=== PATIENT | female | born 1945 | race Caucasian/White ===

== ENCOUNTER → 2017-07-09 11:00 | Outpatient (CLI) | payer MEDICARE, OTHER, SELFPAY | PROVIDERS: Family Provider Internal Medicine; PCP Internal Medicine; Visit Provider Internal Medicine | DX: G47.30 Sleep apnea, unspecified (principal) | CPT/HCPCS: 95806 ==

== ENCOUNTER → 2017-07-25 15:21 | Outpatient (CLI) | payer MEDICARE, OTHER, SELFPAY ==
--- NOTE | 2017-07-25 15:23 | HPBI_ITS ---
MAMMOGRAPHY - BILATERAL SCREENING REASON FOR EXAM: Female, 71 years old. Routine annual screening examination. PERTINENT HISTORY: Non-contributory. Remote left excisional breast biopsy. TECHNIQUE: Digital bilateral breast donna (3D mammographic acquisition) in the CC and MLO projections. 2-D mediolateral oblique (MLO) and craniocaudad (CC) views of both breasts were obtained. CAD: Full Field Digital Mammography with Computer Added Detection was performed. COMPARISON: Comparison is made with prior study dated July 18, 2016 and July 16, 2015. FINDINGS: Breast Composition: The breasts are heterogeneously dense, which may obscure small masses. There are no dominant masses or suspicious calcifications. No other significant abnormalities are identified. There has been no significant change since the prior study. HPBI/SCREENING MAMM (CAD), BILAT IMPRESSION: Stable bilateral screening mammogram. Yearly follow-up mammogram recommended. (A) ASSESSMENT CATEGORY: BIRADS Category 1: Negative. A letter regarding these results will be sent to the patient by the facility within 30 days. Approximately 10% of breast cancers are not detected by mammography. A normal mammogram should not delay biopsy of a clinically suspicious abnormality. [id number] Electronically Signed: Yaya Bartlett MD at 8:07 EST Tel [phone], Service support ,
== END ==
PROVIDERS: Family Provider Internal Medicine; PCP Internal Medicine; Visit Provider Internal Medicine
DX: Z12.31 Encounter for screening mammogram for malignant neoplasm of breast (principal)
CPT/HCPCS: 77063; 77067

== ENCOUNTER → 2017-08-10 10:15 | Outpatient (CLI) | payer MEDICARE, OTHER, SELFPAY ==
[2017-08-10 12:20] LABS: Absolute Lymphocyte Count 1.98 X10^3/ul (0.83-4.51); Absolute Neutrophil Count 2.3 X10^3/uL (2.0-7.7); Basophil# 0.03 X10^3/uL; Basophil% 0.6 % (0-1); Eosinophil# 0.19 X10^3/uL; Hematocrit 47.1 % (37-47); Hemoglobin 15.6 g/dl (12.0-15.0); Lymphocyte # 1.98 X10^3/ul (4.0); Lymphocyte % 41.2 % (19-41); Mean Corp Hgb Conc 33.1 g/gl (32-36); Mean Corpuscular Hgb 30.4 pg (27.0-32.0); Mean Corpuscular Volume 91.8 fL (81-99); Mean Platelet Vol. 10.9 fl (6.2-12.0); Monocyte# 0.27 X10^3/uL; Monocyte% 5.6 % (0-10); Neutrophil # 2.34 X10^3/uL (2.7-7.7); Neutrophil % 48.6 % (47-70); Platelet Count 267 K/mm3 (150-450); RBC Distribution Width CV 13.4 % (11.6-14.6); RBC Distribution Width SD 44.7 fl (35.1-43.9); Red Blood Count 5.13 M/mm3 (4.2-5.4); White Blood Count 4.8 K/mm3 (4.4-11.0)
[2017-08-10 12:22] LABS: POSITIVE COUNT NO; POSITIVE DIFFERENTIAL NO; POSITIVE MORPHOLOGY NO
[2017-08-10 12:28] LABS: ALB/GLOB Ratio 1.2 RATIO (0.9-2.4); AST(SGOT) 31 U/L (15-37); Alanine Aminotransfer ALT/SGPT 38 U/L (13-56); Albumin, Serum 3.9 g/dL (3.2-5.0); Alkaline Phosphatase 51 U/L (45-117); Anion Gap 10 (5-15); BUN 16 mg/dL (7-18); BUN/Creat Ratio 18.7 RATIO (10-20); Calcium,Total 8.8 mg/dL (8.5-10.1); Chloride 106 mmol/L (98-107); Creatinine, Serum 0.86 mg/dL (0.55-1.02); EST Glomerular Filtration Rate 70 mL/min (>60); Est Glom Filt Rate - Afr Amer 85 mL/min (>60); Globulin 3.3 g/dL (2.2-4.2); Glucose 94 mg/dL (74-106); Protein, Total 7.2 g/dL (6.4-8.2); Sodium Level 140 mmol/L (136-145)
== END ==
PROVIDERS: Family Provider Internal Medicine; PCP Internal Medicine; Visit Provider Internal Medicine Rheumatology
DX: M06.00 Rheumatoid arthritis without rheumatoid factor, unspecified site (principal); Z79.899 Other long term (current) drug therapy; M17.0 Bilateral primary osteoarthritis of knee
CPT/HCPCS: 36415; 80053; 85025

== ENCOUNTER → 2018-01-01 13:51 | Outpatient (CLI) | payer MEDICARE, OTHER, SELFPAY ==
[2018-01-01 15:52] LABS: Absolute Lymphocyte Count 2.05 X10^3/ul (0.83-4.51); Absolute Neutrophil Count 2.2 X10^3/uL (2.0-7.7); Basophil# 0.06 X10^3/uL; Basophil% 1.2 % (0-1); Eosinophil# 0.32 X10^3/uL; Eosinophils% 6.4 % (0-5); Hematocrit 43.4 % (37-47); Hemoglobin 14.9 g/dl (12.0-15.0); Lymphocyte # 2.05 X10^3/ul (4.0); Mean Corp Hgb Conc 34.3 g/gl (32-36); Mean Corpuscular Hgb 31.4 pg (27.0-32.0); Mean Corpuscular Volume 91.4 fL (81-99); Mean Platelet Vol. 11.5 fl (6.2-12.0); Monocyte# 0.39 X10^3/uL; Monocyte% 7.8 % (0-10); Neutrophil # 2.17 X10^3/uL (2.7-7.7); Neutrophil % 43.4 % (47-70); Platelet Count 263 K/mm3 (150-450); RBC Distribution Width CV 13.4 % (11.6-14.6); RBC Distribution Width SD 44.1 fl (35.1-43.9); Red Blood Count 4.75 M/mm3 (4.2-5.4)
[2018-01-01 15:59] LABS: ALB/GLOB Ratio 1.2 RATIO (0.9-2.4); AST(SGOT) 26 U/L (15-37); Alanine Aminotransfer ALT/SGPT 27 U/L (13-56); Albumin, Serum 3.7 g/dL (3.2-5.0); Alkaline Phosphatase 67 U/L (45-117); Anion Gap 8 (5-15); BUN 16 mg/dL (7-18); BUN/Creat Ratio 16.9 RATIO (10-20); Calcium,Total 8.5 mg/dL (8.5-10.1); Chloride 109 mmol/L (98-107); Creatinine, Serum 0.95 mg/dL (0.55-1.02); EST Glomerular Filtration Rate 62 mL/min (>60); Est Glom Filt Rate - Afr Amer 75 mL/min (>60); Globulin 3.1 g/dL (2.2-4.2); Glucose 144 mg/dL (74-106); Potassium 4.1 mmol/L (3.5-5.1); Protein, Total 6.8 g/dL (6.4-8.2); Sodium Level 143 mmol/L (136-145)
[2018-01-01 16:00] LABS: POSITIVE COUNT NO; POSITIVE DIFFERENTIAL NO; POSITIVE MORPHOLOGY NO
== END ==
PROVIDERS: Family Provider Internal Medicine; PCP Internal Medicine; Visit Provider Internal Medicine Rheumatology
DX: M06.00 Rheumatoid arthritis without rheumatoid factor, unspecified site (principal); Z79.899 Other long term (current) drug therapy; M17.0 Bilateral primary osteoarthritis of knee; M81.0 Age-related osteoporosis without current pathological fracture; M47.897 Other spondylosis, lumbosacral region; M47.892 Other spondylosis, cervical region; M50.30 Other cervical disc degeneration, unspecified cervical region; E78.5 Hyperlipidemia, unspecified; G47.33 Obstructive sleep apnea (adult) (pediatric)
CPT/HCPCS: 36415; 80053; 85025

== ENCOUNTER → 2018-03-29 13:51 | Outpatient (CLI) | payer MEDICARE, OTHER, SELFPAY ==
--- NOTE | 2018-03-29 13:57 | US_ITS ---
STUDY: ULTRASOUND BREAST - LEFT REASON FOR EXAM: Female, 72 years old. Dimpling of the left periareolar region. TECHNIQUE: Axial and longitudinal images of the LEFT breast were performed with a high resolution ultrasound transducer. COMPARISON: Comparison is made with prior mammogram done earlier today. FINDINGS: LEFT Breast: There is evidence of a dilated subareolar ducts. No solid or cystic mass lesion is seen. US/Breast Limited Unilateral IMPRESSION: Mildly dilated subareolar ducts. Routine mammographic follow-up is recommended. ASSESSMENT CATEGORY: BIRADS Category 2: Benign. A letter regarding these results will be sent to the patient by the facility within 30 days. Electronically Signed: Yaya Bartlett MD at 15:07 EDT Tel [phone], Service support ,
--- NOTE | 2018-03-29 13:57 | BI_ITS ---
MAMMOGRAPHY - UNILATERAL DIAGNOSTIC: LEFT BREAST REASON FOR EXAM: Female, 72 years old. Dimpling in the upper outer quadrant of the left breast. Remote left excisional breast biopsy. PERTINENT HISTORY: Non-contributory. TECHNIQUE: Digital unilateral breast donna (3D mammographic acquisition) in the CC and MLO projections. 2-D mediolateral oblique (MLO) and craniocaudad (CC) views of both breasts were obtained. CAD: Full Field Digital Mammography with Computer Added Detection was performed. COMPARISON: Comparison is made with prior mammogram dated July 17, 2017. FINDINGS: Breast Composition: The breasts are heterogeneously dense, which may obscure small masses. There are no dominant masses or suspicious calcifications. No other significant abnormalities are identified. There has been no significant change since the prior study. BI/DIAG MAMM W/CAD, BILAT IMPRESSION: Stable unilateral diagnostic mammogram. Ultrasound of the left breast is recommended for further evaluation. ASSESSMENT CATEGORY: BIRADS Category 0: Incomplete. Need additional imaging evaluation. A letter regarding these results will be sent to the patient by the facility within 30 days. Approximately 10% of breast cancers are not detected by mammography. A normal mammogram should not delay biopsy of a clinically suspicious abnormality. Electronically Signed: Yaya Bartlett MD at 15:07 EDT Tel [phone], Service support ,
== END ==
PROVIDERS: Family Provider Internal Medicine; PCP Internal Medicine; Referring Provider Internal Medicine; Visit Provider Internal Medicine
DX: Z12.31 Encounter for screening mammogram for malignant neoplasm of breast (principal); N63.20 Unspecified lump in the left breast, unspecified quadrant
CPT/HCPCS: 76642; 77063; 77066

== ENCOUNTER → 2018-04-02 07:32 | Outpatient (CLI) | payer MEDICARE, OTHER, SELFPAY ==
[2018-04-02 10:26] LABS: Absolute Lymphocyte Count 2.09 X10^3/ul (0.83-4.51); Basophil# 0.05 X10^3/uL; Basophil% 0.8 % (0-1); Eosinophil# 0.27 X10^3/uL; Eosinophils% 4.6 % (0-5); Hematocrit 47.3 % (37-47); Hemoglobin 15.9 g/dl (12.0-15.0); Lymphocyte # 2.09 X10^3/ul (4.0); Lymphocyte % 35.2 % (19-41); Mean Corp Hgb Conc 33.6 g/gl (32-36); Mean Corpuscular Hgb 30.6 pg (27.0-32.0); Mean Corpuscular Volume 91.1 fL (81-99); Mean Platelet Vol. 10.8 fl (6.2-12.0); Monocyte% 8.4 % (0-10); Neutrophil # 3.02 X10^3/uL (2.7-7.7); Platelet Count 325 K/mm3 (150-450); RBC Distribution Width CV 13.1 % (11.6-14.6); RBC Distribution Width SD 43.3 fl (35.1-43.9); Red Blood Count 5.19 M/mm3 (4.2-5.4); White Blood Count 5.9 K/mm3 (4.4-11.0)
[2018-04-02 10:27] LABS: POSITIVE COUNT NO; POSITIVE DIFFERENTIAL NO; POSITIVE MORPHOLOGY NO
[2018-04-02 10:39] LABS: ALB/GLOB Ratio 1.1 RATIO (0.9-2.4); AST(SGOT) 32 U/L (15-37); Alanine Aminotransfer ALT/SGPT 47 U/L (13-56); Albumin, Serum 3.8 g/dL (3.2-5.0); Alkaline Phosphatase 75 U/L (45-117); Anion Gap 9 (5-15); BUN 20 mg/dL (7-18); BUN/Creat Ratio 21.9 RATIO (10-20); Calcium,Total 8.8 mg/dL (8.5-10.1); Chloride 106 mmol/L (98-107); Creatinine, Serum 0.92 mg/dL (0.55-1.02); EST Glomerular Filtration Rate 65 mL/min (>60); Est Glom Filt Rate - Afr Amer 78 mL/min (>60); Globulin 3.4 g/dL (2.2-4.2); Glucose 127 mg/dL (74-106); Potassium 4.4 mmol/L (3.5-5.1); Protein, Total 7.2 g/dL (6.4-8.2); Sodium Level 142 mmol/L (136-145)
== END ==
PROVIDERS: Family Provider Internal Medicine; PCP Internal Medicine; Referring Provider Internal Medicine Rheumatology; Visit Provider Internal Medicine Rheumatology
DX: M06.072 Rheumatoid arthritis without rheumatoid factor, left ankle and foot (principal); Z79.899 Other long term (current) drug therapy; M17.0 Bilateral primary osteoarthritis of knee; M81.0 Age-related osteoporosis without current pathological fracture; M47.897 Other spondylosis, lumbosacral region; M47.892 Other spondylosis, cervical region; M50.30 Other cervical disc degeneration, unspecified cervical region; E78.5 Hyperlipidemia, unspecified; G47.33 Obstructive sleep apnea (adult) (pediatric)
CPT/HCPCS: 36415; 80053; 85025

== ENCOUNTER → 2018-05-16 09:52 | Outpatient (CLI) | payer MEDICARE, OTHER, SELFPAY ==
--- NOTE | 2018-05-16 10:06 | EKG12_ITS ---
Test Reason : PRE OP Blood Pressure : / mmHG Vent. Rate : 088 BPM Atrial Rate : 088 BPM P-R Int : 148 ms QRS Dur : 080 ms QT Int : 392 ms P-R-T Axes : 051 011 057 degrees QTc Int : 474 ms Normal sinus rhythm Normal ECG When compared with ECG of 01-DEC-2007 17:20, No significant change was found Confirmed by ADRIAN GAN, RALPH ([id number]), newspaper copy editor LIZZY FUENTES ([id number]) on 05/16/2018 12:48:59 PM Referred By: Soto Crane Confirmed By:RALPH CAMPBELL MD
[2018-05-16 11:17] LABS: Hematocrit 46.6 % (37-47); Hemoglobin 15.8 g/dl (12.0-15.0); Mean Corp Hgb Conc 33.9 g/gl (32-36); Mean Corpuscular Hgb 30.2 pg (27.0-32.0); Mean Corpuscular Volume 88.9 fL (81-99); Mean Platelet Vol. 10.8 fl (6.2-12.0); Platelet Count 258 K/mm3 (150-450); RBC Distribution Width CV 12.4 % (11.6-14.6); RBC Distribution Width SD 40.3 fl (35.1-43.9); Red Blood Count 5.24 M/mm3 (4.2-5.4); White Blood Count 8.5 K/mm3 (4.4-11.0)
[2018-05-16 11:18] LABS: Scan Indicated on CBC? Y/N NO
[2018-05-16 11:47] LABS: Anion Gap 8 (5-15); BUN 16 mg/dL (7-18); BUN/Creat Ratio 17.4 RATIO (10-20); Calcium,Total 9.3 mg/dL (8.5-10.1); Chloride 105 mmol/L (98-107); Creatinine, Serum 0.92 mg/dL (0.55-1.02); EST Glomerular Filtration Rate 64 mL/min (>60); Est Glom Filt Rate - Afr Amer 77 mL/min (>60); Glucose 78 mg/dL (74-106); Potassium 4.5 mmol/L (3.5-5.1); Sodium Level 141 mmol/L (136-145)
== END ==
PROVIDERS: Family Provider Internal Medicine; PCP Internal Medicine; Referring Provider Otolaryngology Otolaryngology/Facial Plastic Surgery; Visit Provider Otolaryngology Otolaryngology/Facial Plastic Surgery
DX: Z01.818 Encounter for other preprocedural examination (principal)
CPT/HCPCS: 36415; 80048; 85027; 93005

== ENCOUNTER → 2018-06-26 15:23 | Outpatient (CLI) | payer MEDICARE, OTHER, SELFPAY ==
[2018-06-26 17:48] LABS: ALB/GLOB Ratio 1.1 RATIO (0.9-2.4); AST(SGOT) 25 U/L (15-37); Alanine Aminotransfer ALT/SGPT 32 U/L (13-56); Albumin, Serum 3.9 g/dL (3.2-5.0); Alkaline Phosphatase 62 U/L (45-117); Anion Gap 11 (5-15); BUN 16 mg/dL (7-18); BUN/Creat Ratio 19.4 RATIO (10-20); Calcium,Total 9.1 mg/dL (8.5-10.1); Chloride 107 mmol/L (98-107); Creatinine, Serum 0.82 mg/dL (0.55-1.02); EST Glomerular Filtration Rate 73 mL/min (>60); Est Glom Filt Rate - Afr Amer 88 mL/min (>60); Globulin 3.4 g/dL (2.2-4.2); Glucose 109 mg/dL (74-106); Potassium 3.7 mmol/L (3.5-5.1); Protein, Total 7.3 g/dL (6.4-8.2); Sodium Level 145 mmol/L (136-145)
[2018-06-26 17:49] LABS: Absolute Lymphocyte Count 2.14 X10^3/ul (0.83-4.51); Absolute Neutrophil Count 2.7 X10^3/uL (2.0-7.7); Basophil# 0.03 X10^3/uL; Basophil% 0.5 % (0-1); Eosinophil# 0.23 X10^3/uL; Eosinophils% 4.2 % (0-5); Hematocrit 44.7 % (37-47); Hemoglobin 15.2 g/dl (12.0-15.0); Lymphocyte # 2.14 X10^3/ul (4.0); Mean Corpuscular Hgb 30.4 pg (27.0-32.0); Mean Corpuscular Volume 89.4 fL (81-99); Mean Platelet Vol. 11.4 fl (6.2-12.0); Monocyte# 0.42 X10^3/uL; Monocyte% 7.7 % (0-10); Neutrophil # 2.66 X10^3/uL (2.7-7.7); Neutrophil % 48.4 % (47-70); Platelet Count 255 K/mm3 (150-450); RBC Distribution Width CV 12.9 % (11.6-14.6); RBC Distribution Width SD 41.6 fl (35.1-43.9); White Blood Count 5.5 K/mm3 (4.4-11.0)
[2018-06-26 17:50] LABS: POSITIVE COUNT NO; POSITIVE DIFFERENTIAL NO; POSITIVE MORPHOLOGY NO
== END ==
PROVIDERS: Family Provider Internal Medicine; PCP Internal Medicine; Referring Provider Internal Medicine Rheumatology; Visit Provider Internal Medicine Rheumatology
DX: M06.00 Rheumatoid arthritis without rheumatoid factor, unspecified site (principal); Z79.899 Other long term (current) drug therapy; M17.0 Bilateral primary osteoarthritis of knee; M81.0 Age-related osteoporosis without current pathological fracture; M47.897 Other spondylosis, lumbosacral region; M47.892 Other spondylosis, cervical region; M50.30 Other cervical disc degeneration, unspecified cervical region; E78.5 Hyperlipidemia, unspecified; G47.33 Obstructive sleep apnea (adult) (pediatric)
CPT/HCPCS: 36415; 80053; 85025

== ENCOUNTER → 2018-07-11 09:01 | Outpatient (CLI) | payer MEDICARE, OTHER, SELFPAY ==
--- NOTE | 2018-07-11 09:04 | BI_ITS ---
MAMMOGRAPHY - BILATERAL DIAGNOSTIC REASON FOR EXAM: Female, 72 years old. Skin dimpling of the left perihilar region. PERTINENT HISTORY: Non-contributory. Remote left excisional breast biopsy. TECHNIQUE: Digital bilateral breast donna (3D mammographic acquisition) in the CC and MLO projections. 2-D mediolateral oblique (MLO) and craniocaudad (CC) views of both breasts were obtained. CAD: Full Field Digital Mammography with Computer Added Detection was performed. COMPARISON: Comparison is made with prior examination of July 17, 2017 and March 29, 2018. FINDINGS: Breast Composition: The breasts are heterogeneously dense, which may obscure small masses. There are no dominant masses or suspicious calcifications. No other significant abnormalities are identified. There has been no significant change since the prior study. BI/DIAG MAMM W/CAD, BILAT IMPRESSION: Stable bilateral diagnostic mammogram. One year follow-up recommended. (A) ASSESSMENT CATEGORY: BIRADS Category 2: Benign. A letter regarding these results will be sent to the patient by the facility within 30 days. Approximately 10% of breast cancers are not detected by mammography. A normal mammogram should not delay biopsy of a clinically suspicious abnormality. Electronically Signed: Yaya Bartlett MD at 12:29 EST , Service support ,
--- NOTE | 2018-07-11 09:37 | US_ITS ---
STUDY: ULTRASOUND BREAST - LEFT REASON FOR EXAM: Female, 72 years old. Six-month follow-up examination. TECHNIQUE: Axial and longitudinal images of the LEFT breast were performed with a high resolution ultrasound transducer. COMPARISON: Comparison is made with prior mammogram done earlier today as well as prior ultrasound of the left breast dated March 29, 2018. FINDINGS: LEFT Breast: The upper outer quadrant of the left breast was examined by ultrasound. There are minimally dilated subareolar ducts. No solid or cystic mass lesion is seen. US/Breast Limited Unilateral IMPRESSION: Stable mildly dilated subareolar ducts. ASSESSMENT CATEGORY: BIRADS Category 2: Benign. A letter regarding these results will be sent to the patient by the facility within 30 days. Electronically Signed: Yaya Bartlett MD at 13:52 EST , Service support ,
== END ==
PROVIDERS: Family Provider Internal Medicine; PCP Internal Medicine; Referring Provider Internal Medicine; Visit Provider Internal Medicine
DX: N63.21 Unspecified lump in the left breast, upper outer quadrant (principal)
CPT/HCPCS: 76642; 77062; 77066; G0279

== ENCOUNTER → 2018-07-23 08:31 | Outpatient (CLI) | payer MEDICARE, OTHER, SELFPAY ==
--- NOTE | 2018-07-23 08:35 | BD_ITS ---
STUDY: DUAL ENERGY X-RAY ABSORPTIOMETRY / DXA REASON FOR EXAM: Female, 72 years old. Early menopause. No loss of height. TECHNIQUE: Bone Mineral Density (BMD) measurements of lumbar spine and bilateral hips were obtained. COMPARISON: Comparison is made with prior study dated July 18, 2016. FINDINGS: Lumbar Spine (L1-L4): g/cm2 (1.200) / T-score (0.3) / Z-score (2.0) Findings are suggestive of normal bone density with a low fracture risk. Left Femur Total: g/cm2 (0.872) / T-score (-1.1) / Z-score (0.4) Left Femoral Neck: g/cm2 (0.786) / T-score (-1.8) / Z-score (-0.1) Right Femur Total: g/cm2 (0.879) / T-score (-1.0) / Z-score (0.5) Right Femoral Neck: g/cm2 (0.833) / T-score (-1.5) / Z-score (0.2) The T-Scores on the most recent prior examination were: Lumbar Spine (L1-L4): There has been improvement of bone density since the previous examination. Left Femur Total: which represents an improvement of 3.9%. Right Femur Total: which represents an improvement of 3.2%. BD/Dexa Bone Density Study IMPRESSION: The patient is considered osteopenic as outlined below according to World Richard Organization (WHO) criteria with a moderate fracture risk. There has been improvement of bone density since the previous examination. Reference Information: The T-score is the number of standard deviations above or below the standard which is normal for young adults at their peak bone mineral density. The World Health Organization (WHO) interprets the T-scores as follows: Above -1 Normal bone density Between -1 and -2.5 Osteopenia Equal to / or below -2.5 Osteoporosis As a practical clinical guideline, osteopenia may be graded as follows: Mild -1 through -1.5 Moderate -1.6 through -2.0 Severe -2.1 through -2.4 The Z-score is the number of standard deviations above or below age-matched controls. A Z-score of less than -1.5 would be considered abnormal. References: 1. NIH Osteoporosis and Related Bone Diseases http://www.osteo.org 2. International Society for Clinical Densitometry http://www.iscd.org 3. National Osteoporosis Foundation http://www.nof.org Electronically Signed: Yaya Bartlett, at 15:16 EST , Service support ,
== END ==
PROVIDERS: Family Provider Internal Medicine; PCP Internal Medicine; Referring Provider Internal Medicine; Visit Provider Internal Medicine
DX: Z78.0 Asymptomatic menopausal state (principal); M85.50 Aneurysmal bone cyst, unspecified site
CPT/HCPCS: 77080

== ENCOUNTER → 2018-09-25 | Outpatient (CLI) | payer MEDICARE, OTHER, SELFPAY ==
[2018-09-25 17:28] LABS: Absolute Lymphocyte Count 2.85 X10^3/ul (0.83-4.51); Absolute Neutrophil Count 2.8 X10^3/uL (2.0-7.7); Basophil# 0.02 X10^3/uL; Basophil% 0.3 % (0-1); Eosinophils% 1.6 % (0-5); Hematocrit 46.6 % (37-47); Hemoglobin 15.6 g/dl (12.0-15.0); Lymphocyte # 2.85 X10^3/ul (4.0); Lymphocyte % 45.4 % (19-41); Mean Corp Hgb Conc 33.5 g/gl (32-36); Mean Corpuscular Hgb 29.3 pg (27.0-32.0); Mean Corpuscular Volume 87.4 fL (81-99); Mean Platelet Vol. 11.2 fl (6.2-12.0); Monocyte# 0.47 X10^3/uL; Monocyte% 7.5 % (0-10); Neutrophil # 2.83 X10^3/uL (2.7-7.7); Platelet Count 258 K/mm3 (150-450); RBC Distribution Width CV 13.5 % (11.6-14.6); Red Blood Count 5.33 M/mm3 (4.2-5.4); White Blood Count 6.3 K/mm3 (4.4-11.0)
[2018-09-25 17:41] LABS: POSITIVE COUNT NO; POSITIVE DIFFERENTIAL NO; POSITIVE MORPHOLOGY NO
[2018-09-25 17:43] LABS: ALB/GLOB Ratio 1.3 RATIO (0.9-2.4); AST(SGOT) 25 U/L (15-37); Alanine Aminotransfer ALT/SGPT 33 U/L (13-56); Albumin, Serum 4.3 g/dL (3.2-5.0); Alkaline Phosphatase 58 U/L (45-117); Anion Gap 9 (5-15); BUN 17 mg/dL (7-18); BUN/Creat Ratio 18.5 RATIO (10-20); Calcium,Total 9.5 mg/dL (8.5-10.1); Chloride 104 mmol/L (98-107); Creatinine, Serum 0.92 mg/dL (0.55-1.02); EST Glomerular Filtration Rate 64 mL/min (>60); Est Glom Filt Rate - Afr Amer 77 mL/min (>60); Globulin 3.3 g/dL (2.2-4.2); Glucose 89 mg/dL (74-106); Potassium 3.7 mmol/L (3.5-5.1); Protein, Total 7.6 g/dL (6.4-8.2); Sodium Level 141 mmol/L (136-145)
== END | disposition home or self-care (01) ==
LOC: MTLAB 15:35
PROVIDERS: Family Provider Internal Medicine; PCP Internal Medicine; Referring Provider Internal Medicine Rheumatology; Visit Provider Internal Medicine Rheumatology
DX: M06.00 Rheumatoid arthritis without rheumatoid factor, unspecified site (principal); Z79.899 Other long term (current) drug therapy; M17.0 Bilateral primary osteoarthritis of knee; M81.0 Age-related osteoporosis without current pathological fracture; M47.897 Other spondylosis, lumbosacral region; M47.892 Other spondylosis, cervical region; M50.30 Other cervical disc degeneration, unspecified cervical region; E78.5 Hyperlipidemia, unspecified; G47.33 Obstructive sleep apnea (adult) (pediatric)
CPT/HCPCS: 36415; 80053; 85025

== ENCOUNTER → 2018-09-26 | Outpatient (CLI) | payer MEDICARE, OTHER, SELFPAY ==
--- NOTE | 2018-09-26 12:37 | RAD_ITS ---
STUDY: X-RAY - PELVIS AND RIGHT HIP REASON FOR EXAM: Female, 72 years old. Right hip pain and groin pain. TECHNIQUE: 3 views of the pelvis and hip. COMPARISON: None. FINDINGS: There is a non-specific bowel gas pattern. Normal visualized soft tissue structures. Normal bilateral iliac wings, sacroiliac joints and visualized sacrum. Normal bilateral superior and inferior pubic rami. Normal pubic symphysis. Normal bilateral ischial tuberosities. There are osteoarthritic changes of the femoral head with marginal osteophyte formation. Normal acetabulum. There is mild articular joint space narrowing of the hip. Findings suggestive of a right femoral acetabular impingement. RAD/HIP, UNI W/ Pelvis 2-3 Views IMPRESSION: Osteoarthritis. Findings suggestive of a right femoral acetabular impingement. Electronically Signed: Yaya Bartlett, at 13:51 EDT , Service support ,
== END | disposition home or self-care (01) ==
LOC: MTRAD 12:36
PROVIDERS: Family Provider Internal Medicine; PCP Internal Medicine; Referring Provider Internal Medicine; Visit Provider Internal Medicine
DX: R10.31 Right lower quadrant pain (principal)
CPT/HCPCS: 73502

== ENCOUNTER → 2018-10-04 | Outpatient (CLI) | payer MEDICARE, OTHER, SELFPAY ==
--- NOTE | 2018-10-04 18:15 | MRI_ITS ---
STUDY: MRI RIGHT HIP REASON FOR EXAM: Female, 72 years old. Pain. Impingement. TECHNIQUE: Standardized fat and water weighted pulse sequences were obtained in all 3 orthogonal planes. COMPARISON: X-ray September 26, 2018. FINDINGS: There is moderate articular narrowing of the hip joint, with greater than 50% loss of the hyaline cartilage. There is moderate joint effusion There is lateral osteoarthritic spurring of the acetabular rim. There is edema of the anterior acetabulum. There is tear of the superior labrum, series 4 and 5 image 15/ and 16/. There is lateral osteoarthritic spurring of the femoral head. Normal femoral neck and intratrochanteric region. There is no demonstrated fracture. Normal gluteus minimus, medius and iliopsoas tendons and distal insertions. There is trochanteric and iliopsoas bursitis. Normal superior and inferior pubic rami. There is narrowing of the pubic symphysis. Normal ischial tuberosity. Normal origin of the hamstring tendons. Normal visualized iliac wing, sacroiliac joint, and sacral ala. Normal visualized soft tissue structures of the pelvis. Uterus is not seen consistent with hysterectomy. There is a pessary in the vagina. There are degenerative changes of the visualized lumbar spine. MRI/Lower Ext Joint Only (Routine) IMPRESSION: Degenerative change of the right hip with tear of the labrum and joint effusion. Reactive edema and stress injury of the acetabulum. Electronically Signed: Sunday Norris MD at 10:46 EDT , Service support ,
== END | disposition home or self-care (01) ==
LOC: MRI 17:42
PROVIDERS: Family Provider Internal Medicine; PCP Internal Medicine; Referring Provider Internal Medicine; Visit Provider Internal Medicine
DX: M25.851 Other specified joint disorders, right hip (principal)
CPT/HCPCS: 73721

== ENCOUNTER → 2018-10-07 | Outpatient (CLI) | payer MEDICARE, OTHER, SELFPAY ==
[2018-10-07 18:34] LABS: Body Fluid QC Type(s) BF1Q
[2018-10-07 18:35] LABS: Source- Body Fluid SYNOVIAL
[2018-10-08 14:43] LABS: Pathologist Review Reviewed
== END | disposition home or self-care (01) ==
PROVIDERS: Family Provider Internal Medicine; PCP Internal Medicine; Referring Provider Internal Medicine Rheumatology; Visit Provider Internal Medicine Rheumatology
DX: M06.00 Rheumatoid arthritis without rheumatoid factor, unspecified site (principal); Z79.899 Other long term (current) drug therapy; M17.0 Bilateral primary osteoarthritis of knee; M18.12 Unilateral primary osteoarthritis of first carpometacarpal joint, left hand; M81.0 Age-related osteoporosis without current pathological fracture; M47.897 Other spondylosis, lumbosacral region; M47.892 Other spondylosis, cervical region; M50.30 Other cervical disc degeneration, unspecified cervical region; E78.5 Hyperlipidemia, unspecified; G47.33 Obstructive sleep apnea (adult) (pediatric)
CPT/HCPCS: 89060

== ENCOUNTER 2018-10-24 08:00 | Outpatient (RCR) | payer MEDICARE, OTHER, SELFPAY ==
--- NOTE | 2018-10-24 08:54 | HP.PT.NRP ---
HP - Discharge Summary (1) - Patient Information LIBORIO GENTILE was seen in my office for initial evaluation on . The following Plan of Care was established for this patient: This patient was last seen in our office . Pertinent comments regarding their Physical therapy will appear below: Patient to have hip replacement- will continue HEP in pool and on land- will see after hip replacement At this point I will be discontinuing this patient from physical therapy. I would be happy to see this patient again in the future if found appropriate by the physician. Thank you! DELICIA RuddT
== END 2018-10-24 10:21 | disposition home or self-care (01) ==
LOC: PT 08:00
PROVIDERS: Family Provider Internal Medicine; PCP Internal Medicine; Visit Provider Internal Medicine Rheumatology
DX: M06.051 Rheumatoid arthritis without rheumatoid factor, right hip (principal); M16.11 Unilateral primary osteoarthritis, right hip; M17.0 Bilateral primary osteoarthritis of knee; M18.0 Bilateral primary osteoarthritis of first carpometacarpal joints; M47.897 Other spondylosis, lumbosacral region; M47.892 Other spondylosis, cervical region; M50.30 Other cervical disc degeneration, unspecified cervical region; E78.5 Hyperlipidemia, unspecified; G47.33 Obstructive sleep apnea (adult) (pediatric); Z79.899 Other long term (current) drug therapy

== ENCOUNTER → 2018-11-05 | Outpatient (CLI) | payer MEDICARE, OTHER, SELFPAY ==
--- NOTE | 2018-11-05 15:35 | MRI_ITS ---
HISTORY: Right-sided radiculopathy COMPARISON: MR lumbar spine 03/05/2013 lumbar radiographs 03/18/2013 TECHNIQUE: Multisequence multiplanar MR imaging of the lumbar spine was performed per department protocol without IV gadolinium. # of images incl. paperwork: 165 FINDINGS: There is mild dextroconvex scoliosis centered at the L2-L3 level. There is 4 mm retrolisthesis of L2 upon L3; 3 mm retrolisthesis of L3 upon L4, and grade 1 spondylolisthesis of L4 upon L5 with the anterolisthesis measuring up to 5 mm. Similar lumbar alignment was seen in February 2013. No acute fracture or subluxation. Lumbar vertebral bodies are normal in height. Moderate anterior marginal osteophytes L1-L4 and mild anterior osteophytosis at L5. Mild to moderate degenerative spurring of the visualized lower thoracic spine. Again seen is a large benign hemangioma involving most of the T12 vertebral body. There are severe discogenic endplate marrow changes at the L2-L3 and L3-L4 levels which have progressed in the interim. No focal marrow signal abnormality to suggest a pathologic process. The conus is identified opposite the L1-L2 level and is normal in morphology and signal characteristics. Severe disc space narrowing at L2-L3 and L3-L4 levels and moderate disc space narrowing L4-L5 and mild disc space narrowing L1-L2 and L5-S1 levels. All the lumbar disks are desiccated. T12-L1: No disc bulge or disc protrusion. No canal or neural foraminal stenosis. L1-2: 2 mm asymmetric to the right disc protrusion with 1 mm effacement of the ventral thecal sac without overall canal or foraminal stenosis. L2-3: Combination of retrolisthesis, dextroscoliosis, mild bilateral facet joint arthropathy, and 4 mm disc osteophyte complex results in moderate canal stenosis. No significant neural foraminal stenosis. L3-4: Combination of retrolisthesis, dextroscoliosis, mild bilateral facet joint arthropathy, and ligamentum flavum redundancy and asymmetric to the right 3 mm disc osteophyte complex results in mild canal stenosis and moderate effacement and posterior displacement of the traversing right L4 nerve root. No significant neuroforaminal stenosis. L4-5: Secondary to anterolisthesis at this level there is unroofing of the disc which combined with severe facet joint arthropathy and ligamentum flavum redundancy results in moderate canal stenosis. Mild right foraminal stenosis. No left foraminal stenosis. L5-S1: There is a 3-4 mm broad-based disc protrusion which predominantly effaces the ventral epidural fat. Severe bilateral facet joint arthropathy and ligamentum flavum redundancy more pronounced on the right results in severe right neural foraminal stenosis. No canal or left foraminal stenosis. Paravertebral soft tissues show no gross signal abnormalities. MRI/Spine Lumbar (Routine) IMPRESSION: 1. Moderate effacement and posterior displacement of traversing right L4 nerve root with mild canal stenosis at the L3-L4 level, this is new when compared to February 2013. 2. Severe right neural foraminal stenosis at L5-S1, also new in the interim. 3. Moderate canal stenosis at L2-L3. 4. Moderate canal stenosis and mild right foraminal stenosis at L4-L5. 5. Degenerative retrolisthesis and dextroconvex scoliosis as described with grade 1 spondylolisthesis of L4 upon L5, relatively unchanged alignment. There has been interval progression of discogenic endplate changes at L2-L3 and L3-L4 levels and overall degenerative changes. at 0343 Reported and signed by: Jacob García MD Electronically Signed: Jacob García MD at 3:41 EDT Tel , Service support ,
== END | disposition home or self-care (01) ==
LOC: MRI 15:30
PROVIDERS: Family Provider Internal Medicine; PCP Internal Medicine; Referring Provider Physician Assistant; Visit Provider Physician Assistant
DX: M54.16 Radiculopathy, lumbar region (principal); M43.16 Spondylolisthesis, lumbar region
CPT/HCPCS: 72148

== ENCOUNTER → 2018-12-25 | Outpatient (CLI) | payer MEDICARE, OTHER, SELFPAY ==
[2018-12-25 10:13] LABS: Absolute Neutrophil Count 2.7 X10^3/uL (2.0-7.7); Basophil# 0.05 X10^3/uL; Basophil% 0.9 % (0-1); Eosinophils% 5.4 % (0-5); Hematocrit 43.8 % (37-47); Hemoglobin 14.8 g/dL (12.0-15.0); Lymphocyte % 36.3 % (19-41); Mean Corp Hgb Conc 33.8 g/dL (32-36); Mean Corpuscular Volume 91.6 fL (81-99); Mean Platelet Vol. 10.8 fl (6.2-12.0); Monocyte# 0.48 X10^3/uL; Monocyte% 8.7 % (0-10); NRBC Flagged by Analyzer 0 % (0-5); Neutrophil # 2.67 X10^3/uL (2.7-7.7); Neutrophil % 48.5 % (47-70); Platelet Count 242 K/mm3 (150-450); RBC Distribution Width CV 13.2 % (11.6-14.6); RBC Distribution Width SD 44.2 fl (35.1-43.9); Red Blood Count 4.78 M/mm3 (4.2-5.4); White Blood Count 5.5 K/mm3 (4.4-11.0)
[2018-12-25 10:44] LABS: ALB/GLOB Ratio 1.1 RATIO (0.9-2.4); AST(SGOT) 20 U/L (15-37); Alanine Aminotransfer ALT/SGPT 29 U/L (13-56); Albumin, Serum 3.5 g/dL (3.2-5.0); Alkaline Phosphatase 58 U/L (45-117); Anion Gap 5 (5-15); BUN 17 mg/dL (7-18); BUN/Creat Ratio 21.6 RATIO (10-20); Calcium,Total 8.9 mg/dL (8.5-10.1); Chloride 108 mmol/L (98-107); Creatinine, Serum 0.79 mg/dL (0.55-1.02); EST Glomerular Filtration Rate 77 mL/min (>60); Est Glom Filt Rate - Afr Amer 93 mL/min (>60); Globulin 3.1 g/dL (2.2-4.2); Glucose 81 mg/dL (74-106); Potassium 3.9 mmol/L (3.5-5.1); Protein, Total 6.6 g/dL (6.4-8.2); Sodium Level 142 mmol/L (136-145)
== END | disposition home or self-care (01) ==
LOC: MTLAB 08:28
PROVIDERS: Family Provider Internal Medicine; PCP Internal Medicine; Referring Provider Internal Medicine Rheumatology; Visit Provider Internal Medicine Rheumatology
DX: M06.051 Rheumatoid arthritis without rheumatoid factor, right hip (principal); Z79.899 Other long term (current) drug therapy; M16.11 Unilateral primary osteoarthritis, right hip; M17.0 Bilateral primary osteoarthritis of knee; M18.12 Unilateral primary osteoarthritis of first carpometacarpal joint, left hand; M81.0 Age-related osteoporosis without current pathological fracture; M47.897 Other spondylosis, lumbosacral region; M47.892 Other spondylosis, cervical region; M50.30 Other cervical disc degeneration, unspecified cervical region; E78.5 Hyperlipidemia, unspecified; G47.33 Obstructive sleep apnea (adult) (pediatric)
CPT/HCPCS: 36415; 80053; 85025

== ENCOUNTER 2019-02-05 08:30 | Outpatient (RCR) | payer MEDICARE, OTHER, SELFPAY ==
--- NOTE | 2019-01-13 09:02 | HP.PTEVAL ---
Patient's Visit Information LIBORIO GENTILE is a 73 year old F referred to Physical Therapy by Chapito Moody MD with a diagnosis of Right THR Anterior Approach. Date of Evaluation: 01/13/19 Physical Therapist: Amy Pierce DPT - Visit Plan Frequency: 2x /Week Duration: 4 Weeks Plan: Right THr Anterior Approach 01/06- Follow anterior precautions. - Subjective Findings: Right THR 01/06/[address] Moody- stayed overnight then came home the next day. Lives with in a 2 story home- with hand rail- is able to do them well without issues. Only does them once a day. 3 stairs to enter with a handrail- does have a ramp if needed. Anterior Approach- precautions- wants her to use the walker due to no hyperextension. Bridge, cross ankle, exten leg or rotate. She aches at night- so she took a pain pill. Worst: 8/10 Agg: getting comfortable at night- Only pain she has had during the day is when she gets up. Best: 0/10 Eases: Tylenol. Pain is located in the anterior thigh-No radiating pain. Describes the pain as burning. No joint pain. Little numbness on the lateral thigh but its going away- none in her feet. Everyday is better and better. Sleep: disturbed- slept on her back and has now gotten on her side- pillow between her knees. Fully I prior to sugery- is not back to driving yet. 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 PMHx: RA Meds: Tramadol, Folic acid- Asprin for a month 2x a day. - Objective Posture: FH, RS- but can correct with verbal cues. Gait: with standard walker- step to gait pattern- slow umer with good heel/toe pattern. With FWW: more fluid- step to pattern due to physican recommendation-good heel/toe. Stairs: asc/desc 8 non recip with HR and cane for A- asc used HR significantly for propulsion forwards. Desc uncontrolled and required cane to help with deceleration. HR/TR: good with UE A. SLS: 10 sec- with LOB at end used left leg to right herself. Sensation: WNL to gross touch bilaterally. Observation: incision is covered with bandage which they have been instructed to remove today (7 days post op). No s/s of infection- does have mild bruising along posterior thigh. ROM: Hip: flexion: 90 degrees, Extn: neutral, Abd: WFL Add: to neutral IR/ER: not tested. Knee/Ankle: WFL. Strength: Ankle: 5/5, Knee: 4+/5, Hip: 2+/5 due to lack of ROM- tested at neutral- 3+/5 in available range. Flex: Gastroc: mild restriction Hamstring: moderate restriction. - Goals Goal 1:: Patient will be I with HEP and progression Goal Time Frame: 4-6 Weeks Goal 2:: Patient will ambulate >300 feet with a normalized gait pattern and NO AD Goal Time Frame: 4-6 Weeks Goal 3:: Patient will asc/desc 8 stairs recip with no HR and good pattern Goal Time Frame: 4-6 Weeks Goal 4:: Patient will demo 4+/5 strength in LE where deficit Goal Time Frame: 4-6 Weeks Goal 5:: Patient will return to all normalized ADL's/recreational activities for 1 week Goal Time Frame: 4-6 Weeks - Rehabilitation Potential Physical Therapy Diagnosis: Patient presents with hypomobility- she has decreased ROM, strenghth, flex and muscular endurance s/p Right THR leading to abnormal gait and decreased participation in ADL's. Rehabilitation Potential: Good - Anticipated Interventions Patient/Client Instruction: Educate patient on: Benefits of Fitness Program Therapeutic Exercise to Include: Strength training, Endurance training, Balance training, Coordination, Agility training, Body mechanics, Postural training, Flexibilty training, Gait and locomotor training, Passive ROM, Active ROM, Dynamic Lumbar Stabilization For the Purpose of:: To improve muscle performance and motor function Functional Training to Include: Gait training TENS: Yes Cryotherapy (ice pack, ice massage): Yes Thermo therapy (hot pack): Yes Ultrasound (thermal/non thermal): No For the Purpose of:: To decrease pain, To decrease swelling/inflammation Thank you for the opportunity to evaluate your patient. For Medicare and Medicare HMO plans, please review the plan of care and approve it. It will need to be FAXED BACK to us at [phone] for Medicare purposes. For Medicare only, by signing this I certify the plan of care. Please let me know if there are questions or concerns regarding this plan of care. Physician Signature: Date:
--- NOTE | 2019-03-07 09:56 | HP.PTDCSUM ---
HP - PT D/C Summary It has been my pleasure to treat LIBORIO GENTILE under orders from Chapito Moody MD, for the diagnosis of Right THR Anterior Approach for a total of 9 visit(s). Discharge Date: Please see the following information for a summary of their discharge status. - Subjective Subjective: Pt. reports to feeling well, still sleeps w/ cusihion between legs. HAs returned to all pior activities w/ no complaints. - Pain right hip Pain Intensity (Out of 10): 0 - Overall Improvement % Improvement: 95 - Objective Objective/Function: Posture: RS, FH. Gait: No deviations noted. Stairs: Reciprocal pattern w/ no HR & no deviations. ROM: Hip WFL Knee WFL. Strength: Knee 5/5 Ankle 5/5 Hip 5/5 throughout. Flexibility: Gastroc mild, HS mild. Sensation: WNL to gross B touch - Goals Goal 1:: Patient will be I with HEP and progression Goal Progress: Goal Met Goal 2:: Patient will ambulate >300 feet with a normalized gait pattern and NO AD Goal Progress: Goal Met Goal 3:: Patient will asc/desc 8 stairs recip with no HR and good pattern Goal Progress: Goal Met Goal 4:: Patient will demo 4+/5 strength in LE where deficit Goal Progress: Goal Met Goal 5:: Patient will return to all normalized ADL's/recreational activities for 1 week - Plan Plan: 02/05/19 - Pt. D/C, instructed to cont. HEP on her own & return if any questions. Right THR Anterior Approach 01/06- Follow anterior precautions. - D/C Information If there are questions or concerns regarding this patient's physical therapy, please feel free to call me at [phone]. Thank you for the referral of this patient. Sincerely, Amy Pierce DPT
== END 2019-02-05 19:00 | disposition home or self-care (01) ==
LOC: PT 08:30
PROVIDERS: Family Provider Internal Medicine; PCP Internal Medicine; Visit Provider Orthopaedic Surgery
DX: M16.11 Unilateral primary osteoarthritis, right hip (principal)
CPT/HCPCS: 97110; 97162; 97164

== ENCOUNTER → 2019-03-28 15:17 | Outpatient (CLI) | payer MEDICARE, OTHER, SELFPAY ==
[2019-03-28 17:50] LABS: Absolute Lymphocyte Count 2.15 X10^3/uL (0.83-4.51); Absolute Neutrophil Count 2.4 X10^3/uL (2.0-7.7); Basophil# 0.05 X10^3/uL; Eosinophil# 0.19 X10^3/uL; Eosinophils% 3.7 % (0-5); Hematocrit 44.8 % (37-47); Hemoglobin 14.8 g/dL (12.0-15.0); Lymphocyte # 2.15 X10^3/ul (4.0); Mean Corpuscular Hgb 29.4 pg (27.0-32.0); Mean Corpuscular Volume 89.1 fL (81-99); Mean Platelet Vol. 11.4 fl (6.2-12.0); Monocyte# 0.32 X10^3/uL; Monocyte% 6.3 % (0-10); NRBC Flagged by Analyzer 0 % (0-5); Neutrophil % 46.8 % (47-70); Platelet Count 274 K/mm3 (150-450); RBC Distribution Width CV 13.5 % (11.6-14.6); Red Blood Count 5.03 M/mm3 (4.2-5.4); White Blood Count 5.1 K/mm3 (4.4-11.0)
[2019-03-28 18:17] LABS: ALB/GLOB Ratio 1.1 RATIO (0.9-2.4); AST(SGOT) 34 U/L (15-37); Alanine Aminotransfer ALT/SGPT 34 U/L (13-56); Albumin, Serum 3.8 g/dL (3.2-5.0); Alkaline Phosphatase 54 U/L (45-117); Anion Gap 9 (5-15); BUN 14 mg/dL (7-18); BUN/Creat Ratio 18.4 RATIO (10-20); Chloride 108 mmol/L (98-107); Creatinine, Serum 0.76 mg/dL (0.55-1.02); EST Glomerular Filtration Rate 80 mL/min (>60); Est Glom Filt Rate - Afr Amer 97 mL/min (>60); Globulin 3.4 g/dL (2.2-4.2); Glucose 103 mg/dL (74-106); Potassium 3.8 mmol/L (3.5-5.1); Protein, Total 7.2 g/dL (6.4-8.2); Sodium Level 141 mmol/L (136-145)
== END ==
PROVIDERS: Family Provider Internal Medicine; PCP Internal Medicine; Referring Provider Internal Medicine Rheumatology; Visit Provider Internal Medicine Rheumatology
DX: M06.00 Rheumatoid arthritis without rheumatoid factor, unspecified site (principal); Z79.899 Other long term (current) drug therapy; M16.11 Unilateral primary osteoarthritis, right hip; M17.0 Bilateral primary osteoarthritis of knee; M18.12 Unilateral primary osteoarthritis of first carpometacarpal joint, left hand; M81.0 Age-related osteoporosis without current pathological fracture; M47.897 Other spondylosis, lumbosacral region; M47.892 Other spondylosis, cervical region; M50.30 Other cervical disc degeneration, unspecified cervical region
CPT/HCPCS: 36415; 80053; 85025

== ENCOUNTER → 2019-06-17 10:02 | Outpatient (CLI) | payer MEDICARE, OTHER, SELFPAY ==
[2019-06-17 12:29] LABS: Absolute Lymphocyte Count 1.57 X10^3/uL (0.83-4.51); Absolute Neutrophil Count 3.6 X10^3/uL (2.0-7.7); Basophil# 0.08 X10^3/uL; Basophil% 1.4 % (0-1); Eosinophil# 0.18 X10^3/uL; Eosinophils% 3.1 % (0-5); Hematocrit 46.8 % (37-47); Hemoglobin 15.5 g/dL (12.0-15.0); Lymphocyte # 1.57 X10^3/ul (4.0); Mean Corp Hgb Conc 33.1 g/dL (32-36); Mean Corpuscular Hgb 29.4 pg (27.0-32.0); Mean Corpuscular Volume 88.6 fL (81-99); Mean Platelet Vol. 11.4 fl (6.2-12.0); Monocyte# 0.37 X10^3/uL; Monocyte% 6.4 % (0-10); NRBC Flagged by Analyzer 0 % (0-5); Neutrophil # 3.61 X10^3/uL (2.7-7.7); Neutrophil % 61.9 % (47-70); Platelet Count 295 K/mm3 (150-450); RBC Distribution Width CV 13.8 % (11.6-14.6); RBC Distribution Width SD 44.7 fl (35.1-43.9); Red Blood Count 5.28 M/mm3 (4.2-5.4); White Blood Count 5.8 K/mm3 (4.4-11.0)
[2019-06-17 12:39] LABS: ALB/GLOB Ratio 1.2 RATIO (0.9-2.4); AST(SGOT) 21 U/L (15-37); Alanine Aminotransfer ALT/SGPT 29 U/L (13-56); Albumin, Serum 4.2 g/dL (3.2-5.0); Alkaline Phosphatase 52 U/L (45-117); Anion Gap 6 (5-15); BUN 18 mg/dL (7-18); BUN/Creat Ratio 16.7 RATIO (10-20); Calcium,Total 9.9 mg/dL (8.5-10.1); Chloride 108 mmol/L (98-107); Creatinine, Serum 1.08 mg/dL (0.55-1.02); EST Glomerular Filtration Rate 53 mL/min (>60); Est Glom Filt Rate - Afr Amer 64 mL/min (>60); Globulin 3.4 g/dL (2.2-4.2); Glucose 95 mg/dL (74-106); Potassium 3.7 mmol/L (3.5-5.1); Protein, Total 7.6 g/dL (6.4-8.2); Sodium Level 141 mmol/L (136-145)
== END ==
PROVIDERS: PCP Internal Medicine; Referring Provider Internal Medicine Rheumatology; Visit Provider Internal Medicine Rheumatology
DX: M06.032 Rheumatoid arthritis without rheumatoid factor, left wrist (principal); Z79.899 Other long term (current) drug therapy; M16.11 Unilateral primary osteoarthritis, right hip; M17.0 Bilateral primary osteoarthritis of knee; M18.12 Unilateral primary osteoarthritis of first carpometacarpal joint, left hand; M81.0 Age-related osteoporosis without current pathological fracture; M47.897 Other spondylosis, lumbosacral region; M47.892 Other spondylosis, cervical region; M50.30 Other cervical disc degeneration, unspecified cervical region; E78.5 Hyperlipidemia, unspecified; G47.33 Obstructive sleep apnea (adult) (pediatric)
CPT/HCPCS: 36415; 80053; 85025

== ENCOUNTER → 2019-07-30 10:15 | Outpatient (CLI) | payer MEDICARE, OTHER, SELFPAY ==
--- NOTE | 2019-07-30 10:18 | BI_ITS ---
MAMMOGRAPHY - BILATERAL SCREENING REASON FOR EXAM: Female, 73 years old. Routine annual screening examination. PERTINENT HISTORY: Non-contributory. Remote left excisional breast biopsy. TECHNIQUE: Digital bilateral breast jackelin (3D mammographic acquisition) in the CC and MLO projections. 2-D mediolateral oblique (MLO) and craniocaudad (CC) views of both breasts were obtained. CAD: Full Field Digital Mammography with Computer Added Detection was performed. COMPARISON: Comparison is made with prior mammogram dated July 11, 2018 and July 25, 2017. FINDINGS: Breast Composition: The breasts are heterogeneously dense, which may obscure small masses. There are no dominant masses or suspicious calcifications. No other significant abnormalities are identified. There has been no significant change since the prior study. BI/SCREEN MAMM (CAD) W/JACKELIN BILAT IMPRESSION: Stable bilateral screening mammogram. Yearly follow-up mammogram recommended. (A) ASSESSMENT CATEGORY: BIRADS Category 1: Negative. A letter regarding these results will be sent to the patient by the facility within 30 days. Approximately 10% of breast cancers are not detected by mammography. A normal mammogram should not delay biopsy of a clinically suspicious abnormality. [id number] Electronically Signed: Yaya Bartlett, at 11:01 EST , Service support ,
== END ==
PROVIDERS: Family Provider Internal Medicine; PCP Internal Medicine; Referring Provider Internal Medicine; Visit Provider Internal Medicine
DX: Z12.31 Encounter for screening mammogram for malignant neoplasm of breast (principal)
CPT/HCPCS: 77063; 77067

== ENCOUNTER → 2019-09-12 10:04 | Outpatient (CLI) | payer MEDICARE, OTHER, SELFPAY ==
[2019-09-12 12:26] LABS: Absolute Lymphocyte Count 1.79 X10^3/uL (0.83-4.51); Absolute Neutrophil Count 1.8 X10^3/uL (2.0-7.7); Basophil# 0.06 X10^3/uL; Basophil% 1.4 % (0-1); Eosinophil# 0.24 X10^3/uL; Eosinophils% 5.6 % (0-5); Hematocrit 44.8 % (37-47); Hemoglobin 15.1 g/dL (12.0-15.0); Lymphocyte # 1.79 X10^3/ul (4.0); Mean Corp Hgb Conc 33.7 g/dL (32-36); Mean Corpuscular Volume 89.1 fL (81-99); Mean Platelet Vol. 11.3 fl (6.2-12.0); Monocyte# 0.37 X10^3/uL; Monocyte% 8.7 % (0-10); NRBC Flagged by Analyzer 0 % (0-5); Neutrophil # 1.79 X10^3/uL (2.7-7.7); Neutrophil % 42.1 % (47-70); Platelet Count 252 K/mm3 (150-450); RBC Distribution Width CV 12.8 % (11.6-14.6); RBC Distribution Width SD 41.7 fl (35.1-43.9); Red Blood Count 5.03 M/mm3 (4.2-5.4); White Blood Count 4.3 K/mm3 (4.4-11.0)
[2019-09-12 12:28] LABS: ALB/GLOB Ratio 1.1 RATIO (0.9-2.4); AST(SGOT) 23 U/L (15-37); Alanine Aminotransfer ALT/SGPT 25 U/L (13-56); Albumin, Serum 3.5 g/dL (3.2-5.0); Alkaline Phosphatase 52 U/L (45-117); Anion Gap 7 (5-15); BUN 15 mg/dL (7-18); Calcium,Total 8.8 mg/dL (8.5-10.1); Chloride 104 mmol/L (98-107); Creatinine, Serum 0.83 mg/dL (0.55-1.02); EST Glomerular Filtration Rate 72 mL/min (>60); Est Glom Filt Rate - Afr Amer 87 mL/min (>60); Globulin 3.2 g/dL (2.2-4.2); Glucose 91 mg/dL (74-106); Potassium 3.9 mmol/L (3.5-5.1); Protein, Total 6.7 g/dL (6.4-8.2); Sodium Level 138 mmol/L (136-145)
== END ==
PROVIDERS: PCP Internal Medicine; Referring Provider Internal Medicine Rheumatology; Visit Provider Internal Medicine Rheumatology
DX: M06.09 Rheumatoid arthritis without rheumatoid factor, multiple sites (principal); Z79.899 Other long term (current) drug therapy; M16.11 Unilateral primary osteoarthritis, right hip; M17.0 Bilateral primary osteoarthritis of knee; M18.12 Unilateral primary osteoarthritis of first carpometacarpal joint, left hand; M81.0 Age-related osteoporosis without current pathological fracture; M47.897 Other spondylosis, lumbosacral region; M47.892 Other spondylosis, cervical region; M50.30 Other cervical disc degeneration, unspecified cervical region; E78.5 Hyperlipidemia, unspecified; G47.33 Obstructive sleep apnea (adult) (pediatric)
CPT/HCPCS: 36415; 80053; 85025

== ENCOUNTER → 2019-12-04 08:03 | Outpatient (CLI) | payer MEDICARE, OTHER, SELFPAY ==
[2019-12-04 09:59] LABS: Absolute Lymphocyte Count 1.74 X10^3/uL (0.83-4.51); Absolute Neutrophil Count 3.3 X10^3/uL (2.0-7.7); Basophil# 0.05 X10^3/uL; Basophil% 0.9 % (0-1); Eosinophil# 0.17 X10^3/uL; Hematocrit 46.9 % (37-47); Hemoglobin 15.4 g/dL (12.0-15.0); Lymphocyte # 1.74 X10^3/ul (4.0); Mean Corp Hgb Conc 32.8 g/dL (32-36); Mean Corpuscular Hgb 30.1 pg (27.0-32.0); Mean Corpuscular Volume 91.6 fL (81-99); Mean Platelet Vol. 11.1 fl (6.2-12.0); Monocyte# 0.36 X10^3/uL; Monocyte% 6.4 % (0-10); NRBC Flagged by Analyzer 0 % (0-5); Neutrophil # 3.28 X10^3/uL (2.7-7.7); Neutrophil % 58.3 % (47-70); Platelet Count 274 K/mm3 (150-450); RBC Distribution Width SD 43.8 fl (35.1-43.9); Red Blood Count 5.12 M/mm3 (4.2-5.4); White Blood Count 5.6 K/mm3 (4.4-11.0)
[2019-12-04 10:31] LABS: ALB/GLOB Ratio 1.1 RATIO (0.9-2.4); AST(SGOT) 24 U/L (15-37); Alanine Aminotransfer ALT/SGPT 27 U/L (13-56); Albumin, Serum 3.8 g/dL (3.2-5.0); Alkaline Phosphatase 65 U/L (45-117); Anion Gap 10 (5-15); BUN 23 mg/dL (7-18); BUN/Creat Ratio 23.8 RATIO (10-20); Chloride 103 mmol/L (98-107); Creatinine, Serum 0.97 mg/dL (0.55-1.02); EST Glomerular Filtration Rate 60 mL/min (>60); Est Glom Filt Rate - Afr Amer 73 mL/min (>60); Globulin 3.5 g/dL (2.2-4.2); Glucose 93 mg/dL (74-106); Potassium 3.8 mmol/L (3.5-5.1); Protein, Total 7.3 g/dL (6.4-8.2); Sodium Level 137 mmol/L (136-145)
== END ==
PROVIDERS: PCP Internal Medicine; Visit Provider Internal Medicine Rheumatology
DX: M06.09 Rheumatoid arthritis without rheumatoid factor, multiple sites (principal); Z79.899 Other long term (current) drug therapy; M16.11 Unilateral primary osteoarthritis, right hip; M17.0 Bilateral primary osteoarthritis of knee; M18.12 Unilateral primary osteoarthritis of first carpometacarpal joint, left hand; M81.0 Age-related osteoporosis without current pathological fracture
CPT/HCPCS: 36415; 80053; 85025

== ENCOUNTER → 2020-02-19 08:57 | Outpatient (CLI) | payer MEDICARE, OTHER, SELFPAY ==
[2020-02-19 09:59] LABS: Absolute Lymphocyte Count 1.39 X10^3/uL (0.83-4.51); Absolute Neutrophil Count 4.3 X10^3/uL (2.0-7.7); Basophil# 0.04 X10^3/uL; Basophil% 0.6 % (0-1); Eosinophil# 0.07 X10^3/uL; Eosinophils% 1.1 % (0-5); Hematocrit 45.9 % (37-47); Hemoglobin 15.2 g/dL (12.0-15.0); Lymphocyte # 1.39 X10^3/ul (4.0); Lymphocyte % 22.4 % (19-41); Mean Corp Hgb Conc 33.1 g/dL (32-36); Mean Corpuscular Hgb 30.3 pg (27.0-32.0); Mean Corpuscular Volume 91.6 fL (81-99); Mean Platelet Vol. 10.8 fl (6.2-12.0); Monocyte# 0.35 X10^3/uL; Monocyte% 5.6 % (0-10); NRBC Flagged by Analyzer 0 % (0-5); Neutrophil # 4.34 X10^3/uL (2.7-7.7); Platelet Count 253 K/mm3 (150-450); RBC Distribution Width CV 13.2 % (11.6-14.6); RBC Distribution Width SD 44.4 fl (35.1-43.9); Red Blood Count 5.01 M/mm3 (4.2-5.4); White Blood Count 6.2 K/mm3 (4.4-11.0)
[2020-02-19 10:30] LABS: ALB/GLOB Ratio 1.1 RATIO (0.9-2.4); AST(SGOT) 28 U/L (15-37); Alanine Aminotransfer ALT/SGPT 27 U/L (13-56); Albumin, Serum 3.8 g/dL (3.2-5.0); Alkaline Phosphatase 58 U/L (45-117); Anion Gap 3 (5-15); BUN 19 mg/dL (7-18); BUN/Creat Ratio 20.3 RATIO (10-20); Calcium,Total 9.4 mg/dL (8.5-10.1); Chloride 103 mmol/L (98-107); Creatinine, Serum 0.94 mg/dL (0.55-1.02); EST Glomerular Filtration Rate 62 mL/min (>60); Est Glom Filt Rate - Afr Amer 75 mL/min (>60); Globulin 3.5 g/dL (2.2-4.2); Glucose 93 mg/dL (74-106); Potassium 4.3 mmol/L (3.5-5.1); Protein, Total 7.3 g/dL (6.4-8.2); Sodium Level 138 mmol/L (136-145)
== END ==
PROVIDERS: PCP Internal Medicine; Referring Provider Internal Medicine Rheumatology; Visit Provider Internal Medicine Rheumatology
DX: M06.09 Rheumatoid arthritis without rheumatoid factor, multiple sites (principal); Z79.899 Other long term (current) drug therapy; M16.11 Unilateral primary osteoarthritis, right hip; M17.0 Bilateral primary osteoarthritis of knee; M18.12 Unilateral primary osteoarthritis of first carpometacarpal joint, left hand; M81.0 Age-related osteoporosis without current pathological fracture; M47.897 Other spondylosis, lumbosacral region; M47.892 Other spondylosis, cervical region; M50.30 Other cervical disc degeneration, unspecified cervical region; E78.5 Hyperlipidemia, unspecified; G47.33 Obstructive sleep apnea (adult) (pediatric)
CPT/HCPCS: 36415; 80053; 85025

== ENCOUNTER → 2020-03-25 | Outpatient (CLI) | payer MEDICARE, OTHER, SELFPAY ==
[2020-03-25 14:33] LABS: CRP < 2.90 mg/L (0.0-3.0)
[2020-03-25 14:42] LABS: Erythrocyte Sedimentation Rate 2 mm/hr (0-30)
== END | disposition home or self-care (01) ==
PROVIDERS: PCP Internal Medicine; Visit Provider Internal Medicine
DX: R51.9 Headache, unspecified (principal)
CPT/HCPCS: 85652; 86140

== ENCOUNTER → 2020-05-12 08:07 | Outpatient (CLI) | payer MEDICARE, OTHER, SELFPAY ==
[2020-05-12 10:09] LABS: Absolute Lymphocyte Count 2.26 X10^3/uL (0.83-4.51); Absolute Neutrophil Count 1.8 X10^3/uL (2.0-7.7); Basophil# 0.06 X10^3/uL; Basophil% 1.3 % (0-1); Eosinophil# 0.12 X10^3/uL; Eosinophils% 2.6 % (0-5); Hematocrit 48.3 % (37-47); Hemoglobin 15.9 g/dL (12.0-15.0); Lymphocyte # 2.26 X10^3/ul (4.0); Lymphocyte % 48.2 % (19-41); Mean Corp Hgb Conc 32.9 g/dL (32-36); Mean Corpuscular Hgb 30.9 pg (27.0-32.0); Mean Platelet Vol. 11.5 fl (6.2-12.0); Monocyte# 0.44 X10^3/uL; Monocyte% 9.4 % (0-10); NRBC Flagged by Analyzer 0 % (0-5); Neutrophil % 38.3 % (47-70); Platelet Count 300 K/mm3 (150-450); RBC Distribution Width CV 12.9 % (11.6-14.6); Red Blood Count 5.14 M/mm3 (4.2-5.4); White Blood Count 4.7 K/mm3 (4.4-11.0)
[2020-05-12 10:28] LABS: ALB/GLOB Ratio 1.2 RATIO (0.9-2.4); AST(SGOT) 21 U/L (15-37); Alanine Aminotransfer ALT/SGPT 27 U/L (13-56); Albumin, Serum 3.8 g/dL (3.2-5.0); Alkaline Phosphatase 48 U/L (45-117); Anion Gap 5 (5-15); BUN 15 mg/dL (7-18); BUN/Creat Ratio 18.2 RATIO (10-20); Calcium,Total 9.2 mg/dL (8.5-10.1); Chloride 106 mmol/L (98-107); Creatinine, Serum 0.82 mg/dL (0.55-1.02); EST Glomerular Filtration Rate 72 mL/min (>60); Est Glom Filt Rate - Afr Amer 88 mL/min (>60); Globulin 3.2 g/dL (2.2-4.2); Glucose 65 mg/dL (74-106); Sodium Level 140 mmol/L (136-145)
== END ==
PROVIDERS: PCP Internal Medicine; Referring Provider Internal Medicine Rheumatology; Visit Provider Internal Medicine Rheumatology
DX: M06.00 Rheumatoid arthritis without rheumatoid factor, unspecified site (principal); Z79.899 Other long term (current) drug therapy; M16.11 Unilateral primary osteoarthritis, right hip; M17.0 Bilateral primary osteoarthritis of knee; M18.12 Unilateral primary osteoarthritis of first carpometacarpal joint, left hand; M81.0 Age-related osteoporosis without current pathological fracture; M47.897 Other spondylosis, lumbosacral region; M47.892 Other spondylosis, cervical region; M50.30 Other cervical disc degeneration, unspecified cervical region; E78.5 Hyperlipidemia, unspecified; G47.33 Obstructive sleep apnea (adult) (pediatric)
CPT/HCPCS: 36415; 80053; 85025

== ENCOUNTER → 2020-06-14 10:21 | Outpatient (CLI) | payer MEDICARE, OTHER, SELFPAY ==
[2020-06-14 10:30] LABS: Pathologist Comment May follow
[2020-06-14 11:20] LABS: Synovial Fld Mononuclear WBC % 32.9 %; Synovial Fld Polynuclear WBC # 7.493 10^3/uL; Synovial Fld Polynuclear WBC % 67.1 %
[2020-06-14 11:34] LABS: AUTO B FLUID DILUENT BKGD CT WBC <0.1 RBC <0.01 (W<.1,R<.01); Appearance /Synovial Fluid Sl Cl (CLEAR); Color / Synovial Fluid Yellow (Pale Yellow); Source / Synovial Fluid LEFT KNEE; Source- Body Fluid SYNOVIAL
[2020-06-14 12:27] LABS: Lymph 34 %; Neutrophil 66 % (0-25)
[2020-06-14 12:28] LABS: Body Fluid QC Type(s) BF1Q,BF2Q; RBC /Synovial Fluid 32 /mm3 (0)
[2020-06-15 12:16] LABS: Pathologist Review Reviewed
== END ==
PROVIDERS: PCP Internal Medicine; Visit Provider Internal Medicine Rheumatology
DX: M06.00 Rheumatoid arthritis without rheumatoid factor, unspecified site (principal); Z79.899 Other long term (current) drug therapy; M16.11 Unilateral primary osteoarthritis, right hip; M17.0 Bilateral primary osteoarthritis of knee; M18.12 Unilateral primary osteoarthritis of first carpometacarpal joint, left hand; M81.0 Age-related osteoporosis without current pathological fracture; M47.897 Other spondylosis, lumbosacral region; M47.892 Other spondylosis, cervical region; M50.30 Other cervical disc degeneration, unspecified cervical region; E78.5 Hyperlipidemia, unspecified; G47.33 Obstructive sleep apnea (adult) (pediatric)
CPT/HCPCS: 87070; 87075; 87205; 89050; 89051; 89060

== ENCOUNTER 2020-07-02 15:59 | Inpatient (IN) | payer MEDICARE, OTHER, SELFPAY ==
[2020-07-02 14:17] VITALS: BP 143/84; PULSE 88; RESP 16; TEMP 36.8; O2SAT 97
[2020-07-02 14:47] VITALS: BMI 21.8
[2020-07-02 14:57] VITALS: BMI 21.8
[2020-07-02 16:41] LABS: Hematocrit 46.8 % (37-47); Hemoglobin 15.4 g/dL (12.0-15.0); Mean Corp Hgb Conc 32.9 g/dL (32-36); Mean Corpuscular Hgb 30.4 pg (27.0-32.0); Mean Corpuscular Volume 92.3 fL (81-99); Mean Platelet Vol. 10.9 fl (6.2-12.0); Platelet Count 196 K/mm3 (150-450); RBC Distribution Width CV 12.5 % (11.6-14.6); RBC Distribution Width SD 42.3 fl (35.1-43.9); Red Blood Count 5.07 M/mm3 (4.2-5.4); White Blood Count 3.7 K/mm3 (4.4-11.0)
[2020-07-02 16:43] LABS: Anion Gap 4 (5-15); BUN 13 mg/dL (7-18); BUN/Creat Ratio 16.5 RATIO (10-20); Chloride 104 mmol/L (98-107); Creatinine, Serum 0.79 mg/dL (0.55-1.02); EST Glomerular Filtration Rate 76 mL/min (>60); Est Glom Filt Rate - Afr Amer 92 mL/min (>60); Estimated Creatinine Clearance 40.22 ml/min; Glucose 88 mg/dL (74-106); POSITIVE COUNT NO; POSITIVE DIFFERENTIAL NO; POSITIVE MORPHOLOGY NO; Potassium 3.6 mmol/L (3.5-5.1); Scan Indicated on CBC? Y/N NO; Sodium Level 138 mmol/L (136-145)
--- NOTE | 2020-07-02 16:55 | HP.PCM_ITS ---
Problem List (1) Disseminated herpes zoster Status: Acute (2) Rheumatoid arthritis Status: Chronic (3) Immunocompromised state due to drug therapy Status: Chronic History of Present Illness Date of Admission: 07/02/20 Mrs. Wright is a 74 year old WF with a patient of Dr. Jena Valentin with a past medical history of rheumatoid arthritis on immunosuppression with Orencia and methotrexate who began to have itching with a flat rash starting last Sunday. She states that it has progressively gotten worse and she is started to have some burning pain and sharp shooting pain in the areas of the rash. The rash started on her left side of her head near her left ear and has now spread to her scalp the back of her neck her anterior neck and chest and mildly on the right side of her face there is no ocular, oral or ear canal lesions noted at this time. She was recently taken off of her Orencia and methotrexate in order to receive the COVID-19 vaccine second dose. She had been initiated on Valtrex as an outpatient but with the progressively worsening rash and now the herpetic appearance Dr. Valentin talk to Dr. Mcintosh and he recommended inpatient treatment with IV acyclovir for 24 to 48 hours. She was directly admitted from home to [facility]. Past Medical History Past Medical History (Chronic Problems): Chronic Problems (Last Reviewed 04/04/18 @ 12:[address] Gerber Zaragoza MD) Rheumatoid arthritis (Chronic) Immunocompromised state due to drug therapy (Chronic) Medical History: Medical History (Last Reviewed 07/02/20 @ 17:[address] Lillian Suarez DO) Rheumatoid arthritis M06.9 Allergies cat dander Allergy (Verified 08/18/16 15:38) Unknown hydroxychloroquine [From Plaquenil] Adverse Reaction (Verified 07/02/20 14:57) photosensitivity niacin Adverse Reaction (Verified 07/02/20 14:57) Rash Penicillins Adverse Reaction (Verified 07/02/20 14:57) Rash Home Medications: Ambulatory Orders Medication Instructions Recorded Abatacept [Orencia] 125 mg SQ QWEEK 08/18/16 Calcium Carbonate/Vitamin D3 1 each PO BID 08/18/16 [Calcium 600-Vit D3 200 Tablet] Folic Acid 1 mg PO SUMOTUTHFRSA 08/18/16 Methotrexate 20 mg PO WE 08/18/16 traMADol [Ultram (G)] 1 - 2 tab PO Q6H PRN PRN 08/18/16 denosumab 60 mg/mL subcutaneous 60 mg SC [id number] 04/03/18 syringe Ezetimibe 10 mg PO DAILY 07/02/20 Folic Acid 2 mg PO WE 07/02/20 Surgical History: Surgical History (Last Reviewed 07/02/20 @ 17:[address] 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 Lillian Suarez DO) Mother Hypertension Sister Lupus History Items: No pertinent history Paternal Family History: Family History (Last Reviewed 07/02/20 @ 17:[address] Lillian Suarez DO) Mother Hypertension Sister Lupus Review of Systems Constitutional: Denies: Anorexia, Chills, Fever, Night Sweats, Malaise, Weakness, Weight Change, Fatigue Eyes: Denies: Blurred vision, Conjunctivae Inflammation, Drainage, Eyelid Inflammation, Pain, Redness, Vision Change HEENT: Denies: Difficulty Hearing, Difficulty Swallowing, Head Aches, Nasal bleeding, Nasal Congestion, Post Nasal Drip, Sinus Congestion, Sinus Drainage, Sore Throat, Visual Changes Cardiovascular: Denies: Chest Pain, Chest Pressure, Chest Tightness, Edema Respiratory: Denies: Cough, Shortness of Breath, Shortness of breath at rest, Shortness of breath upon exertion, Sputum production, Wheezing Gastrointestinal: Denies: Abdominal Pain, Constipation, Diarrhea, Nausea, Vomiting Genitourinary: Denies: Dysuria, Frequency Musculoskeletal: Reports: Joint Pain, Joint stiffness, Joint swelling, Joint Tenderness. Denies: Back Pain, Hand Pain, Neck Pain Skin: Reports: Lesions, Pruritis, Rash, Skin Changes. Denies: Dryness, Jaundice, Wounds Neurological: Denies: Balance problems, Blurred vision, Double vision, Confusion, Focal weakness, Headaches, Numbness, Tingling Psychiatric: Denies: Anxiety, Depression Endocrine: Denies: Change in Body Habitus, Heat/ Cold Intolerance, Polydipsia, Polyuria Hematologic/ Lymphatic: Denies: Adenopathy, Anemia, Easy Bruising, Easy Bleeding, Petechiae, Purpura VTE Information - Inpt Only VTE Present on Admission: No VTE Mechan Device Prophylaxis: SCD's VTE Pharm Prophylaxis ordered?: No Reason prophylaxis not ordered:: Treatment Not Indicated - Early ambulation - Physical Exam Vitals/I&O's: Vital Signs Temp Pulse Resp BP Pulse Ox 98.2 F 88 16 143/84 H 97 07/02/20 14:17 07/02/20 14:17 07/02/20 14:17 07/02/20 14:17 07/02/20 14:17 Oxygen Delivery Method Room Air Weight: 54.1 kg Body Mass Index (BMI) 21.8 General: Alert, Oriented x3, Cooperative, No apparent distress, Well developed, Well nourished, - - Older white female lying in bed appears well, at bedside, patient appears younger than stated age HEENT: Atraumatic, PERRLA, EOMI, Normocephalic, EAC Clear Oral: Moist Mucosa, No Gingival or Mucosal Lesions/ Ulcerations Neck: Supple, Trachea Midline Lungs: Clear to auscultation, Normal air movement, No rhonchi, No wheeze, No rales Cardiovascular: Regular rate, Regular Rhythm, Normal S1, Normal S2, No murmurs, No Ectopic Activity, No rub noted, No Gallop Abdomen: Bowel Sounds Present, Soft, Non Tender, Non-Distended, No Hepato- splenomegaly Extremities: No clubbing, No cyanosis, No edema, Capillary Refill Less than 3 Seconds, Peripheral Pulses Normal Skin: No breakdown, Rash Present - Maculopapular rash with pustules noted on bilateral sides of neck, upper back, anterior neck, right face and chest Musculoskeletal: No Muscle Wasting, Arthritic Changes Neurological: Cranial nerves II-XII grossly intact, Neuro grossly intact Psych/Mental Status: Normal Affect, Appropriate Laboratory Results 07/02/20 16:15: WBC 3.7 L, RBC 5.07, Hgb 15.4 H, Hct 46.8, MCV 92.3, MCH 30.4, MCHC 32.9, RDW Std Deviation 42.3, RDW Coeff of Dejah 12.5, Plt Count 196, MPV 10.9 07/02/20 16:15: Sodium 138, Potassium 3.6, Chloride 104, Carbon Dioxide 30.0, Anion Gap 4 L, BUN 13, Creatinine 0.79, Estim Creat Clear Calc 40.22, Est GFR (MDRD) Af Amer 92, Est GFR (MDRD) Non-Af 76, BUN/Creatinine Ratio 16.5, Glucose 88, Calcium 9.0 Current Medications Acetaminophen (Acetaminophen 325 Mg Tablet) 650 mg PO Q6H PRN PRN PRN Reason: Pain Score 1-10/Temp > 100.7 F Al Hydroxide/Mg Hydroxide (Mag Hydrox/Al Hydrox/Simeth 30 Ml Udc) 30 ml PO Q6H PRN PRN PRN Reason: Gastric Burning Ezetimibe (Ezetimibe 10 Mg Tablet) 10 mg PO DAILY ADRIENNE Folic Acid (Folic Acid 1 Mg Tablet) 1 mg PO SuMoTuThFrSa@0800 ADRIENNE Gabapentin (Gabapentin 300 Mg Capsule) 300 mg PO TIDCM ADRIENNE Sodium Chloride () 250 mls @ 15 mls/hr IV .[id number] PRN PRN Reason: Saline Flush Sodium Chloride () 250 mls @ 15 mls/hr IV .[id number] PRN PRN Reason: Additional IVPB Infusion Acyclovir Sodium 540 mg/ (Dextrose) 260.8 mls @ 260.8 mls/hr IV Q8 ADRIENNE Melatonin (Melatonin 3 Mg Tablet) 3 mg PO QHS PRN PRN PRN Reason: INSOMNIA Ondansetron HCl (Ondansetron 4 Mg/2 Ml Vial) 4 mg IV Q8H PRN PRN PRN Reason: NAUSEA/VOMITING Oxycodone HCl (Oxycodone 5 Mg Tablet) 5 mg PO Q4H PRN PRN PRN Reason: Pain Score 4-10 Senna/Docusate Sodium (Senna/Docusate Sodium 1 Tablet) 2 tablet PO BID PRN PRN PRN Reason: Constipation Sodium Chloride (0.9% Saline Lock 10 Ml Syringe) 10 - 40 ml IV UD PRN PRN Reason: SALINE FLUSH Assessment/Plan All Active Problems (Last Reviewed 04/04/18 @ 12:[address] Gerber Zaragoza MD) Disseminated herpes zoster (Acute) Disseminated herpes zoster in an immunocompromised patient -Hold Orencia and methotrexate -IV acyclovir 10 mg/kg ideal body weight every 8 hours -Would continue IV acyclovir until she stops having new breakouts with lesions -Would treat with a 10-day course -Gabapentin for nerve pain -As needed oxycodone is available -As needed bowel regimen -Daily lab -Consult infectious disease Rheumatoid arthritis -Hold Orencia -Hold methotrexate -Continue folic acid DVT prophylaxis -Early mobility CODE STATUS -Full code Inpatient E&M: 51941 Init Hosp L2
[2020-07-02 18:13] VITALS: BP 161/84; PULSE 95; RESP 18; TEMP 37.2; O2SAT 95
[2020-07-02] MEDS: Folic Acid 1 MG Tablet PO (18:16)
[2020-07-02] MEDS: Ezetimibe 10 MG Tablet PO (18:16)
[2020-07-02] MEDS: Acetaminophen 325 MG Tablet 650 MG PO (18:16)
[2020-07-02] MEDS: Gabapentin 300 MG Capsule PO (18:16)
[2020-07-02 20:15] VITALS: BP 116/78; PULSE 76; RESP 16; TEMP 36.7; O2SAT 97
[2020-07-02] MEDS: oxyCODONE 5 MG Tablet PO (22:50)
[2020-07-03] VITALS (9 sets, daily range): BP systolic 116–157; BP diastolic 62–90; PULSE 66–86; RESP 14–16; TEMP 36.4–36.9; O2SAT 96–100
[2020-07-03] MEDS: Acetaminophen 325 MG Tablet 650 MG PO ×3 (06:24→18:24)
--- NOTE | 2020-07-03 07:33 | PCS.PANDOC ---
PANDEMIC DOCUMENTATION INITIATED: Date: 07/02/20 Time: 7349
[2020-07-03 07:53] LABS: Absolute Lymphocyte Count 1.55 X10^3/uL (0.83-4.51); Absolute Neutrophil Count 0.9 X10^3/uL (2.0-7.7); Basophil# 0.05 X10^3/uL; Basophil% 1.6 % (0-1); Eosinophil# 0.15 X10^3/uL; Eosinophils% 4.9 % (0-5); Hematocrit 45.8 % (37-47); Hemoglobin 15.2 g/dL (12.0-15.0); Lymphocyte # 1.55 X10^3/ul (4.0); Lymphocyte % 50.7 % (19-41); Mean Corp Hgb Conc 33.2 g/dL (32-36); Mean Corpuscular Hgb 30.2 pg (27.0-32.0); Mean Corpuscular Volume 91.1 fL (81-99); Mean Platelet Vol. 11.1 fl (6.2-12.0); Monocyte# 0.37 X10^3/uL; Monocyte% 12.1 % (0-10); NRBC Flagged by Analyzer 0 % (0-5); Neutrophil # 0.94 X10^3/uL (2.7-7.7); Neutrophil % 30.7 % (47-70); POSITIVE DIFFERENTIAL YES; Platelet Count 178 K/mm3 (150-450); RBC Distribution Width CV 12.4 % (11.6-14.6); RBC Distribution Width SD 40.6 fl (35.1-43.9); Red Blood Count 5.03 M/mm3 (4.2-5.4); White Blood Count 3.1 K/mm3 (4.4-11.0)
[2020-07-03 08:02] LABS: Differential Indicated SCAN CRITERIA MET
[2020-07-03] MEDS: Gabapentin 300 MG Capsule PO ×3 (08:09→16:27)
[2020-07-03] MEDS: oxyCODONE 5 MG Tablet PO ×4 (08:09→20:28)
[2020-07-03] MEDS: Folic Acid 1 MG Tablet PO (08:09)
[2020-07-03] MEDS: 0.9% Saline Lock 10 ML Syringe IV ×2 (08:10→14:02)
[2020-07-03 08:19] LABS: AST(SGOT) 21 U/L (15-37); Alanine Aminotransfer ALT/SGPT 24 U/L (13-56); Albumin, Serum 3.3 g/dL (3.2-5.0); Alkaline Phosphatase 52 U/L (45-117); Anion Gap 5 (5-15); BUN 10 mg/dL (7-18); Calcium,Total 8.7 mg/dL (8.5-10.1); Chloride 106 mmol/L (98-107); Creatinine, Serum 0.77 mg/dL (0.55-1.02); EST Glomerular Filtration Rate 78 mL/min (>60); Est Glom Filt Rate - Afr Amer 95 mL/min (>60); Estimated Creatinine Clearance 40.22 ml/min; Globulin 3.4 g/dL (2.2-4.2); Glucose 90 mg/dL (74-106); Magnesium 2.5 mg/dL (1.6-2.6); Phosphorus 2.7 mg/dL (2.5-4.9); Potassium 4.3 mmol/L (3.5-5.1); Protein, Total 6.7 g/dL (6.4-8.2); Sodium Level 141 mmol/L (136-145)
[2020-07-03] MEDS: Ezetimibe 10 MG Tablet PO (10:47)
--- NOTE | 2020-07-03 15:00 | PCM.PN.HOSP ---
Patient Problems: Active and Suspected Problems (Last Reviewed 07/02/20 @ 17:[address] Lillian Suarez, DO) Disseminated herpes zoster (Acute) Subjective: Still with rash over her right neck but also pain around her left ear. Patient complains of headache. She states that she gets migraines fairly commonly but this feels different than her migraine that she has pain in her neck. Denies any visual or hearing issues. Vitals/I&O's: Vital Signs Temp Pulse Resp BP Pulse Ox 36.9 C 76 14 132/62 H 96 07/03/20 14:10 07/03/20 14:10 07/03/20 14:10 07/03/20 14:10 07/03/20 14:10 Oxygen Delivery Method Room Air Weight: 54.1 kg Body Mass Index (BMI) 21.8 Intake and Output for Last 24 Hours 07/01/20 07/02/20 07/03/20 23:59 23:59 23:59 Intake Total 1040 / 1040 1281.6 / 1281.6 Balance 1040 / 1040 1281.6 / 1281.6 General: Alert, No apparent distress, Well developed, Well nourished HEENT: Atraumatic, Normocephalic, - - Tympanic membranes and ear canals are without rash or vesicles. Oral: Moist Mucosa, No Gingival or Mucosal Lesions/ Ulcerations Neck: No Nodes, Thyroid Normal Size and Texture Skin: - - Raised macular rash primarily involving the patient's right side of her neck but also extending to her anterior chest as well as slightly posteriorly in her back does have a small area of vesicular formation in the medial portion of her neck. Does also have scattered lesions in her scalp on the lef Musculoskeletal: No Tenderness to Palpation of Joints or Extremities, No Muscle Wasting Psych/Mental Status: Normal Affect, Appropriate Laboratory Results 07/02/20 16:15: WBC 3.7 L, RBC 5.07, Hgb 15.4 H, Hct 46.8, MCV 92.3, MCH 30.4, MCHC 32.9, RDW Std Deviation 42.3, RDW Coeff of Dejah 12.5, Plt Count 196, MPV 10.9 07/02/20 16:15: Sodium 138, Potassium 3.6, Chloride 104, Carbon Dioxide 30.0, Anion Gap 4 L, BUN 13, Creatinine 0.79, Estim Creat Clear Calc 40.22, Est GFR (MDRD) Af Amer 92, Est GFR (MDRD) Non-Af 76, BUN/Creatinine Ratio 16.5, Glucose 88, Calcium 9.0 07/03/20 06:29: WBC 3.1 L, RBC 5.03, Hgb 15.2 H, Hct 45.8, MCV 91.1, MCH 30.2, MCHC 33.2, RDW Std Deviation 40.6, RDW Coeff of Dejah 12.4, Plt Count 178, MPV 11.1, Immature Gran % (Auto) 0.000, Neut % (Auto) 30.7 L, Lymph % (Auto) 50.7 H, [place] % (Auto) 12.1 H, Eos % (Auto) 4.9, Baso % (Auto) 1.6 H, Absolute Neuts (auto) 0.9 L, Absolute Lymphs (auto) 1.55, Nucleated RBC % 0 07/03/20 06:29: Sodium 141, Potassium 4.3, Chloride 106, Carbon Dioxide 30.0, Anion Gap 5, BUN 10, Creatinine 0.77, Estim Creat Clear Calc 40.22, Est GFR (MDRD) Af Amer 95, Est GFR (MDRD) Non-Af 78, BUN/Creatinine Ratio 13.0, Glucose 90, Calcium 8.7, Phosphorus 2.7, Magnesium 2.5, Total Bilirubin 0.50, AST 21, ALT 24, Alkaline Phosphatase 52, Total Protein 6.7, Albumin 3.3, Globulin 3.4, Albumin/Globulin Ratio 1.0 Current Medications Acetaminophen (Acetaminophen 325 Mg Tablet) 650 mg PO Q6H PRN PRN PRN Reason: Pain Score 1-10/Temp > 100.7 F Last Admin: 07/03/20 12:24 Dose: 650 mg Documented by: Al Hydroxide/Mg Hydroxide (Mag Hydrox/Al Hydrox/Simeth 30 Ml Udc) 30 ml PO Q6H PRN PRN PRN Reason: Gastric Burning Ezetimibe (Ezetimibe 10 Mg Tablet) 10 mg PO DAILY [facility] Last Admin: 07/03/20 10:47 Dose: 10 mg Documented by: Folic Acid (Folic Acid 1 Mg Tablet) 1 mg PO SullyTuThFrSa@0800 [facility] Last Admin: 07/03/20 08:09 Dose: 1 mg Documented by: Gabapentin (Gabapentin 300 Mg Capsule) 300 mg PO TIDCM [facility] Last Admin: 07/03/20 12:27 Dose: 300 mg Documented by: Sodium Chloride () 250 mls @ 15 mls/hr IV .[id number] PRN PRN Reason: Saline Flush Sodium Chloride () 250 mls @ 15 mls/hr IV .[id number] PRN PRN Reason: Additional IVPB Infusion Acyclovir Sodium 540 mg/ (Dextrose) 260.8 mls @ 260.8 mls/hr IV Q8 ADRIENNE Last Admin: 07/03/20 14:02 Dose: 260 mls/hr Documented by: Melatonin (Melatonin 3 Mg Tablet) 3 mg PO QHS PRN PRN PRN Reason: INSOMNIA Ondansetron HCl (Ondansetron 4 Mg/2 Ml Vial) 4 mg IV Q8H PRN PRN PRN Reason: NAUSEA/VOMITING Oxycodone HCl (Oxycodone 5 Mg Tablet) 5 mg PO Q4H PRN PRN PRN Reason: Pain Score 4-10 Last Admin: 07/03/20 12:23 Dose: 5 mg Documented by: Senna/Docusate Sodium (Senna/Docusate Sodium 1 Tablet) 2 tablet PO BID PRN PRN PRN Reason: Constipation Sodium Chloride (0.9% Saline Lock 10 Ml Syringe) 10 - 40 ml IV UD PRN PRN Reason: SALINE FLUSH Last Admin: 07/03/20 14:02 Dose: 10 ml Documented by: STROKE Vital Signs/Narrative: Vital Signs Temp Pulse Resp BP Pulse Ox 07/03/20 14:10 36.9 C 76 14 132/62 H 96 Medical Necessity - Tobacco Use Smoking Status: Never smoker Assessment/Plan All Active Problems (Last Reviewed 07/02/20 @ 17:[address] Lillian Suarez, DO) Disseminated herpes zoster (Acute) 1. Disseminated herpes zoster: No ophthalmologic nor otologic manifestations at this time. Therefore no concern for Ry Matias syndrome at this time. Patient has been initiated on acyclovir at 10 mg/kg every 8 hours. Plan is to continue with acyclovir and monitor lab work at this time. Explained to the patient the plan is to just monitor make sure that she is overall improving prior to discharge and then she can continue with her oral valacyclovir as outpatient. Patient only taken 1 or 2 doses prior to coming into the hospital. I told the patient I felt that it was likely not enough time for the antiviral to work when she had presented to the hospital and not a treatment failure. Patient also on gabapentin to help with pain I received a phone call from Dr. Crane, of ENT, who stated that he was a personal friend of the patient and asked about steroids. I did speak with Dr. Zamora, of infectious disease, and explained the patient's case disseminated herpes zoster without eye or ear involvement. He stated that the patient should absolutely not be on steroids. 2. Rheumatoid arthritis Likely complicating factor in her disseminated herpes zoster given the immunosuppression Orencia and methotrexate held 3. VTE prophylaxis: Patient be moderate risk and would add enoxaparin to her regimen at this time. I received a phone call earlier this morning from Dr. Wright, the patient's , who was upset because he felt that the night nurse was rude to the patient and was upset that patient's acyclovir was not given until after 11 PM last night. I reviewed the orders with him the fact that Dr. Suarez put in orders for acyclovir at 1600 on the fifth. It had not been given until after 2300 that day. I told him that I would look into it. I did discuss this with Dr. Suarez and did it. That Dr. Suarez was unaware that the medication with default to the next available time slot. Dr. Suarez works here as needed and other systems defaults to the time the orders put in for the medication to be administered and I was not aware that the system did not operate that way. I did relay this to the patient and patient was fine after I described that to her. Also discussed with the patient's daughter, Dr. Turner, in the patient's room. Greater than 60 minutes of which greater than 50% time was counseling the patient, the patient's daughter and the patient's about the treatment and the events that happened the night before. Also discussing with infectious disease in regards to the's patient's care regards to acyclovir but also addressing the concern that Dr. Butler and Dr. Turner had about steroids. Inpatient E&M: 52032 [facility] Hosp L3
[2020-07-04] MEDS: oxyCODONE 5 MG Tablet PO ×2 (00:59→05:40)
[2020-07-04] MEDS: Acetaminophen 325 MG Tablet 650 MG PO ×4 (01:00→20:38)
[2020-07-04 01:03] VITALS: BP 148/81; PULSE 87; RESP 16; TEMP 36.9; O2SAT 97
[2020-07-04] MEDS: 0.9% Saline Lock 10 ML Syringe IV ×4 (05:43→16:27)
[2020-07-04 05:44] VITALS: BP 138/89; PULSE 80; RESP 16; TEMP 37; O2SAT 98
[2020-07-04 07:24] LABS: Absolute Lymphocyte Count 1.63 X10^3/uL (0.83-4.51); Basophil# 0.04 X10^3/uL; Basophil% 1.3 % (0-1); Eosinophil# 0.14 X10^3/uL; Eosinophils% 4.6 % (0-5); Hematocrit 46.1 % (37-47); Hemoglobin 15.1 g/dL (12.0-15.0); Lymphocyte # 1.63 X10^3/ul (4.0); Lymphocyte % 53.4 % (19-41); Mean Corp Hgb Conc 32.8 g/dL (32-36); Mean Corpuscular Volume 91.7 fL (81-99); Mean Platelet Vol. 10.9 fl (6.2-12.0); Monocyte# 0.27 X10^3/uL; Monocyte% 8.9 % (0-10); NRBC Flagged by Analyzer 0 % (0-5); Neutrophil # 0.97 X10^3/uL (2.7-7.7); Neutrophil % 31.8 % (47-70); POSITIVE DIFFERENTIAL YES; Platelet Count 152 K/mm3 (150-450); RBC Distribution Width CV 12.6 % (11.6-14.6); RBC Distribution Width SD 41.1 fl (35.1-43.9); Red Blood Count 5.03 M/mm3 (4.2-5.4); White Blood Count 3.1 K/mm3 (4.4-11.0)
[2020-07-04 07:28] LABS: Differential Indicated SCAN CRITERIA MET
[2020-07-04] MEDS: Gabapentin 300 MG Capsule PO ×3 (07:43→16:25)
[2020-07-04] MEDS: Folic Acid 1 MG Tablet PO (07:43)
[2020-07-04 07:55] LABS: Anion Gap 7 (5-15); BUN 10 mg/dL (7-18); BUN/Creat Ratio 13.2 RATIO (10-20); Calcium,Total 8.3 mg/dL (8.5-10.1); Chloride 105 mmol/L (98-107); Creatinine, Serum 0.76 mg/dL (0.55-1.02); EST Glomerular Filtration Rate 80 mL/min (>60); Est Glom Filt Rate - Afr Amer 97 mL/min (>60); Estimated Creatinine Clearance 40.22 ml/min; Glucose 134 mg/dL (74-106); Potassium 3.4 mmol/L (3.5-5.1); Sodium Level 137 mmol/L (136-145)
[2020-07-04 09:55] VITALS: BP 117/83; PULSE 95; RESP 16; TEMP 37.1; O2SAT 98
[2020-07-04] MEDS: Ketorolac 15 MG/ML Vial IV ×3 (09:55→22:25)
[2020-07-04] MEDS: Ezetimibe 10 MG Tablet PO (09:55)
--- NOTE | 2020-07-04 13:50 | PN_ITS ---
Patient Problems: Active and Suspected Problems (Last Reviewed 07/02/20 @ 17:[address] Lillian Suarez, DO) Disseminated herpes zoster (Acute) Subjective: Still with pain around her left ear but also with profound headache in the frontal part of her head. Overall she feels that her rash is lessened. Vitals/I&O's: Vital Signs Temp Pulse Resp BP Pulse Ox 37.1 C 95 16 117/83 H 98 07/04/20 09:55 07/04/20 09:55 07/04/20 09:55 07/04/20 09:55 07/04/20 09:55 Oxygen Delivery Method Room Air Weight: 54.1 kg Body Mass Index (BMI) 21.8 Intake and Output for Last 24 Hours 07/02/20 07/03/20 07/04/20 23:59 23:59 23:59 Intake Total 1040 / 1040 2243.2 / 2443.2 1500.8 / 1500.8 Balance 1040 / 1040 2243.2 / 2443.2 1500.8 / 1500.8 General: Alert, No apparent distress HEENT: Atraumatic, Normocephalic Skin: - - Decreased erythema of the rash involving her right side of her neck and right upper chest and upper back. Also decreased erythema lesions around her left ear. Lesions appear to be scabbing over. No obvious vesicles. Psych/Mental Status: Normal Affect, Appropriate Laboratory Results 07/04/20 06:48: WBC 3.1 L, RBC 5.03, Hgb 15.1 H, Hct 46.1, MCV 91.7, MCH 30.0, MCHC 32.8, RDW Std Deviation 41.1, RDW Coeff of Dejah 12.6, Plt Count 152, MPV 10.9, Immature Gran % (Auto) 0.000, Neut % (Auto) 31.8 L, Lymph % (Auto) 53.4 H, [place] % (Auto) 8.9, Eos % (Auto) 4.6, Baso % (Auto) 1.3 H, Absolute Neuts (auto) 1.0 L, Absolute Lymphs (auto) 1.63, Nucleated RBC % 0 07/04/20 06:48: Sodium 137, Potassium 3.4 L, Chloride 105, Carbon Dioxide 25.0, Anion Gap 7, BUN 10, Creatinine 0.76, Estim Creat Clear Calc 40.22, Est GFR (MDRD) Af Amer 97, Est GFR (MDRD) Non-Af 80, BUN/Creatinine Ratio 13.2, Glucose 134 H, Calcium 8.3 L Current Medications Acetaminophen (Acetaminophen 325 Mg Tablet) 650 mg PO Q6H PRN PRN PRN Reason: Pain Score 1-10/Temp > 100.7 F Last Admin: 07/04/20 13:46 Dose: 650 mg Documented by: Al Hydroxide/Mg Hydroxide (Mag Hydrox/Al Hydrox/Simeth 30 Ml Udc) 30 ml PO Q6H PRN PRN PRN Reason: Gastric Burning Ezetimibe (Ezetimibe 10 Mg Tablet) 10 mg PO DAILY [facility] Last Admin: 07/04/20 09:55 Dose: 10 mg Documented by: Folic Acid (Folic Acid 1 Mg Tablet) 1 mg PO SuMoTuThFrSa@0800 [facility] Last Admin: 07/04/20 07:43 Dose: 1 mg Documented by: Gabapentin (Gabapentin 300 Mg Capsule) 300 mg PO TIDCM [facility] Last Admin: 07/04/20 11:48 Dose: 300 mg Documented by: Sodium Chloride () 250 mls @ 15 mls/hr IV .[id number] PRN PRN Reason: Saline Flush Sodium Chloride () 250 mls @ 15 mls/hr IV .[id number] PRN PRN Reason: Additional IVPB Infusion Acyclovir Sodium 540 mg/ (Dextrose) 260.8 mls @ 260.8 mls/hr IV Q8 [facility] Last Admin: 07/04/20 13:48 Dose: 260 mls/hr Documented by: Ketorolac Tromethamine (Ketorolac 15 Mg/Ml Vial) 15 mg IV Q6H PRN PRN PRN Reason: pain, headache Stop: 07/09/20 09:28 Last Admin: 07/04/20 09:55 Dose: 15 mg Documented by: Melatonin (Melatonin 3 Mg Tablet) 3 mg PO QHS PRN PRN PRN Reason: INSOMNIA Ondansetron HCl (Ondansetron 4 Mg/2 Ml Vial) 4 mg IV Q8H PRN PRN PRN Reason: NAUSEA/VOMITING Oxycodone HCl (Oxycodone 5 Mg Tablet) 5 mg PO Q4H PRN PRN PRN Reason: Pain Score 6-10 Last Admin: 07/04/20 05:40 Dose: 5 mg Documented by: Rizatriptan Benzoate (Rizatriptan Benzoate 10 Mg Tablet) 10 mg PO Q2H PRN PRN Reason: MIGRAINE SYMPTOMS Senna/Docusate Sodium (Senna/Docusate Sodium 1 Tablet) 2 tablet PO BID PRN PRN PRN Reason: Constipation Sodium Chloride (0.9% Saline Lock 10 Ml Syringe) 10 - 40 ml IV UD PRN PRN Reason: SALINE FLUSH Last Admin: 07/04/20 13:47 Dose: 10 ml Documented by: STROKE Vital Signs/Narrative: Vital Signs Temp Pulse Resp BP Pulse Ox 07/04/20 09:55 37.1 C 95 16 117/83 H 98 Medical Necessity - Tobacco Use Smoking Status: Never smoker Assessment/Plan All Active Problems (Last Reviewed 07/02/20 @ 17:[address] Lillian Suaerz, DO) Disseminated herpes zoster (Acute) 1. Disseminated herpes zoster: * Improving * No ophthalmologic nor otologic manifestations at this time. Therefore no concern for Ry Matias syndrome at this time. * Patient has been initiated on acyclovir at 10 mg/kg every 8 hours. Plan is to continue with acyclovir and monitor lab work at this time. Explained to the patient the plan is to just monitor make sure that she is overall improving prior to discharge and then she can continue with her oral valacyclovir as outpatient. Patient only taken 1 or 2 doses prior to coming into the hospital. I told the patient I felt that it was likely not enough time for the antiviral to work when she had presented to the hospital and not a t reatment failure. * Patient also on gabapentin to help with pain * 07/03: I received a phone call from Dr. Crane, of ENT, who stated that he was a personal friend of the patient and asked about steroids. I did speak with Dr. Zamora, of infectious disease, and explained the patient's case disseminated herpes zoster without eye or ear involvement. He stated that the patient should absolutely not be on steroids. * 07/04: Improved lesions overall. Continue with acyclovir. 2. Migraine * Patient complaining primarily of pain in her forehead though there are no obvious parasellar lesions no rash involving her forehead. I feel that this is a migraine likely exacerbated by the stress of the zoster, but not a direct cause. * As needed ketorolac, rizatriptan * Consider metoclopramide and diphenhydramine, magnesium sulfate and even DHE if refractory. No steroids given the disseminated zoster. 3. rheumatoid arthritis * Likely complicating factor in her disseminated herpes zoster given the immunosuppression * Orencia and methotrexate held 4. VTE prophylaxis: Patient be moderate risk and would add enoxaparin to her regimen at this time. Greater than 25 minutes which greater than 50% of time was discussed with patient about the improvements of the disseminated zoster but also about her migraine and the treatment for that. Inpatient E&M: 57474 Subs Hosp L2
[2020-07-04 15:55] VITALS: BP 139/81; PULSE 77; RESP 14; TEMP 36.8; O2SAT 100
[2020-07-04 21:55] VITALS: BP 149/87; PULSE 69; RESP 16; TEMP 37.1; O2SAT 98
[2020-07-05 03:55] VITALS: BP 131/80; PULSE 65; RESP 14; TEMP 37.1; O2SAT 97
[2020-07-05] MEDS: Ketorolac 15 MG/ML Vial IV ×2 (05:41→14:09)
[2020-07-05 06:32] LABS: Absolute Neutrophil Count 1.3 X10^3/uL (2.0-7.7); Basophil# 0.04 X10^3/uL; Eosinophils% 4.8 % (0-5); Hematocrit 44.1 % (37-47); Hemoglobin 14.8 g/dL (12.0-15.0); Lymphocyte % 55.6 % (19-41); Mean Corp Hgb Conc 33.6 g/dL (32-36); Mean Corpuscular Hgb 30.5 pg (27.0-32.0); Mean Corpuscular Volume 90.9 fL (81-99); Mean Platelet Vol. 10.9 fl (6.2-12.0); Monocyte# 0.27 X10^3/uL; Monocyte% 6.5 % (0-10); NRBC Flagged by Analyzer 0 % (0-5); Neutrophil # 1.33 X10^3/uL (2.7-7.7); Neutrophil % 32.1 % (47-70); Platelet Count 182 K/mm3 (150-450); RBC Distribution Width CV 12.3 % (11.6-14.6); RBC Distribution Width SD 40.3 fl (35.1-43.9); Red Blood Count 4.85 M/mm3 (4.2-5.4); White Blood Count 4.1 K/mm3 (4.4-11.0)
[2020-07-05 07:07] LABS: Anion Gap 5 (5-15); BUN 12 mg/dL (7-18); BUN/Creat Ratio 16.2 RATIO (10-20); Calcium,Total 8.9 mg/dL (8.5-10.1); Chloride 107 mmol/L (98-107); Creatinine, Serum 0.74 mg/dL (0.55-1.02); EST Glomerular Filtration Rate 82 mL/min (>60); Est Glom Filt Rate - Afr Amer 99 mL/min (>60); Estimated Creatinine Clearance 40.22 ml/min; Glucose 93 mg/dL (74-106); Potassium 4.1 mmol/L (3.5-5.1); Sodium Level 140 mmol/L (136-145)
--- NOTE | 2020-07-05 07:53 | PCM.PN.HOSP ---
Patient Problems: Active and Suspected Problems (Last Reviewed 07/02/20 @ 17:[address] Lillian Suarez, DO) Disseminated herpes zoster (Acute) Vitals/I&O's: Vital Signs Temp Pulse Resp BP Pulse Ox 98.7 F 65 14 131/80 H 97 07/05/20 03:55 07/05/20 03:55 07/05/20 03:55 07/05/20 03:55 07/05/20 03:55 Oxygen Delivery Method Room Air Weight: 119 lb 4.321 oz Body Mass Index (BMI) 21.8 Intake and Output for Last 24 Hours 07/03/20 07/04/20 07/05/20 23:59 23:59 23:59 Intake Total 2243.2 / 2443.2 1761.6 / 2061.6 860.8 / 860.8 Balance 2243.2 / 2443.2 1761.6 / 2061.6 860.8 / 860.8 Laboratory Results 07/04/20 06:48: Sodium 137, Potassium 3.4 L, Chloride 105, Carbon Dioxide 25.0, Anion Gap 7, BUN 10, Creatinine 0.76, Estim Creat Clear Calc 40.22, Est GFR (MDRD) Af Amer 97, Est GFR (MDRD) Non-Af 80, BUN/Creatinine Ratio 13.2, Glucose 134 H, Calcium 8.3 L 07/05/20 05:30: WBC 4.1 L, RBC 4.85, Hgb 14.8, Hct 44.1, MCV 90.9, MCH 30.5, MCHC 33.6, RDW Std Deviation 40.3, RDW Coeff of Dejah 12.3, Plt Count 182, MPV 10.9, Immature Gran % (Auto) 0.000, Neut % (Auto) 32.1 L, Lymph % (Auto) 55.6 H, [place] % (Auto) 6.5, Eos % (Auto) 4.8, Baso % (Auto) 1.0, Absolute Neuts (auto) 1.3 L, Absolute Lymphs (auto) 2.30, Nucleated RBC % 0 07/05/20 05:30: Sodium 140, Potassium 4.1, Chloride 107, Carbon Dioxide 28.0, Anion Gap 5, BUN 12, Creatinine 0.74, Estim Creat Clear Calc 40.22, Est GFR (MDRD) Af Amer 99, Est GFR (MDRD) Non-Af 82, BUN/Creatinine Ratio 16.2, Glucose 93, Calcium 8.9 Current Medications Acetaminophen (Acetaminophen 325 Mg Tablet) 650 mg PO Q6H PRN PRN PRN Reason: Pain Score 1-10/Temp > 100.7 F Last Admin: 07/04/20 20:38 Dose: 650 mg Documented by: Al Hydroxide/Mg Hydroxide (Mag Hydrox/Al Hydrox/Simeth 30 Ml Udc) 30 ml PO Q6H PRN PRN PRN Reason: Gastric Burning Ezetimibe (Ezetimibe 10 Mg Tablet) 10 mg PO DAILY [facility] Last Admin: 07/04/20 09:55 Dose: 10 mg Documented by: Folic Acid (Folic Acid 1 Mg Tablet) 1 mg PO [id number]@0800 [facility] Last Admin: 07/04/20 07:43 Dose: 1 mg Documented by: Gabapentin (Gabapentin 300 Mg Capsule) 300 mg PO TIDCM [facility] Last Admin: 07/04/20 16:25 Dose: 300 mg Documented by: Sodium Chloride () 250 mls @ 15 mls/hr IV .[id number] PRN PRN Reason: Saline Flush Sodium Chloride () 250 mls @ 15 mls/hr IV .[id number] PRN PRN Reason: Additional IVPB Infusion Acyclovir Sodium 540 mg/ (Dextrose) 260.8 mls @ 260.8 mls/hr IV Q8 [facility] Last Admin: 07/05/20 05:40 Dose: 260 mls/hr Documented by: Ketorolac Tromethamine (Ketorolac 15 Mg/Ml Vial) 15 mg IV Q6H PRN PRN PRN Reason: pain, headache Stop: 07/09/20 09:28 Last Admin: 07/05/20 05:41 Dose: 15 mg Documented by: Melatonin (Melatonin 3 Mg Tablet) 3 mg PO QHS PRN PRN PRN Reason: INSOMNIA Ondansetron HCl (Ondansetron 4 Mg/2 Ml Vial) 4 mg IV Q8H PRN PRN PRN Reason: NAUSEA/VOMITING Oxycodone HCl (Oxycodone 5 Mg Tablet) 5 mg PO Q4H PRN PRN PRN Reason: Pain Score 6-10 Last Admin: 07/04/20 05:40 Dose: 5 mg Documented by: Rizatriptan Benzoate (Rizatriptan Benzoate 10 Mg Tablet) 10 mg PO Q2H PRN PRN Reason: MIGRAINE SYMPTOMS Senna/Docusate Sodium (Senna/Docusate Sodium 1 Tablet) 2 tablet PO BID PRN PRN PRN Reason: Constipation Sodium Chloride (0.9% Saline Lock 10 Ml Syringe) 10 - 40 ml IV UD PRN PRN Reason: SALINE FLUSH Last Admin: 07/04/20 16:27 Dose: 20 ml Documented by: STROKE Vital Signs/Narrative: Vital Signs Temp Pulse Resp BP Pulse Ox 07/05/20 03:55 98.7 F 65 14 131/80 H 97 Medical Necessity - Tobacco Use Smoking Status: Never smoker Assessment/Plan All Active Problems (Last Reviewed 07/02/20 @ 17:[address] Lillian Suarez DO) Disseminated herpes zoster (Acute)
[2020-07-05] MEDS: Acetaminophen 325 MG Tablet 650 MG PO (08:51)
[2020-07-05] MEDS: Folic Acid 1 MG Tablet PO (08:56)
[2020-07-05] MEDS: Ezetimibe 10 MG Tablet PO (08:56)
[2020-07-05] MEDS: Gabapentin 300 MG Capsule PO ×2 (08:56→14:08)
[2020-07-05] MEDS: Rizatriptan Benzoate 10 MG Tablet PO (08:58)
[2020-07-05 09:12] VITALS: BP 152/89; PULSE 81; RESP 12; TEMP 36.6; O2SAT 100
[2020-07-05] MEDS: tiZANidine HCl 2 MG Tablet PO (10:55)
--- NOTE | 2020-07-05 11:16 | CASEMGMT ---
ABIDA BOCANEGRA assessment: Phone interview with patient's as pt is currently in precautions for initial transition planning/care coordination assessment. ABDIA BOCANEGRA introduced self and role at [facility], answered pt's phone in room and would prefer to answer questions for pt at this time. Care providers, pharmacy, and demographics verified at this time. Presentation: Direct admission from Dr. Valentin's office for disseminated herpes zoster Admitting dx: Severe herpes zoster PCP: Barbie Specialists: Xander, rheumatology Preferred Pharmacy: [facility] Insurance: Doctor kinetic A/B, [employer] Prescription Benefit: Yes Living Will/HPOA: Per , pt has LW/HPOA and is aware that they are not on file at [facility] at this time. states that he is HPOA. LNOK: Paul Wright, Living Arrangements: Pt lives with in 2 story home and states no concerns at home at this time. Per , pt is independent with ADL's. Transportation: Pt/ drives and states no transportation concerns at this time. DME/HHC: Pt has a walker, BP cuff, and tub bench. states no need for any further DME at this time. Per , pt is improving. Pt has no hx of HHC or SNF in the past. states no concerns with pt going home at time of discharge. Pt is retired. Pt does not smoke cigarettes or drink ETOH. voice no further concerns/needs at this time. CM to follow for any further discharge planning/needs. Advised pt to ask for CM if any further questions/concerns/needs arise, voices understanding. Pt Goal: Home Plan[place] ABIDA BOCANEGRA
--- NOTE | 2020-07-05 14:40 | PCM.HP.ID ---
Problem List (1) Disseminated herpes zoster Status: Acute Reason for Consult: zoster Consulted by: Dr. Suarez History of Present Illness: The patient is a 74 year old F on immunosuppression for RA, presented 07/02 with 6 days of progressive bilateral neck pain, rash, blisters. Some L ear ache, some headache, no fever, no vision changes. Dx with zoster, PCP started valtrex 07/01, sx worsened. I spoke with Dr. Valentin on 07/02, recommend ED and admission for iv acyclovir. Now rash much improved, no new lesions, old lesions have scabbed or faded. Still some headache. Full ROS performed and neg except as noted above. - Medical History Past Medical History (Chronic Problems): Chronic Problems (Last Reviewed 07/02/20 @ 17:[address] Lillian Suarez, DO) Rheumatoid arthritis (Chronic) Immunocompromised state due to drug therapy (Chronic) Allergies/Adverse Reactions: Allergies cat dander Allergy (Verified 08/18/16 15:38) Unknown hydroxychloroquine [From Plaquenil] Adverse Reaction (Verified 07/02/20 14:57) photosensitivity niacin Adverse Reaction (Verified 07/02/20 14:57) Rash Penicillins Adverse Reaction (Verified 07/02/20 14:57) Rash Home Medications: Ambulatory Orders Medication Instructions Recorded Abatacept [Orencia] 125 mg SQ QWEEK 08/18/16 Calcium Carbonate/Vitamin D3 1 each PO BID 08/18/16 [Calcium 600-Vit D3 200 Tablet] Folic Acid 1 mg PO SUMOTUTHFRSA 08/18/16 Methotrexate 20 mg PO WE 08/18/16 traMADol [Ultram (G)] 1 - 2 tab PO Q6H PRN PRN 08/18/16 denosumab 60 mg/mL subcutaneous 60 mg SC [id number] 04/03/18 syringe Ezetimibe 10 mg PO DAILY 07/02/20 Folic Acid 2 mg PO WE 07/02/20 - Social History SMOKING STATUS:: Never smoker Vital Signs Temp Pulse Resp BP Pulse Ox 97.8 F 81 12 152/89 H 100 07/05/20 09:12 07/05/20 09:12 07/05/20 09:12 07/05/20 09:12 07/05/20 09:12 Oxygen Delivery Method Room Air Weight: 54.1 kg Body Mass Index (BMI) 21.8 Laboratory Tests Past 24 Hrs 07/05/20 07/05/20 05:30 05:30 WBC 4.1 L RBC 4.85 Hgb 14.8 Hct 44.1 MCV 90.9 MCH 30.5 MCHC 33.6 RDW Std Deviation 40.3 RDW Coeff of Dejah 12.3 Plt Count 182 MPV 10.9 Immature Gran % (Auto) 0.000 Neut % (Auto) 32.1 L Lymph % (Auto) 55.6 H [place] % (Auto) 6.5 Eos % (Auto) 4.8 Baso % (Auto) 1.0 Absolute Neuts (auto) 1.3 L Absolute Lymphs (auto) 2.30 Nucleated RBC % 0 Sodium 140 Potassium 4.1 Chloride 107 Carbon Dioxide 28.0 Anion Gap 5 BUN 12 Creatinine 0.74 Estim Creat Clear Calc 40.22 Est GFR (MDRD) Af Amer 99 Est GFR (MDRD) Non-Af 82 BUN/Creatinine Ratio 16.2 Glucose 93 Calcium 8.9 - Other Studies Radiology: [] reviewed Other Studies: [] Route of nutrition/ use of supplements: [] Nutritional Intake: [] IV Site: [] Davis Catheter: [] - Physical Exam General: Alert, Oriented x3, Cooperative, No apparent distress HEENT: Atraumatic, PERRLA, EOMI Neck: Supple, No Nodes Lungs: Clear to auscultation, Normal air movement Cardiovascular: Regular rate, Regular Rhythm Abdomen: Soft, Non Tender, Non-Distended Extremities: No edema Skin: Rash Present - fading/scabbed lesions on neck. None around ear or ear canal IV Site: Peripheral, without redness Musculoskeletal: No Tenderness to Palpation of Joints or Extremities Neurological: Cranial nerves II-XII grossly intact - Assessment/Plan Antibiotics: [] Assessment/Plan: [] Active and Suspected Problems (Last Reviewed 07/02/20 @ 17:[address] Lillian Suarez, DO) Disseminated herpes zoster (Acute) Disseminated zoster with immunosuppression - in airborne isolation, on iv acyclovir. Does not appear to have eye or ear involvement. L ear discomfort is a more general headache/pain on that side of face. Ok for discharge home today or tomorrow to complete 7 more days of valtrex 1gm tid; she has a bottle at home already from PCP. Will follow, thank you, d/w cyanide case hardener
[2020-07-05 14:56] VITALS: BP 104/59; PULSE 72; RESP 14; TEMP 36.6; O2SAT 97
--- NOTE | 2020-07-05 15:01 | DCINST_ITS ---
- Discharge Diagnoses Current Active Problems: Current Active and Chronic Problems (Last Reviewed 07/02/20 @ 17:[address] Lillian Suarez, DO) 1. Acute disseminated herpes zoster 2. Acute intractable migraine likely associated with #1 3. Rheumatoid arthritis 4. Immunocompromised state due to drug therapy You will use the following diet at home:: Regular Your food should be the consistency of: Regular Your liquids should be the consistency of: Regular/Thin Discharge Activity: - - Encourage continued moderate activity until clinically improved, no further evidence of any recurrent migraines. Please maintain appropriate hydration, assure appropriate sleep amount and avoid excessive caffeine intake. May resume sexual activity in: - - Advise avoidance of sexual activity until completed entirety of antiviral regimen be cautious. Weight Bearing Status: Weight bearing as tolerated Call your doctor if you observe: Fever of 101 or Higher, Inability to urinate, Inability to have a bowel movement, Shortness of breath, Dizziness, Fainting spells, Chest pain, Uncontrolled pain, - - Recurrent miraines or worsening zoster lesions. Instructions: What Are Migraine and Tension Headaches?, Self-Care for Headaches, Understanding Headache Pain, Migraine Headache: Stages and Treatment, Preventing Migraine Headaches: Triggers, Preventing Migraine Headaches: Medications and Lifestyle Changes, Shingles (Herpes Zoster) Additional Instructions: Please continue gabapentin, depakote ER scheduled for your recent migraines. You may transition toradol only as needed if you are feeling well instead of scheduled. Use the maxalt only if you have a recurrent worsening migraine onset. If you have recurrent migraines you may require evaluation per Neurology and MRI as these have been different than your previously mentioned migraines. You may use the tizanidine if your neck and shoulder strain is still present especially given the recent migraine. Please complete an additional 7 days of the valcyclovir per infectious disease recommendation. The gabapentin will also help with the discomfort associated. Please have your primary care physician consider repeating basic metabolic panel given usage of these medications. Allergies/Adverse Reactions: Allergies cat dander Allergy (Verified 08/18/16 15:38) Unknown hydroxychloroquine [From Plaquenil] Adverse Reaction (Verified 07/02/20 14:57) photosensitivity niacin Adverse Reaction (Verified 07/02/20 14:57) Rash Penicillins Adverse Reaction (Verified 07/02/20 14:57) Rash Medications to take at Discharge Abatacept [Orencia] 125 mg SQ QWEEK 08/18/16 Calcium Carbonate/Vitamin D3 [Calcium 600-Vit D3 200 Tablet] 1 each PO BID 08/18/16 Folic Acid 1 mg [facility] 08/18/16 Methotrexate 20 mg PO WE 08/18/16 traMADol [Ultram] 1 - 2 tab PO Q6H PRN PRN 08/18/16 denosumab 60 mg/mL subcutaneous syringe 60 mg SC [id number] 04/03/18 Ezetimibe 10 mg PO DAILY 07/02/20 Folic Acid 2 mg PO WE 07/02/20 Divalproex Sodium [Depakote ER] 500 mg PO QHS 7 Days #7 tab.er.24h 07/05/20 Gabapentin [Neurontin] 300 mg PO TIDCM #90 cap 07/05/20 Ketorolac [Toradol] 10 mg PO Q8H 2 Days #6 tab 07/05/20 Rizatriptan Benzoate [Maxalt] 10 mg PO Q2H PRN #10 tab 07/05/20 Tizanidine HCl [Zanaflex] 2 mg PO Q8H PRN PRN #20 tab 07/05/20 Valacyclovir HCl [Valtrex] 1,000 mg PO TID #21 tablet 07/05/20 The following prescriptions were given: Divalproex Sodium [Depakote ER] 500 mg PO QHS 7 Days #7 tab.er.24h Transmission Status: Pending to [facility] [place] [address] Rizatriptan Benzoate [Maxalt] 10 mg PO Q2H PRN #10 tab PRN Reason: MIGRAINE SYMPTOMS Transmission Status: Pending to [address] Gabapentin [Neurontin] 300 mg PO TIDCM #90 cap Transmission Status: Pending to [facility] [place] [address] Ketorolac [Toradol] 10 mg PO Q8H 2 Days #6 tab Transmission Status: Pending to [address] Valacyclovir HCl [Valtrex] 1,000 mg PO TID #21 tablet Tizanidine HCl [Zanaflex] 2 mg PO Q8H PRN PRN #20 tab PRN Reason: MUSCLE STRAIN, SPASMS Transmission Status: Pending to [address] Primary Care Physician: Jena Valentin MD [Primary Care Provider] - Please follow up with your Primary Care Physician in: Follow-up within 1-2 days to review admission and assure improving. Test Results: Test results from this visit will be discussed in further detail at your follow-up appointment, if applicable. Proposed Discharge Date: 07/05/20
--- NOTE | 2020-07-05 15:11 | PCM.DC.SUM ---
Discharge Date and Diagnosis - Problem List Patient Problems: Active and Suspected Problems (Last Reviewed 07/02/20 @ 17:[address] Lillian Suarez DO) Disseminated herpes zoster (Acute) Date of Admission: 07/02/20 Date of Discharge: 07/05/20 - Primary Discharge Diagnosis Acute Problems: Active Problems (Last Reviewed 07/02/20 @ 17:[address] Lillian Suarez DO) 1. Acute disseminated herpes zoster 2. Acute intractable migraine likely associated with #1 3. Rheumatoid arthritis 4. Immunocompromised state due to drug therapy - Secondary Discharge Diagnosis Chronic Problems: Chronic Problems (Last Reviewed 07/02/20 @ 17:[address] Lillian Suarez DO) Rheumatoid arthritis (Chronic) Immunocompromised state due to drug therapy (Chronic) Hospital Course and Treatment Dr. Mcintosh Infectious disease Operations: None Procedures: None Summary of Care Provided: The patient is a 74 y/o F w/ PMHx: Rheumatoid arthritis on MTX, orencia and q 6 month Denosumab injections who presented to the [facility] ED on 07/02/20 with history of onset of itching and flat rash starting the Sunday prior to current presentation noted to primarily be on the left side of her head near her left ear, scalp, anterior neck and chest as well as mildly on the right side of her face with associated burning and shooting sharp pain in these regions, recently off Orencia and methotrexate secondary to receiving the COVID-19 vaccine second dose with diagnosis per PCP of herpes zoster initiated on Valtrex but given not improving x24 hours presented to the ED for evaluation. Given significant disseminated herpes zoster patient was admitted to the [facility], maintain on specific airborne precautions given significant appearance until lesions crusted and evaluated by infectious disease, transition to IV acyclovir with addition of gabapentin as well as per narcotic therapy for pain. During admission patient did have onset of migraines which she notes she has had remotely but usually only has visual disturbances but specifically had pain described as sharp and throbbing from the posterior scalp going forward to the frontal region bilaterally, rated 8 out of 10 in severity upon evaluation on 07/05/2020 noted to been ongoing x48 hours with treatment aggressively with initiation of Depacon 500 mg IV every 6, scheduled Toradol, continue gabapentin, magnesium 1 g IV push, Maxalt with clinical complete resolution. Given patient resolution of migraine and control discomfort from disseminated herpes zoster with crusted improving lesions cleared for discharge by infectious disease, patient discharged to home with recommended completion of 7 additional days of valacyclovir per her preference and continued as needed Maxalt, Toradol x2 days as well as transition to Depakote ER 500 mg nightly for 1 additional week with continue gabapentin additionally with follow-up recommended with neurology if any ongoing or recurrent migraines with consideration for MRI if recurrent and persistent migraines given slight change from remote history. Encourage patient to follow-up with her primary care physician within 1 to 2 days to review admission and assure clinically improving. Recommended given medication usage also considering early BMP. DAY OF DISCHARGE PROGRESS NOTE: Subjective: Patient with ongoing intractable migraine reported as an 8 out of 10 initially in the morning however improved following Maxalt to 5 out of 10 but since ongoing and slightly changed patient amenable to initiation of aggressive therapy including scheduled Toradol, scheduled gabapentin, Depacon as well as magnesium IV push 1 g with eventual complete resolution of migraine. Patient noted some still mild burning and itching sensation from the zosters but this had significantly improved since initial presentation. Patient reevaluated late afternoon 07/05/2020 and noted continued complete resolution of migraine and patient requested discharge at that time. was present for these conversations. Patient denies fever, chills, nausea, emesis, abdominal pain, chest pain or dyspnea. Patient agreeable to discharge to home with plan continue regimen as noted. Patient will be discharged with follow-up with primary care physician within 1 to 2 days to review admission. Objective: T 97.8, heart rate 72, BP 104/59, respiratory rate 14, 97% on room air. Physical Examination: General: awake, alert, oriented x 3 and cooperative, seated upright in the PCU bed, NAD. Skin: normal color, turgor, no icterus, cyanosis except noted crusted, fading lesions on the patient neck primarily, minimally scalp and anterior chest, significantly improved. HEENT: AT/NC, EOMI, PERRLA, MMM. Lungs: CTA bilaterally, moderate effort, mild decrease BL bases, no rales, ronchi or wheezing; Heart: Regular rate and rhythm; no gallop, rub audible. Abdomen: soft, NTTP, ND, normal BS. Extremities: no cyanosis, clubbing, or edema. Neurological: patient awake, alert, oriented as noted; cognitive function appears intact upon questioning,; pupils equally reactive to light and accomodation; cranial nerves II-XII grossly normal, moving all 4 extremities, strength improving, mildly globally decreased given initially migraine ongoing complaints. Psychiatric: affect appears initially fatigued and noted ongoing migraine which eventually resolved upon reevaluation, no acute evidence of depressive or anxiety feelings. Assessment and Plan: Please see hospital summary above. Patient Problems: Active and Suspected Problems (Last Reviewed 07/02/20 @ 17:[address] Lillian Suarez, DO) Disseminated herpes zoster (Acute) - Physical Exam Vitals/I&O's: Vital Signs Temp Pulse Resp BP Pulse Ox 97.8 F 72 14 104/59 L 97 07/05/20 14:56 07/05/20 14:56 07/05/20 14:56 07/05/20 14:56 07/05/20 14:56 Oxygen Delivery Method Room Air Weight: 119 lb 4.321 oz Body Mass Index (BMI) 21.8 Intake and Output for Last 24 Hours 07/03/20 07/04/20 07/05/20 23:59 23:59 23:59 Intake Total 2243.2 / 2443.2 1761.6 / 2061.6 1666.6 / 1666.6 Balance 2243.2 / 2443.2 1761.6 / 2061.6 1666.6 / 1666.6 Laboratory Results 07/05/20 05:30: WBC 4.1 L, RBC 4.85, Hgb 14.8, Hct 44.1, MCV 90.9, MCH 30.5, MCHC 33.6, RDW Std Deviation 40.3, RDW Coeff of Dejah 12.3, Plt Count 182, MPV 10.9, Immature Gran % (Auto) 0.000, Neut % (Auto) 32.1 L, Lymph % (Auto) 55.6 H, Page % (Auto) 6.5, Eos % (Auto) 4.8, Baso % (Auto) 1.0, Absolute Neuts (auto) 1.3 L, Absolute Lymphs (auto) 2.30, Nucleated RBC % 0 07/05/20 05:30: Sodium 140, Potassium 4.1, Chloride 107, Carbon Dioxide 28.0, Anion Gap 5, BUN 12, Creatinine 0.74, Estim Creat Clear Calc 40.22, Est GFR (MDRD) Af Amer 99, Est GFR (MDRD) Non-Af 82, BUN/Creatinine Ratio 16.2, Glucose 93, Calcium 8.9 Current Medications Acetaminophen (Acetaminophen 325 Mg Tablet) 650 mg PO Q6H PRN PRN PRN Reason: Pain Score 1-10/Temp > 100.7 F Last Admin: 07/05/20 08:51 Dose: 650 mg Documented by: Al Hydroxide/Mg Hydroxide (Mag Hydrox/Al Hydrox/Simeth 30 Ml Udc) 30 ml PO Q6H PRN PRN PRN Reason: Gastric Burning Ezetimibe (Ezetimibe 10 Mg Tablet) 10 mg PO DAILY [facility] Last Admin: 07/05/20 08:56 Dose: 10 mg Documented by: Folic Acid (Folic Acid 1 Mg Tablet) 1 mg PO [id number] [facility] Last Admin: 07/05/20 08:56 Dose: 1 mg Documented by: Gabapentin (Gabapentin 300 Mg Capsule) 300 mg PO TIDCM [facility] Last Admin: 07/05/20 14:08 Dose: 300 mg Documented by: Sodium Chloride () 250 mls @ 15 mls/hr IV .[id number] PRN PRN Reason: Saline Flush Sodium Chloride () 250 mls @ 15 mls/hr IV .[id number] PRN PRN Reason: Additional IVPB Infusion Acyclovir Sodium 540 mg/ (Dextrose) 260.8 mls @ 260.8 mls/hr IV Q8 [facility] Last Admin: 07/05/20 14:47 Dose: 260 mls/hr Documented by: Valproic Acid 500 mg/ Dextrose 55 mls @ 50 mls/hr IV Q6 [facility] Last Infusion: 07/05/20 12:35 Dose: Infused Documented by: Ketorolac Tromethamine (Ketorolac 15 Mg/Ml Vial) 15 mg IV Q8 [facility] Stop: 07/10/20 09:12 Last Admin: 07/05/20 14:09 Dose: 15 mg Documented by: Melatonin (Melatonin 3 Mg Tablet) 3 mg PO QHS PRN PRN PRN Reason: INSOMNIA Ondansetron HCl (Ondansetron 4 Mg/2 Ml Vial) 4 mg IV Q8H PRN PRN PRN Reason: NAUSEA/VOMITING Oxycodone HCl (Oxycodone 5 Mg Tablet) 5 mg PO Q4H PRN PRN PRN Reason: Pain Score 6-10 Last Admin: 07/04/20 05:40 Dose: 5 mg Documented by: Rizatriptan Benzoate (Rizatriptan Benzoate 10 Mg Tablet) 10 mg PO Q2H PRN PRN Reason: MIGRAINE SYMPTOMS Last Admin: 07/05/20 08:58 Dose: 10 mg Documented by: Senna/Docusate Sodium (Senna/Docusate Sodium 1 Tablet) 2 tablet PO BID PRN PRN PRN Reason: Constipation Sodium Chloride (0.9% Saline Lock 10 Ml Syringe) 10 - 40 ml IV UD PRN PRN Reason: SALINE FLUSH Last Admin: 07/04/20 16:27 Dose: 20 ml Documented by: Temazepam (Temazepam 15 Mg Capsule) 15 mg PO QHS PRN PRN PRN Reason: INSOMNIA Tizanidine HCl (Tizanidine Hcl 2 Mg Tablet) 2 mg PO Q8H PRN PRN PRN Reason: MUSCLE STRAIN, SPASMS Discharge Activity: - - Encourage continued moderate activity until clinically improved, no further evidence of any recurrent migraines. Please maintain appropriate hydration, assure appropriate sleep amount and avoid excessive caffeine intake. May resume sexual activity in: - - Advise avoidance of sexual activity until completed entirety of antiviral regimen be cautious. Weight Bearing Status: Weight bearing as tolerated Call your doctor if you observe: Fever of 101 or Higher, Inability to urinate, Inability to have a bowel movement, Shortness of breath, Dizziness, Fainting spells, Chest pain, Uncontrolled pain, - - Recurrent miraines or worsening zoster lesions. Home Medications: Medications to take at Discharge Abatacept [Orencia] 125 mg SQ QWEEK 08/18/16 Calcium Carbonate/Vitamin D3 [Calcium 600-Vit D3 200 Tablet] 1 each PO BID 08/18/16 Folic Acid 1 mg PO SUMOTUTHFRSA 08/18/16 Methotrexate 20 mg PO WE 08/18/16 traMADol [Ultram] 1 - 2 tab PO Q6H PRN PRN 08/18/16 denosumab 60 mg/mL subcutaneous syringe 60 mg SC [id number] 04/03/18 Ezetimibe 10 mg PO DAILY 07/02/20 Folic Acid 2 mg PO WE 07/02/20 Divalproex Sodium [Depakote ER] 500 mg PO QHS 7 Days #7 tab.er.24h 07/05/20 Gabapentin [Neurontin] 300 mg PO TIDCM #90 cap 07/05/20 Ketorolac [Toradol] 10 mg PO Q8H 2 Days #6 tab 07/05/20 Rizatriptan Benzoate [Maxalt] 10 mg PO Q2H PRN #10 tab 07/05/20 Tizanidine HCl [Zanaflex] 2 mg PO Q8H PRN PRN #20 tab 07/05/20 Valacyclovir HCl [Valtrex] 1,000 mg PO TID #21 tablet 07/05/20 Following Prescriptions Were Given to Patient: Divalproex Sodium [Depakote ER] 500 mg PO QHS 7 Days #7 tab.er.24h Transmission Status: Pending to [address] Rizatriptan Benzoate [Maxalt] 10 mg PO Q2H PRN #10 tab PRN Reason: MIGRAINE SYMPTOMS Transmission Status: Pending to [address] Gabapentin [Neurontin] 300 mg PO TIDCM #90 cap Transmission Status: Pending to [address] Ketorolac [Toradol] 10 mg PO Q8H 2 Days #6 tab Transmission Status: Pending to [address] Valacyclovir HCl [Valtrex] 1,000 mg PO TID #21 tablet Tizanidine HCl [Zanaflex] 2 mg PO Q8H PRN PRN #20 tab PRN Reason: MUSCLE STRAIN, SPASMS Transmission Status: Pending to [address] Primary Care Physician: Jena Valentin MD [Primary Care Provider] - Please follow up with your Primary Care Physician in: Follow-up within 1-2 days to review admission and assure improving. Patient Instructions: What Are Migraine and Tension Headaches?, Self-Care for Headaches, Understanding Headache Pain, Migraine Headache: Stages and Treatment, Preventing Migraine Headaches: Triggers, Preventing Migraine Headaches: Medications and Lifestyle Changes, Shingles (Herpes Zoster) Disposition: Home Minutes spent on discharge:: 35 Patient Condition:: Fair Medical Necessity - Tobacco Use Smoking Status: Never smoker Meaningful Use Info Meaningful Use Diagnoses (Choose all that apply): None applicable Inpatient E&M: 15724 [facility]
== END 2020-07-05 16:23 | disposition home or self-care (01) | DRG 866 ==
LOC: MS3 16:43 → PCU 07-03 00:21
PROVIDERS: Admitting Provider Internal Medicine; PCP Internal Medicine; Referring Provider Internal Medicine; Visit Provider Family Medicine
DX: B02.7 Disseminated zoster (principal); D84.9 Immunodeficiency, unspecified; M06.9 Rheumatoid arthritis, unspecified; G43.919 Migraine, unspecified, intractable, without status migrainosus; Z79.899 Other long term (current) drug therapy
CPT/HCPCS: 36415; 80048; 80053; 83735; 84100; 85025; 85027; A4216; J3475; J3490

== ENCOUNTER → 2020-07-22 10:24 | Outpatient (CLI) | payer MEDICARE, OTHER, SELFPAY ==
[2020-07-02 14:47] VITALS: BMI 21.8
[2020-07-22 12:19] LABS: Absolute Lymphocyte Count 2.15 X10^3/uL (0.83-4.51); Absolute Neutrophil Count 5.7 X10^3/uL (2.0-7.7); Basophil# 0.05 X10^3/uL; Basophil% 0.6 % (0-1); Eosinophil# 0.12 X10^3/uL; Eosinophils% 1.4 % (0-5); Hematocrit 45.7 % (37-47); Hemoglobin 14.8 g/dL (12.0-15.0); Lymphocyte # 2.15 X10^3/ul (4.0); Lymphocyte % 25.5 % (19-41); Mean Corp Hgb Conc 32.4 g/dL (32-36); Mean Corpuscular Hgb 29.9 pg (27.0-32.0); Mean Corpuscular Volume 92.3 fL (81-99); Mean Platelet Vol. 11.2 fl (6.2-12.0); Monocyte# 0.41 X10^3/uL; Monocyte% 4.9 % (0-10); NRBC Flagged by Analyzer 0 % (0-5); Neutrophil # 5.67 X10^3/uL (2.7-7.7); Neutrophil % 67.4 % (47-70); Platelet Count 296 K/mm3 (150-450); RBC Distribution Width CV 13.5 % (11.6-14.6); RBC Distribution Width SD 44.8 fl (35.1-43.9); Red Blood Count 4.95 M/mm3 (4.2-5.4); White Blood Count 8.4 K/mm3 (4.4-11.0)
[2020-07-22 12:33] LABS: ALB/GLOB Ratio 1.2 RATIO (0.9-2.4); AST(SGOT) 22 U/L (15-37); Alanine Aminotransfer ALT/SGPT 26 U/L (13-56); Albumin, Serum 3.7 g/dL (3.2-5.0); Alkaline Phosphatase 52 U/L (45-117); Anion Gap 5 (5-15); BUN 16 mg/dL (7-18); BUN/Creat Ratio 17.9 RATIO (10-20); Calcium,Total 9.8 mg/dL (8.5-10.1); Chloride 108 mmol/L (98-107); Creatinine, Serum 0.89 mg/dL (0.55-1.02); EST Glomerular Filtration Rate 66 mL/min (>60); Est Glom Filt Rate - Afr Amer 80 mL/min (>60); Globulin 3.2 g/dL (2.2-4.2); Glucose 91 mg/dL (74-106); Protein, Total 6.9 g/dL (6.4-8.2); Sodium Level 141 mmol/L (136-145)
== END ==
PROVIDERS: PCP Internal Medicine; Referring Provider Internal Medicine Rheumatology; Visit Provider Internal Medicine Rheumatology
DX: M06.00 Rheumatoid arthritis without rheumatoid factor, unspecified site (principal); Z79.899 Other long term (current) drug therapy; M16.11 Unilateral primary osteoarthritis, right hip; M17.0 Bilateral primary osteoarthritis of knee; M18.12 Unilateral primary osteoarthritis of first carpometacarpal joint, left hand; M81.0 Age-related osteoporosis without current pathological fracture; M47.897 Other spondylosis, lumbosacral region; M47.892 Other spondylosis, cervical region; M50.30 Other cervical disc degeneration, unspecified cervical region; E78.5 Hyperlipidemia, unspecified; G47.33 Obstructive sleep apnea (adult) (pediatric)
CPT/HCPCS: 36415; 80053; 85025

== ENCOUNTER → 2020-08-03 09:37 | Outpatient (CLI) | payer MEDICARE, OTHER, SELFPAY ==
--- NOTE | 2020-08-03 09:40 | BI_ITS ---
MAMMOGRAPHY - BILATERAL SCREENING REASON FOR EXAM: Female, 74 years old. Routine annual screening examination. PERTINENT HISTORY: Non-contributory. Remote left excisional breast biopsy. TECHNIQUE: Digital bilateral breast jackelin (3D mammographic acquisition) in the CC and MLO projections. 2-D mediolateral oblique (MLO) and craniocaudad (CC) views of both breasts were obtained. CAD: Full Field Digital Mammography with Computer Added Detection was performed. COMPARISON: Comparison is made with prior study 07/30/2019 and 07/11/2018. FINDINGS: Breast Composition: The breasts are heterogeneously dense, which may obscure small masses. There are no dominant masses or suspicious calcifications. No other significant abnormalities are identified. There has been no significant change since the prior study. BI/SCRN MAMM (CAD)W/JACKELIN BILAT IMPRESSION: Stable bilateral screening mammogram. Yearly follow-up mammogram recommended. (A) ASSESSMENT CATEGORY: BIRADS Category 1: Negative. A letter regarding these results will be sent to the patient by the facility within 30 days. Approximately 10% of breast cancers are not detected by mammography. A normal mammogram should not delay biopsy of a clinically suspicious abnormality. [id number] Electronically Signed: Yaya Bartlett MD at 8:34 EDT , Service support ,
--- NOTE | 2020-08-03 09:43 | BD_ITS ---
STUDY: DUAL ENERGY X-RAY ABSORPTIOMETRY / DXA REASON FOR EXAM: Female, 74 years old. Z780. Early menopause. Loss of height. TECHNIQUE: Bone Mineral Density (BMD) measurements of unilateral hip (left) were obtained. COMPARISON: Comparison is made with prior study dated 07/23/2018. FINDINGS: Lumbar Spine (L1-L4): g/cm2 (1.276) / T-score (0.9) / Z-score (2.6) Findings are suggestive of normal bone density with a low fracture risk. Left Femur Total: g/cm2 (0.912) / T-score (-0.8) / Z-score (0.8) Left Femoral Neck: g/cm2 (0.779) / T-score (-1.9) / Z-score (-0.1) The T-Scores on the most recent prior examination were: Lumbar Spine (L1-L4): There has been improvement of bone density since the previous examination. Left Femur Total: which represents an improvement of 4.6%. BD/Dexa Bone Density Study IMPRESSION: The patient is considered osteopenic as outlined below according to World Richard Organization (WHO) criteria with a moderate fracture risk. There has been improvement of bone density since the previous examination. Reference Information: The T-score is the number of standard deviations above or below the standard which is normal for young adults at their peak bone mineral density. The World Health Organization (WHO) interprets the T-scores as follows: Above -1 Normal bone density Between -1 and -2.5 Osteopenia Equal to / or below -2.5 Osteoporosis As a practical clinical guideline, osteopenia may be graded as follows: Mild -1 through -1.5 Moderate -1.6 through -2.0 Severe -2.1 through -2.4 The Z-score is the number of standard deviations above or below age-matched controls. A Z-score of less than -1.5 would be considered abnormal. References: 1. NIH Osteoporosis and Related Bone Diseases www osteo.org 2. International Society for Clinical Densitometry www iscd.org 3. National Osteoporosis Foundation www nof.org Electronically Signed: Yaya Bartlett MD at 14:37 EDT , Service support ,
== END ==
PROVIDERS: PCP Internal Medicine; Referring Provider Internal Medicine; Visit Provider Internal Medicine
DX: Z12.31 Encounter for screening mammogram for malignant neoplasm of breast (principal); M81.0 Age-related osteoporosis without current pathological fracture
CPT/HCPCS: 77063; 77067; 77080

== ENCOUNTER → 2020-08-13 | Outpatient (CLI) | payer MEDICARE, OTHER, SELFPAY ==
--- NOTE | 2020-08-13 | FLU_PTH ---
PATIENT: LIBORIO GENTILE LOC: [facility] U#:[id number] AGE/SX: 74/F ROOM: RE08/13/[address]: Dr. Jena Valentin MD : 1945 BED: DIS: 08/13/2020 SPEC #: [id number] RECD: 08/16/20 12:18 STATUS: BENITO JUAN C #: [id number] DIEGO: 08/13/20 00:[address]: Jena Valentin DEPT: CYTOLOGY RECD BY: Michelle Batres Tissues: Synovial fluid Procedures: Special Stain Group II Surgery Specimen Level IV Cytospin Fluid HEADER OPERATION: Not noted PRE-OP DIAGNOSIS: Hemarthrosis TISSUE SUBMITTED: Synovial fluid for cytology DIAGNOSIS CYTOLOGY Synovial fluid for cytology (cytospin and cell block): Negative for malignant cells. Bloody specimen. See comment. TAISHA:giuliana 08/17/2020 COMMENT Clinical correlation and appropriate follow up are necessary. CYTOLOGY STUDY Slides are reviewed. CYTOLOGY GROSS Received is 30 ml of dark red cloudy fluid labeled with the patient's name and and designated per the requisition as synovial. Submitted for cytology preparation including cell block. / giuliana 08/16/2020 TC:5 CPT: 45306, 78672
[2020-08-13 16:08] LABS: Pathologist Comment/Body Fluid May follow
[2020-08-13 16:50] LABS: Body Fluid Mononuclear WBC % 15.5 %; Body Fluid Polynuclear WBC # 3.439 10^3/uL; Body Fluid Polynuclear WBC % 84.5 %; Body Fluid Total Cells Counted 4.076 10^3/ul; Red Cell Count/Body Fluid 0.259 10^6/ul; White Blood Count/Body Fluid 4.069 10^3/uL
[2020-08-13 17:16] LABS: Auto B Fluid Analyzer BKGD Ct COUNTS W/IN LIMITS (W/IN LIMITS)
[2020-08-13 17:17] LABS: Appearance/Body Fluid TURBID; Color/Body Fluid RED
[2020-08-13 17:51] LABS: Source- Body Fluid OTHER; Source- Body Fluid SYNOVIAL
[2020-08-13 17:52] LABS: Body Fluid QC Type(s) BF1Q,BF2Q
[2020-08-13 17:57] LABS: Lymphocytes 3 %; Monocytes 5 %; Neutrophil (Segs) 93 %
[2020-08-17 11:38] LABS: Pathologist Review Reviewed
== END | disposition home or self-care (01) ==
LOC: LABSPEC 15:42
PROVIDERS: PCP Internal Medicine; Visit Provider Internal Medicine
DX: M25.00 Hemarthrosis, unspecified joint (principal)
CPT/HCPCS: 87015; 87070; 87075; 87116; 87205; 87206; 88108; 88305; 88313; 89050; 89060

== ENCOUNTER → 2020-09-22 | Outpatient (CLI) | payer MEDICARE, OTHER, SELFPAY ==
[2020-09-22 10:50] LABS: Pathologist Comment May follow
[2020-09-22 11:51] LABS: RBC /Synovial Fluid 0.339 10^6/uL (0); Synovial Fld Mononuclear WBC % 22.2 %; Synovial Fld Polynuclear WBC # 4.047 10^3/uL; Synovial Fld Polynuclear WBC % 77.8 %
[2020-09-22 11:52] LABS: AUTO B FLUID DILUENT BKGD CT WBC <0.1 RBC <0.01 (W<.1,R<.01); Color / Synovial Fluid Red (Pale Yellow); Source / Synovial Fluid KNEE; Source- Body Fluid SYNOVIAL; Viscosity / Synovial Fluid Mod. Viscous (HIGH)
[2020-09-22 11:53] LABS: Appearance /Synovial Fluid Turbid (CLEAR)
[2020-09-22 12:36] LABS: Body Fluid QC Type(s) BF1Q,BF2Q; Lymph 24 %; Neutrophil 76 % (0-25)
[2020-09-23 12:45] LABS: Pathologist Review Reviewed
== END | disposition home or self-care (01) ==
LOC: LABSPEC 10:42
PROVIDERS: PCP Internal Medicine; Referring Provider Internal Medicine Rheumatology; Visit Provider Internal Medicine Rheumatology
DX: M06.00 Rheumatoid arthritis without rheumatoid factor, unspecified site (principal); Z79.899 Other long term (current) drug therapy; M16.11 Unilateral primary osteoarthritis, right hip; M17.0 Bilateral primary osteoarthritis of knee; M18.12 Unilateral primary osteoarthritis of first carpometacarpal joint, left hand; M81.0 Age-related osteoporosis without current pathological fracture; M47.897 Other spondylosis, lumbosacral region; M47.892 Other spondylosis, cervical region; M50.30 Other cervical disc degeneration, unspecified cervical region; E78.5 Hyperlipidemia, unspecified; G47.33 Obstructive sleep apnea (adult) (pediatric)
CPT/HCPCS: 87070; 87075; 87205; 89050; 89051; 89060

== ENCOUNTER → 2020-10-04 10:08 | Outpatient (CLI) | payer MEDICARE, OTHER, SELFPAY ==
--- NOTE | 2020-10-04 10:12 | RAD_ITS ---
STUDY: X-RAY - RIGHT KNEE REASON FOR EXAM: Female, 74 years old. PAIN TECHNIQUE: 5 view(s) of the knee. COMPARISON: None. FINDINGS: No acute fracture, dislocation or osseous destruction. Severe medial compartment osteoarthritis with 6 mm osteochondral lesion and osteophyte production. Severe patellofemoral joint arthrosis. No significant soft tissue swelling. RAD/Knee 4 or More Views IMPRESSION: Right knee acutely intact Severe osteoarthritis Electronically Signed: Richard Ly DO at 10:38 EDT Tel , Service support ,
== END ==
PROVIDERS: PCP Internal Medicine; Referring Provider Internal Medicine; Visit Provider Internal Medicine
DX: M25.561 Pain in right knee (principal)
CPT/HCPCS: 73564

== ENCOUNTER → 2020-10-12 16:25 | Outpatient (CLI) | payer MEDICARE, OTHER, SELFPAY ==
[2020-10-12 17:56] LABS: Free T3 2.1 pg/mL (2.18-3.98); T4 Total, Thyroxin 8.5 ug/dL (4.8-13.9); Thyroid Stim Hormone (TSH) 2.05 uIU/mL (0.358-3.74)
[2020-10-14 07:53] LABS: Thyroid Peroxidase AB < 9 IU/mL (0-34)
== END ==
PROVIDERS: PCP Internal Medicine; Referring Provider Internal Medicine; Visit Provider Internal Medicine
DX: R79.89 Other specified abnormal findings of blood chemistry (principal)
CPT/HCPCS: 36415; 84436; 84443; 84481; 86376

== ENCOUNTER → 2020-10-21 07:58 | Outpatient (CLI) | payer MEDICARE, OTHER, SELFPAY ==
--- NOTE | 2020-10-21 08:08 | MRI_ITS ---
STUDY: MRI LEFT KNEE REASON FOR EXAM: Female, 74 years old. Hemarthrosis. TECHNIQUE: Standardized fat and water weighted pulse sequences were obtained in all 3 orthogonal planes. COMPARISON: X-ray dated 10/04/2020. FINDINGS: Chronic patellar fracture with bone remodeling (axial image 8 series 2). Lateral patellar tilt with locked appearance involving the lateral femoral trochlea (axial image 10 series 2). Advanced patellofemoral arthrosis. Patellar reactive bone marrow edema. Medial compartment grade 2 cartilage loss. Lateral compartment articular cartilage preserved. No acute fracture line. No acute dislocation. No acute cortical destruction. Proximal fibular head 2.5 cm x 1.7 cm bone lesion most compatible with enchondroma. Medial meniscus truncation with minimal intact medial meniscus posterior horn tissue (sagittal images 9 through 16 series 3 and small undersurface tear (sagittal image 11 series 3). Lateral meniscus intact. Small volume joint effusion with minimal residual debris/blood products. Small popliteal cyst. No significant subcutaneous swelling. Posterior loose body measuring 5 mm (sagittal image 19 series 3). Normal medial collateral ligamentous complex (MCL). Normal distal semimembranosus, gracilis and semitendinosus tendons. Normal lateral collateral (fibular) ligament. Normal popliteus tendon. Normal biceps femoris tendon. Normal anterior cruciate ligament (ACL). Normal posterior cruciate ligament (PCL). Chronic thickened lateral patellofemoral retinaculum. Normal medial patellofemoral retinaculum. Normal TT-TG distance distance. Remodeled trochlear groove. Normal quadriceps tendon. Mild patellar tendinosis with low-grade interstitial tear (axial image 15 series 2). Normal Hoffa''s fat pad. MRI/Lower Ext Joint Only (Routine) IMPRESSION: Minimal intact medial meniscus body/posterior horn tissue with posterior horn undersurface tear Chronic patellar fracture with bone remodeling, remodeled trochlear groove, locked appearance/lateral tilt and advanced cartilage loss (correlate patellar mobility) Mild medial compartment osteoarthritis Thickened lateral patellofemoral retinaculum Small-volume joint effusion, small popliteal cyst, minimal residual blood products/debris and posterior loose body Mild patellar tendinosis with low-grade interstitial tear Proximal fibular chondroid lesion (statistically enchondroma) Electronically Signed: Richard Ly DO at 11:59 EDT Tel , Service support ,
== END ==
PROVIDERS: PCP Internal Medicine; Referring Provider Internal Medicine; Visit Provider Internal Medicine
DX: M25.062 Hemarthrosis, left knee (principal)
CPT/HCPCS: 73721

== ENCOUNTER → 2020-10-26 11:07 | Outpatient (CLI) | payer MEDICARE, OTHER, SELFPAY ==
[2020-10-26 15:23] LABS: Absolute Lymphocyte Count 2.28 X10^3/uL (0.83-4.51); Absolute Neutrophil Count 2.1 X10^3/uL (2.0-7.7); Basophil# 0.03 X10^3/uL; Basophil% 0.6 % (0-1); Eosinophil# 0.12 X10^3/uL; Eosinophils% 2.5 % (0-5); Hematocrit 45.1 % (37-47); Hemoglobin 14.9 g/dL (12.0-15.0); Lymphocyte # 2.28 X10^3/ul (0.83-4.51); Mean Corpuscular Hgb 30.5 pg (27.0-32.0); Mean Corpuscular Volume 92.2 fL (81-99); Mean Platelet Vol. 11.7 fl (6.2-12.0); Monocyte# 0.32 X10^3/uL; Monocyte% 6.6 % (0-10); NRBC Flagged by Analyzer 0 % (0-5); Neutrophil % 43.3 % (47-70); Platelet Count 249 K/mm3 (150-450); RBC Distribution Width CV 12.8 % (11.6-14.6); RBC Distribution Width SD 43.4 fl (35.1-43.9); Red Blood Count 4.89 M/mm3 (4.2-5.4); White Blood Count 4.9 K/mm3 (4.4-11.0)
[2020-10-26 15:46] LABS: ALB/GLOB Ratio 1.2 RATIO (0.9-2.4); AST(SGOT) 28 U/L (15-37); Alanine Aminotransfer ALT/SGPT 25 U/L (13-56); Albumin, Serum 3.6 g/dL (3.2-5.0); Alkaline Phosphatase 54 U/L (45-117); Anion Gap 8 (5-15); BUN 16 mg/dL (7-18); BUN/Creat Ratio 20.1 RATIO (10-20); Chloride 108 mmol/L (98-107); EST Glomerular Filtration Rate 75 mL/min (>60); Est Glom Filt Rate - Afr Amer 91 mL/min (>60); Glucose 91 mg/dL (74-106); Potassium 3.7 mmol/L (3.5-5.1); Protein, Total 6.6 g/dL (6.4-8.2); Sodium Level 140 mmol/L (136-145)
== END ==
PROVIDERS: PCP Internal Medicine; Referring Provider Internal Medicine Rheumatology; Visit Provider Internal Medicine Rheumatology
DX: M06.00 Rheumatoid arthritis without rheumatoid factor, unspecified site (principal); Z79.899 Other long term (current) drug therapy; M25.562 Pain in left knee; M16.11 Unilateral primary osteoarthritis, right hip; M17.0 Bilateral primary osteoarthritis of knee; M18.12 Unilateral primary osteoarthritis of first carpometacarpal joint, left hand; M81.0 Age-related osteoporosis without current pathological fracture; M47.897 Other spondylosis, lumbosacral region; M47.892 Other spondylosis, cervical region; M50.30 Other cervical disc degeneration, unspecified cervical region; E78.5 Hyperlipidemia, unspecified; G47.33 Obstructive sleep apnea (adult) (pediatric)
CPT/HCPCS: 36415; 80053; 85025

== ENCOUNTER → 2021-01-20 11:11 | Outpatient (CLI) | payer MEDICARE, OTHER, SELFPAY ==
[2021-01-20 15:09] LABS: Absolute Lymphocyte Count 1.77 X10^3/uL (0.83-4.51); Absolute Neutrophil Count 2.4 X10^3/uL (2.0-7.7); Basophil# 0.06 X10^3/uL; Basophil% 1.2 % (0-1); Eosinophil# 0.26 X10^3/uL; Eosinophils% 5.4 % (0-5); Hematocrit 40.2 % (37-47); Hemoglobin 12.9 g/dL (12.0-15.0); Lymphocyte # 1.77 X10^3/ul (0.83-4.51); Lymphocyte % 36.8 % (19-41); Mean Corp Hgb Conc 32.1 g/dL (32-36); Mean Corpuscular Hgb 28.9 pg (27.0-32.0); Mean Corpuscular Volume 89.9 fL (81-99); Mean Platelet Vol. 10.8 fl (6.2-12.0); Monocyte# 0.36 X10^3/uL; Monocyte% 7.5 % (0-10); NRBC Flagged by Analyzer 0 % (0-5); Neutrophil # 2.35 X10^3/uL (2.7-7.7); Neutrophil % 48.9 % (47-70); Platelet Count 324 K/mm3 (150-450); RBC Distribution Width SD 42.3 fl (35.1-43.9); Red Blood Count 4.47 M/mm3 (4.2-5.4); White Blood Count 4.8 K/mm3 (4.4-11.0)
[2021-01-20 15:29] LABS: ALB/GLOB Ratio 1.1 RATIO (0.9-2.4); AST(SGOT) 16 U/L (15-37); Alanine Aminotransfer ALT/SGPT 19 U/L (13-56); Albumin, Serum 3.5 g/dL (3.2-5.0); Alkaline Phosphatase 59 U/L (45-117); Anion Gap 6 (5-15); BUN 15 mg/dL (7-18); Calcium,Total 8.5 mg/dL (8.5-10.1); Chloride 108 mmol/L (98-107); Creatinine, Serum 0.65 mg/dL (0.55-1.02); EST Glomerular Filtration Rate 95 mL/min (>60); Est Glom Filt Rate - Afr Amer 114 mL/min (>60); Globulin 3.3 g/dL (2.2-4.2); Glucose 72 mg/dL (74-106); Protein, Total 6.8 g/dL (6.4-8.2); Sodium Level 140 mmol/L (136-145)
== END ==
PROVIDERS: PCP Internal Medicine; Referring Provider Internal Medicine Rheumatology; Visit Provider Internal Medicine Rheumatology
DX: M06.00 Rheumatoid arthritis without rheumatoid factor, unspecified site (principal); Z79.899 Other long term (current) drug therapy; M25.562 Pain in left knee; M16.11 Unilateral primary osteoarthritis, right hip; M17.0 Bilateral primary osteoarthritis of knee; M18.12 Unilateral primary osteoarthritis of first carpometacarpal joint, left hand; M81.0 Age-related osteoporosis without current pathological fracture; M47.897 Other spondylosis, lumbosacral region; M47.892 Other spondylosis, cervical region; M50.30 Other cervical disc degeneration, unspecified cervical region; E78.5 Hyperlipidemia, unspecified; G47.33 Obstructive sleep apnea (adult) (pediatric)
CPT/HCPCS: 36415; 80053; 85025

== ENCOUNTER 2021-02-28 09:00 | Outpatient (RCR) | payer MEDICARE, OTHER, SELFPAY ==
--- NOTE | 2020-12-24 12:20 | HP.PTEVAL ---
Patient's Visit Information LIBORIO GENTILE is a 75 year old F referred to Physical Therapy by [facility]RBANO [facility]ARDS with a diagnosis of L TKA. Date of Evaluation: 12/22/20 Physical Therapist: Eran Whatley DPT - Visit Plan Frequency: 3x /Week Duration: 5 weeks Plan: Start with ROM progression, focus on end ranges as tolerated. Progress gait, progressing to functional strengthening/mobility. May ice and vaso for edema/pain control. - Subjective Pt. is here today for her initial evaluation with L TKA. DOS: 12/20/20. Pt. reports she was doing well, but this morning she is having more pain. I talked to her about the nerve block likely wearing off. Pt. was also feeling nauseated, but felt that this was due to her pain medication being taken with not eating much. 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 Pt. reports overall being in good health, minus her knee surgery. Pt. arrives today with her walking with knee compression on. She denies N/T in either LE, no calf pain, no shortness of breath or dizziness. Pt. is hopeful to get back to all cycling both teaching and recreationally and all other activities without limitations. - Pain L knee Pain Intensity (Out of 10): 4 Pain Intensity Range: 2, 8 - Objective POSTURE: Pt. has good posture in stance. Pt. does have increased wt. shift to R side and lacks TKE on L side. PALAPTION: Pt. has mild amount of swelling around her L knee. Pt. has nor signs of infection. She still has bandage on and is to take off in a few days. Negative homans signs. No calf pain, no increased warmth noted. NEURO: normal sensation of bilateral LEs and normal DTR of B achilles. ROM: R knee 0-0-131deg. L knee 0-15-90deg. Pt. reports increased tenderness at end ranges of motion, both into flexion/extension. MMT: RLE 5/5 throughout. LLE ankle 5/5 throughout; knee- ext 3/5, flexion 3+/5; hip- flexion 3/5, abd 3/5, ext 3/5. GAIT: Pt. ambulates with FWW. Pt. has decreased step length bilaterally. Pt. has increased Wt. bearing through UEs during L stance phase. Decreased L heel strike and decreased L knee flexion during swing phase. STAIRS: step to pattern with 2 HR without LOB. Loading only RLE during trials. - Balance/Special Test Scores TUG Test Time Seconds: 34 - Goals Goal 1:: LTG: pt. to be I with HEP. Goal Time Frame: 4-6 Weeks Goal 2:: STG: Pt. to achieve 0-0-120deg of passive L knee ROM. Goal Time Frame: 2 Weeks Goal 3:: LTG: Pt. to achieve 0-0-120deg of L knee active ROM. Goal Time Frame: 2-4 Weeks Goal 4:: STG: pt. to have improved gait pattern with use of FWW, walking at least 500+ feet. Goal Time Frame: 2 Weeks Goal 5:: LTG: Pt. to have normalized gait pattern without use of AD and 0-1/10 pain in L knee. Goal Time Frame: 4-6 Weeks Goal 6:: LTG: Pt. to have increased LLE strength to at least 5-/5 throughout Goal Time Frame: 4-6 Weeks - Rehabilitation Potential Physical Therapy Diagnosis: Pt. has signs and symptoms consistent with L TKA. Pt. has subsequent hypomobility, weakness, difficulty with gait and increased pain. pt. would benefit from PT to work on above limitations progressing back to all functional mobility as tolerated. Rehabilitation Potential: Excellent - Anticipated Interventions Patient/Client Instruction: Educate patient on: Condition, Plan of Care, Risk Factors For the Purpose of:: To facilitate caregiver knowledge, To improve self management, To prevent re-injury, To improve ability to perform tasks related to life management, To improve tolerance to ADL's Therapeutic Exercise to Include: Strength training, Power training, Endurance training, Postural training, Flexibilty training, Passive ROM, Active ROM For the Purpose of:: To decrease pain, To decrease swelling/inflammation, To increase ROM, To improve nutrient delivery to tissue, To increase oxygenation perfusion, To improve muscle performance and motor function Cryotherapy (ice pack, ice massage): Yes Vasopneumatic device: Yes For the Purpose of:: To decrease pain, To decrease swelling/inflammation, To increase ROM Thank you for the opportunity to evaluate your patient. For Medicare and Medicare HMO plans, please review the plan of care and approve it. It will need to be FAXED BACK to us at [phone] for Medicare purposes. For Medicare only, by signing this I certify the plan of care. Please let me know if there are questions or concerns regarding this plan of care. Physician Signature: Date:
--- NOTE | 2021-01-17 11:32 | HP.PTREVAL ---
URBANO EDWARDS, It has been my pleasure to treat LIBORIO GENTILE over the last 10 visits for L TKA. Please see the progress note below for an update on the physical therapy plan of care! Subjective: Pt. reports being 70% better overall. Pt. is no longer using her AD, occasionally taking pain meds, but not much. She reports having increased pain after doing more last night. I was walking a lot. Objective/Function: ROM: L knee 0-0-116deg AAROM. Pt. has pain at end range flexion, but is tolerating extension much better. Pt. has good gait pattern as well, but does lack knee flexion during swing phase. She still has some limitations with strength 4/5 throughout. Pt. has difficulty reciprocally ascending/descending steps with 2 HR. Overall she is doing well. Plan Plan: Start with ROM progression, focus on end ranges as tolerated. Progress gait, progressing to functional strengthening/mobility. May ice and vaso for edema/pain control. Balance/Gait/Functional tests - Balance/Special Test Scores Lower Extremity Functional Score: 7 TUG Test Time Seconds: 34 Tug Test: >30sec.=impaired mobility Goals Goal 1:: LTG: pt. to be I with HEP. Goal Time Frame: 4-6 Weeks Goal Progress: Progressing Goal 2:: STG: Pt. to achieve 0-0-120deg of passive L knee ROM. Goal Time Frame: 2 Weeks Goal Progress: Progressing Goal 3:: LTG: Pt. to achieve 0-0-120deg of L knee active ROM. Goal Time Frame: 2-4 Weeks Goal Progress: Progressing Goal 4:: STG: pt. to have improved gait pattern with use of FWW, walking at least 500+ feet. Goal Time Frame: 2 Weeks Goal Progress: Goal Met Goal 5:: LTG: Pt. to have normalized gait pattern without use of AD and 0-1/10 pain in L knee. Goal Time Frame: 4-6 Weeks Goal Progress: Progressing Goal 6:: LTG: Pt. to have increased LLE strength to at least 5-/5 throughout Goal Time Frame: 4-6 Weeks Goal Progress: Progressing Anticipated Interventions Patient/Client Instruction: Educate patient on: Condition, Plan of Care, Risk Factors For the Purpose of:: To facilitate caregiver knowledge, To improve self management, To prevent re-injury, To improve ability to perform tasks related to life management, To improve tolerance to ADL's Therapeutic Exercise to Include: Strength training, Power training, Endurance training, Postural training, Flexibilty training, Passive ROM, Active ROM For the Purpose of:: To decrease pain, To decrease swelling/inflammation, To increase ROM, To improve nutrient delivery to tissue, To increase oxygenation perfusion, To improve muscle performance and motor function Cryotherapy (ice pack, ice massage): Yes Vasopneumatic device: Yes For the Purpose of:: To decrease pain, To decrease swelling/inflammation, To increase ROM Please do not hesitate to contact me at [phone] by phone or if you have questions or concerns regarding this new plan of care! Sincerely, Eran Whatley DPT
--- NOTE | 2021-01-27 11:10 | HP.PTREVAL ---
URBANO EDWARDS, It has been my pleasure to treat LIBORIO FAJARDO over the last 17 visits for L TKA. Please see the progress note below for an update on the physical therapy plan of care! Subjective: Pt. reports overall doing well, 80-90% better. Pt. reports having some pain, mostly at night. Pt. is overall pleased. Pt. is still have some swelling, but is doing well. Objective/Function: ROM: 0-0-118deg AROM, PROM 0-0-122deg. MMT: Pt. has 5/5 strength throughout BLEs. Pt. is ambulating well without issues, stairs. She is able to negotiate well, with some slight discomfort with descending. She is independent with gym ROM and strengthening exercises. She is a little tight with active flexion, but is overall doing well. Plan Plan: Pt. to follow up with physician next week to determine if further PT is warranted. Balance/Gait/Functional tests - Balance/Special Test Scores Lower Extremity Functional Score: 63 TUG Test Time Seconds: 34 Tug Test: >30sec.=impaired mobility Goals Goal 1:: LTG: pt. to be I with HEP. Goal Time Frame: 4-6 Weeks Goal Progress: Goal Met Goal 2:: STG: Pt. to achieve 0-0-120deg of passive L knee ROM. Goal Time Frame: 2 Weeks Goal Progress: Goal Met Goal 3:: LTG: Pt. to achieve 0-0-120deg of L knee active ROM. Goal Time Frame: 2-4 Weeks Goal Progress: Progressing Goal 4:: STG: pt. to have improved gait pattern with use of FWW, walking at least 500+ feet. Goal Time Frame: 2 Weeks Goal Progress: Goal Met Goal 5:: LTG: Pt. to have normalized gait pattern without use of AD and 0-1/10 pain in L knee. Goal Time Frame: 4-6 Weeks Goal Progress: Goal Met Goal 6:: LTG: Pt. to have increased LLE strength to at least 5-/5 throughout Goal Time Frame: 4-6 Weeks Goal Progress: Goal Met Anticipated Interventions Patient/Client Instruction: Educate patient on: Condition, Plan of Care, Risk Factors For the Purpose of:: To facilitate caregiver knowledge, To improve self management, To prevent re-injury, To improve ability to perform tasks related to life management, To improve tolerance to ADL's Therapeutic Exercise to Include: Strength training, Power training, Endurance training, Postural training, Flexibilty training, Passive ROM, Active ROM For the Purpose of:: To decrease pain, To decrease swelling/inflammation, To increase ROM, To improve nutrient delivery to tissue, To increase oxygenation perfusion, To improve muscle performance and motor function Cryotherapy (ice pack, ice massage): Yes Vasopneumatic device: Yes For the Purpose of:: To decrease pain, To decrease swelling/inflammation, To increase ROM Please do not hesitate to contact me at [phone] by phone or if you have questions or concerns regarding this new plan of care! Sincerely, DELICIA CardonaT
--- NOTE | 2021-02-07 13:50 | HP.PTREVAL_ITS ---
URBANO EDWARDS, It has been my pleasure to treat LIBORIO FAJARDO over the last 18 visits for L TKA. Please see the progress note below for an update on the physical therapy plan of care! Subjective: Pt. reports overall doing well. She had her follow up visit with her physician who was pleased with her ROM, but when she was walking she felt a sharp pain at her lateral knee. Pt. has had this occur a few times, but was checked out without issues. She reports pain at lateral L knee near IT band insertion. Objective/Function: Pt. has tenderness at distal IT band insertion. Pt. had weakness noted at her hip ER musculature. overall she had good ROM, but her symptoms are causing her difficulty with initial walking. Cont. to progress strength and IT band ROm as tolerated. 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 Pt. would benefit from continued PT to work on IT band stretching, foam rolling and glute medius stretnghtening. I will see her x2 per week for 3 weeks to work on the above limitations. Balance/Gait/Functional tests - Balance/Special Test Scores Lower Extremity Functional Score: 63 TUG Test Time Seconds: 34 Tug Test: >30sec.=impaired mobility Goals Goal 1:: LTG: pt. to be I with HEP. Goal Time Frame: 4-6 Weeks Goal Progress: Goal Met Goal 2:: STG: Pt. to achieve 0-0-120deg of passive L knee ROM. Goal Time Frame: 2 Weeks Goal Progress: Goal Met Goal 3:: LTG: Pt. to achieve 0-0-120deg of L knee active ROM. Goal Time Frame: 2-4 Weeks Goal Progress: Progressing Goal 4:: STG: pt. to have improved gait pattern with use of FWW, walking at least 500+ feet. (NEW GOAL 02/07/21)- Pt. to have no lateral L knee pain with all ambulation. Goal Time Frame: 2 Weeks Goal Progress: Progressing Goal 5:: LTG: Pt. to have normalized gait pattern without use of AD and 0-1/10 pain in L knee. Goal Time Frame: 4-6 Weeks Goal Progress: Progressing Goal 6:: LTG: Pt. to have increased LLE strength to at least 5-/5 throughout Goal Time Frame: 4-6 Weeks Goal Progress: Goal Met Anticipated Interventions Patient/Client Instruction: Educate patient on: Condition, Plan of Care, Risk Factors For the Purpose of:: To facilitate caregiver knowledge, To improve self management, To prevent re-injury, To improve ability to perform tasks related to life management, To improve tolerance to ADL's Therapeutic Exercise to Include: Strength training, Power training, Endurance training, Postural training, Flexibilty training, Passive ROM, Active ROM For the Purpose of:: To decrease pain, To decrease swelling/inflammation, To increase ROM, To improve nutrient delivery to tissue, To increase oxygenation perfusion, To improve muscle performance and motor function Cryotherapy (ice pack, ice massage): Yes Vasopneumatic device: Yes For the Purpose of:: To decrease pain, To decrease swelling/inflammation, To increase ROM Please do not hesitate to contact me at [phone] by phone or Fax: if you have questions or concerns regarding this new plan of care! Sincerely, Eran Whatley DPT
--- NOTE | 2021-02-28 09:30 | HP.PTREVAL ---
URBANO EDWARDS, It has been my pleasure to treat LIBORIO FAJARDO over the last 24 visits for L TKA. Please see the progress note below for an update on the physical therapy plan of care! Subjective: Pt. reports overall doing well. No new issues. No pain with her L knee this weekend. No pain currently. Objective/Function: ROM: 0-0-123deg, MMT 5/5 throughout. Pt. is able to ambulate with normal gait pattern. TU.5sec without AD. STAIRS: normal reciprocal pattern both ascending and descending. Plan Plan: Pt. to attempt to complete all PT on own at this point in time. If I do not hear from her in 2-3 weeks I will DC back to physician. Balance/Gait/Functional tests - Balance/Special Test Scores Lower Extremity Functional Score: 63 TUG Test Time Seconds: 34 Tug Test: >30sec.=impaired mobility WOMAC Total Score: 4 WOMAC Percentage: 95.4600 Goals Goal 1:: LTG: pt. to be I with HEP. Goal Time Frame: 4-6 Weeks Goal Progress: Goal Met Goal 2:: STG: Pt. to achieve 0-0-120deg of passive L knee ROM. Goal Time Frame: 2 Weeks Goal Progress: Goal Met Goal 3:: LTG: Pt. to achieve 0-0-120deg of L knee active ROM. Goal Time Frame: 2-4 Weeks Goal Progress: Progressing Goal 4:: STG: pt. to have improved gait pattern with use of FWW, walking at least 500+ feet. (NEW GOAL 02/07/21)- Pt. to have no lateral L knee pain with all ambulation. Goal Time Frame: 2 Weeks Goal Progress: Goal Met Goal 5:: LTG: Pt. to have normalized gait pattern without use of AD and 0-1/10 pain in L knee. Goal Time Frame: 4-6 Weeks Goal Progress: Goal Met Goal 6:: LTG: Pt. to have increased LLE strength to at least 5-/5 throughout Goal Time Frame: 4-6 Weeks Goal Progress: Goal Met Anticipated Interventions Patient/Client Instruction: Educate patient on: Condition, Plan of Care, Risk Factors For the Purpose of:: To facilitate caregiver knowledge, To improve self management, To prevent re-injury, To improve ability to perform tasks related to life management, To improve tolerance to ADL's Therapeutic Exercise to Include: Strength training, Power training, Endurance training, Postural training, Flexibilty training, Passive ROM, Active ROM For the Purpose of:: To decrease pain, To decrease swelling/inflammation, To increase ROM, To improve nutrient delivery to tissue, To increase oxygenation perfusion, To improve muscle performance and motor function Cryotherapy (ice pack, ice massage): Yes Vasopneumatic device: Yes For the Purpose of:: To decrease pain, To decrease swelling/inflammation, To increase ROM Please do not hesitate to contact me at [phone] by phone or if you have questions or concerns regarding this new plan of care! Sincerely, DELICIA CardonaT
--- NOTE | 2021-04-18 14:38 | HP.PT.NRP ---
LIBORIO FAJARDO was seen in my office for initial evaluation on 12/22/20. The following Plan of Care was established for this patient: Initial Frequency: 3x /Week Initial Duration: 5 weeks Patient/Client Instruction: Educate patient on: Condition, Plan of Care, Risk Factors For the Purpose of:: To facilitate caregiver knowledge, To improve self management, To prevent re-injury, To improve ability to perform tasks related to life management, To improve tolerance to ADL's Therapeutic Exercise to Include: Strength training, Power training, Endurance training, Postural training, Flexibilty training, Passive ROM, Active ROM For the Purpose of:: To decrease pain, To decrease swelling/inflammation, To increase ROM, To improve nutrient delivery to tissue, To increase oxygenation perfusion, To improve muscle performance and motor function Cryotherapy (ice pack, ice massage): Yes Vasopneumatic device: Yes For the Purpose of:: To decrease pain, To decrease swelling/inflammation, To increase ROM This patient was last seen in our office 02/28/21. Pertinent comments regarding their Physical therapy will appear below: Pt. at her last visit was doing well. I have recently talked to her and she is back to gym exercises and walking routine without issues. She will be DC from PT at this point in time. At this point I will be discontinuing this patient from physical therapy. I would be happy to see this patient again in the future if found appropriate by the physician. Thank you! DELICIA CardonaT Balance/Gait/Functional tests - Balance/Special Test Scores Lower Extremity Functional Score: 63 TUG Test Time Seconds: 34 Tug Test: >30sec.=impaired mobility WOMAC Total Score: 4 WOMAC Percentage: 95.4600
== END 2021-02-28 19:00 | disposition home or self-care (01) ==
LOC: PT 09:00
PROVIDERS: PCP Internal Medicine
DX: M06.9 Rheumatoid arthritis, unspecified (principal)
CPT/HCPCS: 97110; 97161; 97164

== ENCOUNTER → 2021-04-18 09:02 | Outpatient (CLI) | payer MEDICARE, OTHER, SELFPAY ==
[2021-04-18 10:07] LABS: Absolute Lymphocyte Count 1.65 X10^3/uL (0.83-4.51); Absolute Neutrophil Count 2.8 X10^3/uL (2.0-7.7); Basophil# 0.04 X10^3/uL; Basophil% 0.8 % (0-1); Eosinophil# 0.12 X10^3/uL; Eosinophils% 2.4 % (0-5); Hematocrit 45.1 % (37-47); Hemoglobin 15.3 g/dL (12.0-15.0); Lymphocyte # 1.65 X10^3/ul (0.83-4.51); Lymphocyte % 33.6 % (19-41); Mean Corp Hgb Conc 33.9 g/dL (32-36); Mean Corpuscular Hgb 29.3 pg (27.0-32.0); Mean Corpuscular Volume 86.2 fL (81-99); Mean Platelet Vol. 11.1 fl (6.2-12.0); Monocyte# 0.29 X10^3/uL; Monocyte% 5.9 % (0-10); NRBC Flagged by Analyzer 0 % (0-5); Neutrophil % 57.1 % (47-70); Platelet Count 270 K/mm3 (150-450); RBC Distribution Width CV 13.2 % (11.6-14.6); RBC Distribution Width SD 41.1 fl (35.1-43.9); Red Blood Count 5.23 M/mm3 (4.2-5.4); White Blood Count 4.9 K/mm3 (4.4-11.0)
[2021-04-18 10:46] LABS: AST(SGOT) 17 U/L (15-37); Alanine Aminotransfer ALT/SGPT 19 U/L (13-56); Albumin, Serum 3.6 g/dL (3.2-5.0); Alkaline Phosphatase 54 U/L (45-117); Anion Gap 7 (5-15); BUN 14 mg/dL (7-18); BUN/Creat Ratio 18.3 RATIO (10-20); Calcium,Total 9.3 mg/dL (8.5-10.1); Chloride 107 mmol/L (98-107); Creatinine, Serum 0.76 mg/dL (0.55-1.02); EST Glomerular Filtration Rate 79 mL/min (>60); Est Glom Filt Rate - Afr Amer 95 mL/min (>60); Globulin 3.6 g/dL (2.2-4.2); Glucose 93 mg/dL (74-106); Potassium 3.7 mmol/L (3.5-5.1); Protein, Total 7.2 g/dL (6.4-8.2); Sodium Level 139 mmol/L (136-145)
== END ==
PROVIDERS: PCP Internal Medicine; Referring Provider Internal Medicine Rheumatology; Visit Provider Internal Medicine Rheumatology
DX: M06.00 Rheumatoid arthritis without rheumatoid factor, unspecified site (principal); Z79.899 Other long term (current) drug therapy; M16.11 Unilateral primary osteoarthritis, right hip; M17.0 Bilateral primary osteoarthritis of knee; M18.12 Unilateral primary osteoarthritis of first carpometacarpal joint, left hand; M81.0 Age-related osteoporosis without current pathological fracture; M47.892 Other spondylosis, cervical region; M47.897 Other spondylosis, lumbosacral region; M50.30 Other cervical disc degeneration, unspecified cervical region; E78.5 Hyperlipidemia, unspecified; G47.33 Obstructive sleep apnea (adult) (pediatric)
CPT/HCPCS: 36415; 80053; 85025

== ENCOUNTER 2021-05-25 17:31 | Outpatient (CLI) | payer MEDICARE, OTHER, SELFPAY ==
[2021-05-25 17:42] VITALS: BP 163/94; PULSE 79; RESP 16; TEMP 36.5; O2SAT 98; BMI 24.0
[2021-05-25] MEDS: 0.9% Saline Lock 10 ML Syringe IV (17:46)
[2021-05-25 18:27] VITALS: BP 146/88; PULSE 67; RESP 16; TEMP 37.1; O2SAT 97
[2021-05-25 19:18] VITALS: BP 154/83; PULSE 66; RESP 16; TEMP 37; O2SAT 100
== END 2021-05-25 19:25 | disposition home or self-care (01) ==
LOC: MS3OUT 17:35 → MS3 17:36
PROVIDERS: PCP Internal Medicine; Referring Provider Nurse Practitioner Adult Health; Visit Provider Nurse Practitioner Adult Health
DX: Z23 Encounter for immunization (principal); U07.1 COVID-19
CPT/HCPCS: J7050; M0245; Q0245; A4216

== ENCOUNTER 2021-07-19 08:23 | Outpatient (CLI) | payer MEDICARE, OTHER, SELFPAY ==
[2021-07-19 09:54] LABS: Absolute Lymphocyte Count 2.07 X10^3/uL (0.83-4.51); Absolute Neutrophil Count 1.8 X10^3/uL (2.0-7.7); Basophil# 0.05 X10^3/uL; Basophil% 1.1 % (0-1); Eosinophil# 0.22 X10^3/uL; Eosinophils% 4.8 % (0-5); Hematocrit 45.8 % (37-47); Hemoglobin 15.4 g/dL (12.0-15.0); Lymphocyte # 2.07 X10^3/ul (0.83-4.51); Lymphocyte % 45.2 % (19-41); Mean Corp Hgb Conc 33.6 g/dL (32-36); Mean Corpuscular Hgb 29.6 pg (27.0-32.0); Mean Corpuscular Volume 88.1 fL (81-99); Mean Platelet Vol. 11.1 fl (6.2-12.0); Monocyte# 0.44 X10^3/uL; Monocyte% 9.6 % (0-10); NRBC Flagged by Analyzer 0 % (0-5); Neutrophil % 39.3 % (47-70); Platelet Count 241 K/mm3 (150-450); RBC Distribution Width CV 13.6 % (11.6-14.6); RBC Distribution Width SD 43.3 fl (35.1-43.9); White Blood Count 4.6 K/mm3 (4.4-11.0)
[2021-07-19 10:33] LABS: AST(SGOT) 22 U/L (15-37); Alanine Aminotransfer ALT/SGPT 25 U/L (13-56); Albumin, Serum 3.7 g/dL (3.2-5.0); Alkaline Phosphatase 60 U/L (45-117); Anion Gap 6 (5-15); BUN 17 mg/dL (7-18); BUN/Creat Ratio 21.8 RATIO (10-20); Calcium,Total 9.3 mg/dL (8.5-10.1); Chloride 105 mmol/L (98-107); Creatinine, Serum 0.78 mg/dL (0.55-1.02); EST Glomerular Filtration Rate 77 mL/min (>60); Est Glom Filt Rate - Afr Amer 93 mL/min (>60); Globulin 3.6 g/dL (2.2-4.2); Glucose 73 mg/dL (74-106); Protein, Total 7.3 g/dL (6.4-8.2); Sodium Level 139 mmol/L (136-145)
== END 2021-07-19 23:59 | disposition home or self-care (01) ==
LOC: MTLAB 08:26
PROVIDERS: PCP Internal Medicine; Referring Provider Internal Medicine Rheumatology; Visit Provider Internal Medicine Rheumatology
DX: M06.042 Rheumatoid arthritis without rheumatoid factor, left hand (principal); M16.11 Unilateral primary osteoarthritis, right hip; M17.0 Bilateral primary osteoarthritis of knee; M18.12 Unilateral primary osteoarthritis of first carpometacarpal joint, left hand; M81.0 Age-related osteoporosis without current pathological fracture; M47.897 Other spondylosis, lumbosacral region; M47.892 Other spondylosis, cervical region; M50.30 Other cervical disc degeneration, unspecified cervical region; E78.5 Hyperlipidemia, unspecified; G47.33 Obstructive sleep apnea (adult) (pediatric); Z79.899 Other long term (current) drug therapy
CPT/HCPCS: 36415; 80053; 85025

== ENCOUNTER 2021-08-04 10:18 | Outpatient (CLI) | payer MEDICARE, SELFPAY ==
--- NOTE | 2021-08-04 10:22 | BI_ITS ---
MAMMOGRAPHY - BILATERAL SCREENING REASON FOR EXAM: Female, 75 years old. Routine annual screening examination. PERTINENT HISTORY: Non-contributory. Remote left excisional breast biopsy. TECHNIQUE: Digital bilateral breast jackelin (3D mammographic acquisition) in the CC and MLO projections. 2-D mediolateral oblique (MLO) and craniocaudad (CC) views of both breasts were obtained. CAD: Full Field Digital Mammography with Computer Added Detection was performed. COMPARISON: Comparison is made with prior study dated 08/03/2020 and 07/30/2019. FINDINGS: Breast Composition: The breasts are heterogeneously dense, which may obscure small masses. There are no dominant masses or suspicious calcifications. No other significant abnormalities are identified. There has been no significant change since the prior study. BI/SCRN MAMM (CAD)W/JACKELIN BILAT IMPRESSION: Stable bilateral screening mammogram. Yearly follow-up mammogram recommended. (A) ASSESSMENT CATEGORY: BIRADS Category 1: Negative. A letter regarding these results will be sent to the patient by the facility within 30 days. Approximately 10% of breast cancers are not detected by mammography. A normal mammogram should not delay biopsy of a clinically suspicious abnormality. [id number] Electronically Signed: Yaya Bartlett MD at 12:01 EST ,
== END 2021-08-04 23:59 | disposition home or self-care (01) ==
LOC: OPBI 10:20
PROVIDERS: PCP Internal Medicine; Visit Provider Internal Medicine
DX: Z12.31 Encounter for screening mammogram for malignant neoplasm of breast (principal)
CPT/HCPCS: 77063; 77067

== ENCOUNTER → 2021-10-11 | Outpatient (CLI) | payer MEDICARE, SELFPAY ==
[2021-10-11 09:55] LABS: Absolute Lymphocyte Count 2.24 X10^3/uL (0.83-4.51); Absolute Neutrophil Count 1.6 X10^3/uL (2.0-7.7); Basophil# 0.06 X10^3/uL; Basophil% 1.3 % (0-1); Eosinophil# 0.22 X10^3/uL; Eosinophils% 4.9 % (0-5); Hematocrit 46.7 % (37-47); Hemoglobin 15.9 g/dL (12.0-15.0); Lymphocyte # 2.24 X10^3/ul (0.83-4.51); Lymphocyte % 49.9 % (19-41); Mean Corpuscular Hgb 30.2 pg (27.0-32.0); Mean Corpuscular Volume 88.8 fL (81-99); Mean Platelet Vol. 10.5 fl (6.2-12.0); Monocyte# 0.35 X10^3/uL; Monocyte% 7.8 % (0-10); NRBC Flagged by Analyzer 0 % (0-5); Neutrophil # 1.61 X10^3/uL (2.7-7.7); Neutrophil % 35.9 % (47-70); Platelet Count 255 K/mm3 (150-450); RBC Distribution Width CV 13.2 % (11.6-14.6); RBC Distribution Width SD 42.7 fl (35.1-43.9); Red Blood Count 5.26 M/mm3 (4.2-5.4); White Blood Count 4.5 K/mm3 (4.4-11.0)
[2021-10-11 10:11] LABS: Vitamin D,25 Hydroxy 54.2 ng/mL
[2021-10-11 10:32] LABS: ALB/GLOB Ratio 1.1 RATIO (0.9-2.4); AST(SGOT) 21 U/L (15-37); Alanine Aminotransfer ALT/SGPT 24 U/L (13-56); Albumin, Serum 3.7 g/dL (3.2-5.0); Alkaline Phosphatase 45 U/L (45-117); Anion Gap 6 (5-15); BUN 16 mg/dL (7-18); BUN/Creat Ratio 19.6 RATIO (10-20); Calcium,Total 9.2 mg/dL (8.5-10.1); Chloride 105 mmol/L (98-107); Cholesterol 225 mg/dL (200); Creatinine, Serum 0.82 mg/dL (0.55-1.02); EST Glomerular Filtration Rate 73 mL/min (>60); Est Glom Filt Rate - Afr Amer 88 mL/min (>60); Globulin 3.4 g/dL (2.2-4.2); Glucose 85 mg/dL (74-106); High Density Lipoprotein 60 mg/dL; Potassium 3.9 mmol/L (3.5-5.1); Protein, Total 7.1 g/dL (6.4-8.2); Sodium Level 139 mmol/L (136-145); Thyroid Stim Hormone (TSH) 4.17 uIU/mL (0.358-3.74); Triglycerides 136 mg/dL; Very Low Density Lipoprotein 27 mg/dL (5-40)
== END | disposition home or self-care (01) ==
LOC: MTLAB 07:05
PROVIDERS: PCP Internal Medicine; Referring Provider Internal Medicine; Visit Provider Internal Medicine
DX: M06.042 Rheumatoid arthritis without rheumatoid factor, left hand (principal); Z79.899 Other long term (current) drug therapy; M16.11 Unilateral primary osteoarthritis, right hip; M17.0 Bilateral primary osteoarthritis of knee; M18.12 Unilateral primary osteoarthritis of first carpometacarpal joint, left hand; M81.0 Age-related osteoporosis without current pathological fracture; M47.897 Other spondylosis, lumbosacral region; M47.892 Other spondylosis, cervical region; M50.30 Other cervical disc degeneration, unspecified cervical region; E78.5 Hyperlipidemia, unspecified; G47.33 Obstructive sleep apnea (adult) (pediatric); R79.89 Other specified abnormal findings of blood chemistry; E55.9 Vitamin D deficiency, unspecified; E78.00 Pure hypercholesterolemia, unspecified
CPT/HCPCS: 36415; 80053; 80061; 82306; 84443; 85025

== ENCOUNTER 2021-12-05 16:42 | Observation (INO) | payer MEDICARE, OTHER, SELFPAY ==
[2021-12-05] VITALS (8 sets, daily range): BP systolic 127–168; BP diastolic 76–101; PULSE 67–87; RESP 14–18; TEMP 36.4–37.2; O2SAT 96–100; BMI 24.1
--- NOTE | 2021-12-05 17:16 | EKG12_ITS ---
Test Reason : cp Blood Pressure : / mmHG Vent. Rate : 079 BPM Atrial Rate : 079 BPM P-R Int : 148 ms QRS Dur : 082 ms QT Int : 364 ms P-R-T Axes : 060 027 080 degrees QTc Int : 417 ms Normal sinus rhythm Nonspecific T wave abnormality Abnormal ECG Confirmed by AGNES GAN, KEVON ([id number]), makeup editor DIOR LIM ([id number]) on 12/07/2021 10:43:34 AM Referred By: Confirmed By:KEVON ALARCON MD
--- NOTE | 2021-12-05 17:33 | EKG12_ITS ---
Test Reason : AM EKG Blood Pressure : / mmHG Vent. Rate : 063 BPM Atrial Rate : 063 BPM P-R Int : 162 ms QRS Dur : 090 ms QT Int : 446 ms P-R-T Axes : 059 017 091 degrees QTc Int : 456 ms Normal sinus rhythm ST & T wave abnormality, consider lateral ischemia Abnormal ECG Confirmed by AGNES GAN, KEVON ([id number]), editorial specialist DIOR LIM ([id number]) on 12/07/2021 10:52:01 AM Referred By: Confirmed By:KEVON ALARCON MD
[2021-12-05] MEDS: Aspirin 81 MG TAB.CHEW 324 MG PO (17:41)
[2021-12-05 17:50] LABS: Absolute Lymphocyte Count 1.73 X10^3/uL (0.83-4.51); Absolute Neutrophil Count 5.5 X10^3/uL (2.0-7.7); Basophil# 0.06 X10^3/uL; Basophil% 0.8 % (0-1); Eosinophil# 0.02 X10^3/uL; Eosinophils% 0.3 % (0-5); Hematocrit 44.2 % (37-47); Hemoglobin 14.9 g/dL (12.0-15.0); Lymphocyte # 1.73 X10^3/ul (0.83-4.51); Lymphocyte % 22.1 % (19-41); Mean Corp Hgb Conc 33.7 g/dL (32-36); Mean Corpuscular Hgb 30.2 pg (27.0-32.0); Mean Corpuscular Volume 89.7 fL (81-99); Mean Platelet Vol. 10.8 fl (6.2-12.0); Monocyte# 0.46 X10^3/uL; Monocyte% 5.9 % (0-10); NRBC Flagged by Analyzer 0 % (0-5); Neutrophil # 5.53 X10^3/uL (2.7-7.7); Neutrophil % 70.6 % (47-70); Platelet Count 264 K/mm3 (150-450); RBC Distribution Width CV 13.5 % (11.6-14.6); RBC Distribution Width SD 43.8 fl (35.1-43.9); Red Blood Count 4.93 M/mm3 (4.2-5.4); White Blood Count 7.8 K/mm3 (4.4-11.0)
[2021-12-05 18:08] LABS: Anion Gap 9 (5-15); BUN 22 mg/dL (7-18); BUN/Creat Ratio 21.6 RATIO (10-20); Calcium,Total 9.8 mg/dL (8.5-10.1); Chloride 105 mmol/L (98-107); Creatinine, Serum 1.02 mg/dL (0.55-1.02); EST Glomerular Filtration Rate 56 mL/min (>60); Est Glom Filt Rate - Afr Amer 68 mL/min (>60); Estimated Creatinine Clearance 36.51 ml/min; Glucose 99 mg/dL (74-106); Potassium 4.2 mmol/L (3.5-5.1); Sodium Level 140 mmol/L (136-145); Troponin-I HS 81 pg/mL (3.0-54.0)
--- NOTE | 2021-12-05 18:15 | RAD_ITS ---
STUDY: AP PORTABLE UPRIGHT CHEST X-RAY OF 1816 HOURS ON 12/05/2021 REASON FOR EXAM: 76-year-old female with chest pain. TECHNIQUE: A single view portable AP upright chest x-ray was performed per protocol. COMPARISON: 01/14/2016. FINDINGS: Mild demineralization. Left ventricular cardiac configuration without cardiomegaly. No. No pulmonary infiltrates, atelectasis, effusion, or pulmonary mass lesions. No pneumonia, pneumonitis or bronchitis. No subdiaphragmatic air. No interval change since previous study of 01/14/2016. RAD/Chest 1 View (Portable) IMPRESSION: 1. Left ventricular cardiac configuration without cardiomegaly or heart failure. 2. No other active cardiopulmonary disease. 3. No pneumonia, pneumonitis, bronchitis, or pulmonary mass lesions 4. No interval change since the previous study of 01/14/2016. Electronically Signed: Carmelo Mcarthur MD at 18:43 EDT ,
--- NOTE | 2021-12-05 18:15 | EDS_ITS ---
HPI History of Present Illness Chief Complaint: Chest Pain Informant: patient and spouse/S.O. Onset/Context/Timing Onset: Today and Weeks Activity at onset: sudden Timing: Intermittent Quality: Positive for Heaviness and Pressure Location: Substernal and Left Chest Current Severity: Gone Maximum Severity: Mild Worsened By: Exertion Relieved By: Rest Associated Symptoms: Positive for Nausea, Dyspnea and Lightheadedness; Negative for Cough, Fever or Acid Reflux Narrative Narrative: 76-year-old active and healthy female with history of rheumatoid arthritis and high cholesterol. The last several weeks with exertion she has had exertional chest pain. At times it does radiate to her jaw. She describes it as a pressure. At times she gets short of breath and dizzy. It has occasionally gone to her left arm. It has occurred while she is biking specifically uphill. Or walking up hill. It gets better if she rests. She has no cardiac history. She did have PVCs about 4 to 5 years ago had a negative cardiac catheterization at that time. She is a non-smoker. No history of DVT or PE or risk factors. Prior Similar Symptoms: No Recent Illness/Hospitalization: No CVD Risk Factors: Positive for Hypercholesterolemia; Negative for Hypertension, Diabetes or Smoking PE Risk Factors: Negative for Recent Travel/Surgery, Recent Immobilization, Prior DVT or PE, Cancer or OCP + Smoking + >/=35 TAD Risk Factors: Negative for Marfan's Syndrome or Hypertension [facility] Medical History (Updated 12/05/21 @ 22:[address] Oliver Thompson MD) Rheumatoid arthritis Home Medications abatacept 125 mg/mL subcutaneous syringe (Orencia) 125 mg SQ WE RA 08/18/16 [History Last Taken 11/30/21] calcium carbonate 600 mg-vitamin D3 5 mcg (200 unit) tablet (Calcium 600 + D(3)) 1 ea PO BID supplement 08/18/16 [History Last Taken 12/05/21] folic acid 1 mg tablet 2 mg PO DAILY supplement 08/18/16 [History Last Taken 12/05/21] methotrexate sodium 2.5 mg tablet 20 mg PO WE rheumatoid arthritis 08/18/16 [History Last Taken 11/30/21] tramadol 50 mg tablet 1 - 2 tab PO Q6H PRN PRN Pain 08/18/16 [History Last Taken Unknown] denosumab 60 mg/mL subcutaneous syringe (Prolia) 60 mg subcut [id number] bone health 04/03/18 [History Last Taken 06/30/20] rizatriptan 10 mg tablet 10 mg PO Q2H PRN MIGRAINE SYMPTOMS #10 tabs 07/05/20 [Rx Last Taken Unknown] tizanidine 2 mg tablet 2 mg PO Q8H PRN PRN MUSCLE STRAIN, SPASMS #20 tabs 07/05/20 [Rx Last Taken Unknown] ezetimibe 10 mg tablet 10 mg PO DAILY . 05/25/21 [History Last Taken 12/05/21] prednisone 5 mg tablet 10 mg PO DAILY PRN PRN . 05/25/21 [History Last Taken Unknown] ascorbic acid (vitamin C) 500 mg tablet (Vitamin C) 500 mg PO DAILY 12/05/21 [History Last Taken 12/05/21] Allergy/AdvReac Type Severity Reaction Status Date / Time cat dander Allergy Unknown Verified 08/18/16 15:38 hydroxychloroquine AdvReac photosensit Verified 07/02/20 14:57 [From Plaquenil] ivity niacin AdvReac Rash Verified 07/02/20 14:57 Penicillins AdvReac Rash Verified 07/02/20 14:57 Family History Mother Hypertension Sister Lupus Surgical History History of section History of hernia repair history of wrist surgery Social History Smoking Status: Never smoker alcohol intake: current alcohol intake frequency: 0-2 drinks per day Alcohol type: wine ROS ROS ED ROS Narrative Denies recent illness. Review of Systems ROS Unobtainable: Denies due to encephalopathy Constitutional Constitutional ED: Denies chills Eyes Eyes: Denies none ENT ENT ED: Denies ear pain Cardiovascular Cardiovascular: Reports as per HPI and chest pain Respiratory/Chest Respiratory/Chest: Reports dyspnea; Denies cough Gastrointestinal Gastrointestinal: Denies abdominal pain Genitourinary Genitourinary ED: Denies dysuria Musculoskeletal Musculoskeletal: Denies arthralgias Integumentary Denies abscess Neurologic Neurologic: Denies headache(s) Psychiatric Psychiatric: Denies anxiety Endocrine Endocrinology: Denies cold intolerance Hematologic/Lymphatic Hematologic/Lymphatic: Denies easy bleeding Allergic/Immunologic Allergic/Immunologic ED: Denies mouth swelling EXAM Physical Exam Narrative Exam Narrative: 76 yo female. Vital signs are stable afebrile. Pulse ox 97% on room air no signs hypoxia. H EENT exam unremarkable. Neck nontender. Lungs clear to auscultation. Heart regular rhythm no murmur. Chest wall nontender. Abdomen soft nontender. Moving all 4 extremities. Calves are nontender without edema or cords. Equal symmetrical radial pulses. Neurologically she is awake and alert. Exam benign. No reproducible pain. Const Vital Signs: 12/05/21 16:43 12/05/21 17:03 12/05/21 17:03 Temperature 98.3 F Temperature Source Temporal Pulse Rate 87 76 Respiratory Rate 18 15 Respiratory Effort Normal Blood Pressure 138/96 H 127/91 H Blood Pressure Mean 110 103 Pulse Ox 97 96 Oxygen Delivery Method Room Air Room Air 12/05/21 17:35 12/05/21 18:00 Temperature Temperature Source Pulse Rate 71 Respiratory Rate 14 Respiratory Effort Blood Pressure 140/85 H Blood Pressure Mean 103 Pulse Ox 99 98 Oxygen Delivery Method Room Air Room Air Positive well nourished; Negative for obese, cachectic, contractures or unkempt General Appearance ED: Negative for unkempt, cachectic or contractures Nutritional Appearance: Negative for cachectic or obese HEENT Reports moist mucous membranes normocephalic; Negative for atraumatic or trauma Eyes PERRL and EOMs intact bilaterally Neck no lymphadenopathy, supple and no JVD General: Negative for tenderness Chest Wall inspection of chest normal and palpation of chest normal Chest: Negative for tenderness Resp normal respiratory effort and clear to auscultation bilaterally Effort and Inspection: Negative for respiratory distress Auscultation: Negative for rales, rhonchi or wheezes Cardio regular rate, regular rhythm, S1 normal heart sound, S2 normal heart sound and no murmurs Rate: Negative for bradycardia Rhythm: Negative for abnormal rhythm GI normal to inspection, nondistended, normoactive bowel sounds, soft to palpation, non-tender, non-distended and no masses Auscultation: Negative for hyperactive bowel sounds Palpation: Negative for splenomegaly or mass Back/Spine no CVA tenderness Extremity normal to inspection General Extremety ED: Negative for edema or pulses abnormal General Extremity: Negative for edema or pulses abnormal Neuro oriented x3 and CN's II-XII intact bilaterally Sensorium / Orientation: awake, alert, oriented to person, oriented to place and oriented to time; Negative for confused, lethargic or stuporous Motor Exam: strength 5/5 throughout Psych mental status grossly normal Appearance: Negative for unkempt Attitude: No agitated Mood & Affect: Negative for depressed Skin no rashes or lesions noted and no wounds General Skin Exam: Negative for jaundice Rashes: No rashes noted Trauma: Negative for abrasion Heart Score History: Highly Suspicious ECG: Normal Age: >/= 65 years Risk Factors: No Risk Factors Troponin: >1 - <3 Normal Limit Score: 5 MDM MDM MDM Narrative Medical decision making narrative: 36-year-old female with a concerning story for exertional chest pain while biking up a hill and/or walking up an incline. She is a very healthy 76-year-old but the story with exertional pain that improves with rest is concerning for underlying cardiac angina. She had a negative heart cath 4 years ago at that time was having PVCs and no chest pain. She undergo cardiac work- up. 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 The hospitalist and/or cardiology can determine if they want to do provocative stress testing or go straight to a heart catheterization due to her symptoms. Lab Data Attestation: I reviewed the patient's lab results. Lab results narrative: CBC normal white count of 7. H&H 14 and 44. Platelets normal. Electrolytes unremarkable. Gap of 9. BUN of 22 creatinine of 1. Glucose 99. Troponin 81. Which is elevated above normal. Chest x-ray unremarkable. Normal cardiac silhouette. Labs: Laboratory Results - last 24 hr 12/05/21 12/05/21 17:15 17:15 WBC 7.8 RBC 4.93 Hgb 14.9 Hct 44.2 MCV 89.7 MCH 30.2 MCHC 33.7 RDW Std Deviation 43.8 RDW Coeff of Dejah 13.5 Plt Count 264 MPV 10.8 Immature Gran % (Auto) 0.300 Neut % (Auto) 70.6 H Lymph % (Auto) 22.1 [place] % (Auto) 5.9 Eos % (Auto) 0.3 Baso % (Auto) 0.8 Absolute Neuts (auto) 5.5 Absolute Lymphs (auto) 1.73 Nucleated RBC % 0 Sodium 140 Potassium 4.2 Chloride 105 Carbon Dioxide 26.0 Anion Gap 9 BUN 22 H Creatinine 1.02 Estim Creat Clear Calc 36.51 Est GFR (MDRD) Af Amer 68 Est GFR (MDRD) Non-Af 56 L BUN/Creatinine Ratio 21.6 H Glucose 99 Calcium 9.8 Troponin I High Sens 81 H Radiography Chest X-Ray - ED: 1 View, Read by ED Physician, Read by Radiologist, Heart, Martha gs, Mediastinum, Bony Structures, No Acute Disease and Chronic Changes Diagnostic Testing: Clinical Impression(s) from Imaging Studies Chest X-Ray 12/05/21 18:15 IMPRESSION: 1. Left ventricular cardiac configuration without cardiomegaly or heart failure. 2. No other active cardiopulmonary disease. 3. No pneumonia, pneumonitis, bronchitis, or pulmonary mass lesions 4. No interval change since the previous study of 01/14/2016. Electronically Signed: Carmelo Mcarthur MD at 18:43 EDT , Chest x-ray, portable, single view shows no acute abnormality. Normal cardiac silhouette mediastinum. Interpreted both by myself and the radiologist. Rhythm Strip Rhythm Strip: Sinus Rhythm Rate: 79 Ectopy: None EKG Initial EKG: Attestation: I personally reviewed and interpreted this EKG as follows: Interpretation: Sinus Rhythm and No Acute Injury Pattern Comments: Normal sinus rhythm rate of 79 no acute signs of NE or ischemia. Discharge Plan Dx/Rx/DC Orders Clinical Impression: Chest pain, Hx of rheumatoid arthritis, Elevated troponin Disposition Disposition: Acute Care Hospital [facility] Discharge Date/Time: 12/05/21 18:51
--- NOTE | 2021-12-05 18:26 | PCM.HP.STD ---
[facility] - General General Date of Admission: 12/05/21 Date of Service: 12/05/21 Chief Complaint: Chest pain HPI Narrative LIBORIO GENTILE, is a 76 F with past medical history significant for rheumatoid arthritis, dyslipidemia who presented with chest pain. Patient states she has noticed increasing chest pain with activity over the past couple of weeks. On the afternoon of her presentation she biked for almost 25 miles. She did notice increasing left-sided chest discomfort radiating to her neck. She also did experience lightheadedness and jaw pain. Presented to the emergency department as a result. Per patient she underwent left heart catheterization 5 years prior which did not demonstrate any hemodynamically significant lesions. Her initial set of cardiac enzymes came back slightly elevated at 81. EKG unremarkable. Blood pressure was also elevated (140/85)?patient not a known hypertensive. Admitted to a monitored bed for further management [facility] [place] Medical History Rheumatoid arthritis Home Medications abatacept 125 mg/mL subcutaneous syringe (Orencia) 125 mg SQ QWEEK RA 08/18/16 [History Last Taken 06/23/20] calcium carbonate 600 mg-vitamin D3 5 mcg (200 unit) tablet (Calcium 600 + D(3)) 1 ea PO BID supplement 08/18/16 [History Last Taken 07/01/20 17:00] folic acid 1 mg tablet 1 mg PO SUMOTUTHFRSA supplement 08/18/16 [History Last Taken 07/01/20] methotrexate sodium 2.5 mg tablet 20 mg PO WE rheumatoid arthritis 08/18/16 [History Last Taken Unknown] tramadol 50 mg tablet 1 - 2 tab PO Q6H PRN PRN Pain 08/18/16 [History Last Taken Unknown] denosumab 60 mg/mL subcutaneous syringe (Prolia) 60 mg subcut [id number] bone health 04/03/18 [History Last Taken 06/30/20] Valacyclovir Hcl [Valtrex] 1,000 mg PO TID #21 tabs 07/05/20 [Rx Last Taken Unknown] rizatriptan 10 mg tablet 10 mg PO Q2H PRN MIGRAINE SYMPTOMS #10 tabs 07/05/20 [Rx Last Taken Unknown] tizanidine 2 mg tablet 2 mg PO Q8H PRN PRN MUSCLE STRAIN, SPASMS #20 tabs 07/05/20 [Rx Last Taken Unknown] ezetimibe 10 mg tablet 10 mg PO DAILY 05/25/21 [History Last Taken Unknown] prednisone 5 mg tablet See Protocol PO BID 05/25/21 [History Last Taken Unknown] Allergy/AdvReac Type Severity Reaction Status Date / Time cat dander Allergy Unknown Verified 08/18/16 15:38 hydroxychloroquine AdvReac photosensit Verified 07/02/20 14:57 [From Plaquenil] ivity niacin AdvReac Rash Verified 07/02/20 14:57 Penicillins AdvReac Rash Verified 07/02/20 14:57 Family History Mother Hypertension Sister Lupus Surgical History History of section History of hernia repair history of wrist surgery Social History Smoking Status: Never smoker alcohol intake: current alcohol intake frequency: 0-2 drinks per day Alcohol type: wine ROS ROS Narrative GENERAL: denies fever, chills, night sweats, weight loss, anorexia HEENT: denies headache, sinus congestion, or drainage, dysphagia RESPIRATORY: dyspnea on exertion CARDIAC: chest pain, GASTROINTESTINAL: denies abdominal pain, nausea, vomiting, melena, GENITOURINARY: denies dysuria, urgency, frequency, heamaturia EXTREMITY: denies swelling MUSCULOSKELETAL: denies current joint pain or tenderness NEUROLOGIC: denies focal numbness, weakness, tingling HEMATOLOGIC: denies easy bruising and/or hemorrhage INTEGUMENT: denies rashes PSYCHIATRIC: denies suicidal or homicidal ideation Vital Signs Vital Signs Vital Signs: 12/05/21 16:43 12/05/21 17:03 12/05/21 17:03 Temperature 98.3 F Temperature Source Temporal Pulse Rate 87 76 Respiratory Rate 18 15 Respiratory Effort Normal Blood Pressure 138/96 H 127/91 H Blood Pressure Mean 110 103 Pulse Ox 97 96 Oxygen Delivery Method Room Air Room Air 12/05/21 17:35 12/05/21 18:00 Temperature Temperature Source Pulse Rate 71 Respiratory Rate 14 Respiratory Effort Blood Pressure 140/85 H Blood Pressure Mean 103 Pulse Ox 99 98 Oxygen Delivery Method Room Air Room Air Weight Weight: 58.06 kg Body Mass Index (BMI) 24.1 Physical Exam Narrative GENERAL: cooperative HEENT: Atraumatic; EYES; Anicteric, Normal Conjunctiva NECK; supple, normal thyroid, RESPIRATORY: Diminished to auscultation CARDIOVASCULAR: Regular S1 S2, GI: soft, normoactive bowel sounds, : No Renal angle tenderness; EXTREMITIES: No edema, no clubbing, MUSCULOSKELETAL: no muscle wasting NEURO: Awake; no lateralizing signs. SKIN: No Rash PSYCH; Flat affect Results Lab / Micro Data Result Diagrams: 12/05/21 17:15 12/05/21 17:15 Labs: Laboratory Results - last 24 hr 12/05/21 17:15: WBC 7.8, RBC 4.93, Hgb 14.9, Hct 44.2, MCV 89.7, MCH 30.2, MCHC 33.7, RDW Std Deviation 43.8, RDW Coeff of Dejah 13.5, Plt Count 264, MPV 10.8, Immature Gran % (Auto) 0.300, Neut % (Auto) 70.6 H, Lymph % (Auto) 22.1, [place] % (Auto) 5.9, Eos % (Auto) 0.3, Baso % (Auto) 0.8, Absolute Neuts (auto) 5.5, Absolute Lymphs (auto) 1.73, Nucleated RBC % 0 12/05/21 17:15: Sodium 140, Potassium 4.2, Chloride 105, Carbon Dioxide 26.0, Anion Gap 9, BUN 22 H, Creatinine 1.02, Estim Creat Clear Calc 36.51, Est GFR (MDRD) Af Amer 68, Est GFR (MDRD) Non-Af 56 L, BUN/Creatinine Ratio 21.6 H, Glucose 99, Calcium 9.8, Troponin I High Sens 81 H Assessment & Plan Assessment/Plan (1) Chest pain: PLAN: Plan Patient is a 76-year-old lady presenting with exertional chest pain 1. Exertional chest pain Patient has been admitted to a monitored bed plan is to rule out NH with serial cardiac enzymes. Her initial set of troponin came back slightly elevated if further elevated. If there is no further increase patient to undergo nuclear stress test otherwise cardiology be consulted if patient troponin continues to rise 3. Dyslipidemia ? Patient is on Zetia added continue 3. Rheumatoid arthritis ? Patient is on methotrexate as well as Orencia and prednisone 4. Osteoporosis ? Patient is on denosumab every 6 months 5. DVT prophylaxis ? SC Lovenox Charges/Coding Visit Charges OBSV E&M: 50118 Initial observation care L3
[2021-12-05 19:46] LABS: Troponin-I HS 83 pg/mL (3.0-54.0)
--- NOTE | 2021-12-05 20:00 | EKG12_ITS ---
Test Reason : CP ADMIT Blood Pressure : / mmHG Vent. Rate : 068 BPM Atrial Rate : 068 BPM P-R Int : 156 ms QRS Dur : 092 ms QT Int : 404 ms P-R-T Axes : 061 030 083 degrees QTc Int : 429 ms Normal sinus rhythm Nonspecific T wave abnormality Abnormal ECG Confirmed by AGNES GAN, KEVON ([id number]), editor farm journal DIOR LIM ([id number]) on 12/07/2021 11:01:48 AM Referred By: Confirmed By:KEVON ALARCON MD
--- NOTE | 2021-12-05 20:00 | ECHOCS_ITS ---
Reason For Study: CHEST PAIN Procedure This was a 2D Doppler, Color Flow transthoracic echocardiogram. Patient scanned supine due to recent heart cath. Exam performed portable in patient room. Left Ventricle Normal LV size. Mild concentric left ventricular hypertrophy. Left ventricular systolic function is normal. The estimated ejection fraction is 65 %. Stage 1 diastolic dysfunction. No regional wall motion abnormalities noted. Right Ventricle Normal RV size. Normal systolic function. Atria Normal left atrium. Normal right atrium. Mitral Valve Normal mitral valve. Tricuspid Valve Normal tricuspid valve. Unable to estimate RV systolic pressure due to insufficient tricuspid regurgitant envelope. Aortic Valve Normal aortic valve. Trisinus/trileaflet aortic valve. Trivial eccentric aortic valve insufficiency. Pulmonic Valve Normal pulmonic valve. Great Vessels Normal aortic root. The pulmonary artery is normal size. Inferior vena cava collapse with sniff. Pericardium/Pleural No pericardial effusion. MMode/2D Measurements & Calculations LVIDd: 3.3 cm IVSd: 1.4 cm CO(Teich): 1.9 l/min LVIDs: 1.8 cm LVPWd: 1.2 cm FS: 44.1 % Ao root diam: 3.1 cm LAV(MOD-sp2): 28.7 ml LVAd ap4: 13.1 cm2 LVLd ap4: 6.6 cm EDV(MOD-sp4): 23.0 ml EDV(sp4-el): 22.1 ml LVAs ap4: 6.6 cm2 LVLs ap4: 5.5 cm ESV(MOD-sp4): 7.2 ml ESV(sp4-el): 6.8 ml EF(MOD-sp4): 68.7 % EF(sp4-el): 69.4 % CO(MOD-sp4): 0.90 l/min SV(sp4-el): 15.3 ml LA dimension(2D): 3.2 cm SV(MOD-sp4): 15.8 ml Time Measurements MV dec time: 0.36 sec Doppler Measurements & Calculations MV E max rosmery: 59.2 cm/sec MV dec slope: 164.9 cm/sec2 Ao V2 max: 122.7 cm/sec MV A max rosmery: 77.9 cm/sec Ao max P.0 mmHg MV E/A: 0.76 Ao V2 mean: 86.5 cm/sec Ao mean P.5 mmHg Ao V2 VTI: 29.6 cm LV V1 max: 100.6 cm/sec PA V2 max: 83.3 cm/sec LV V1 max P.1 mmHg PA V2 mean: 60.9 cm/sec LV V1 mean P.2 mmHg LV V1 mean: 69.8 cm/sec LV V1 VTI: 25.9 cm ECHO/Echo Complete W/ Contrast Interpretation Summary Normal LV size. Mild concentric left ventricular hypertrophy. Left ventricular systolic function is normal. The estimated ejection fraction is 65 %. Stage 1 diastolic dysfunction. Ordering Physician: Richard Telles Referring Physician: MD Richard Telles MD Performed By: Widder, Krystyna, RCS
--- NOTE | 2021-12-05 20:09 | PCM.CONS.C ---
Assessment & Plan Assessment/Plan (1) Chest pain: PLAN: She presents with chest discomfort and shortness of breath which appears to be progressive over the last 2 to 3 months. She does keep a rather active exercise schedule but has been having some of this discomfort with exertion and then also occurring at more frequent episodes. Due to the above I would recommend foregoing stress testing and proceeding with a left heart catheterization. Depending on the findings further recommendations will be made. Of note is the fact that her blood pressure is also elevated and this could also be contributing to some of her symptomatology. Her shortness of breath could be an manifestation of diastolic dysfunction and this would need to be treated aggressively if her coronary anatomy is deemed to be unremarkable. There is benefits alternatives have been explained to her she understands and agrees to proceed. HPI Consult Data Date of Consult: 12/05/21 HPI Narrative HPI Narrative: LIBORIO GENTILE, is a 76 F who presents to the emergency room with increasing left-sided chest discomfort as well as shortness of breath associated with activity. She has also experienced occasional lightheadedness and presyncope. She says that the symptoms date back to September or October when she was exerting herself biking and it appears to be occurring more frequently and with less activity. She is also had it when she is going upstairs more recently. Of note is the fact that she actually teaches a spin class and she has realized that when her heart rate gets to about 70 to 75% of maximum predicted heart rate she does get rather short of breath. You remember she underwent a cardiac catheterization 5 years ago which did not demonstrate any hemodynamically significant lesions. At that time she was having premature atrial and ventricular complexes and these were managed expectantly and have since dissipated. She is not on medication for the above. She has also had mild nasal congestion over the last month or so. Her other past medical history significant for rheumatoid arthritis, left knee replacement and dyslipidemia. She is not a previously known hypertensive but her blood pressure in the emergency room was noted to be elevated and its been elevated on the floor. Her EKG demonstrated normal sinus rhythm with no acute changes. Cardiac enzymes were mildly elevated but not significantly remarkable. [facility]LY [facility] Medical History Rheumatoid arthritis Home Medications abatacept 125 mg/mL subcutaneous syringe (Orencia) 125 mg SQ WE RA 08/18/16 [History Last Taken 11/30/21] calcium carbonate 600 mg-vitamin D3 5 mcg (200 unit) tablet (Calcium 600 + D(3)) 1 ea PO BID supplement 08/18/16 [History Last Taken 12/05/21] folic acid 1 mg tablet 2 mg PO DAILY supplement 08/18/16 [History Last Taken 12/05/21] methotrexate sodium 2.5 mg tablet 20 mg PO WE rheumatoid arthritis 08/18/16 [History Last Taken 11/30/21] tramadol 50 mg tablet 1 - 2 tab PO Q6H PRN PRN Pain 08/18/16 [History Last Taken Unknown] denosumab 60 mg/mL subcutaneous syringe (Prolia) 60 mg subcut [id number] bone health 04/03/18 [History Last Taken 06/30/20] rizatriptan 10 mg tablet 10 mg PO Q2H PRN MIGRAINE SYMPTOMS #10 tabs 07/05/20 [Rx Last Taken Unknown] tizanidine 2 mg tablet 2 mg PO Q8H PRN PRN MUSCLE STRAIN, SPASMS #20 tabs 07/05/20 [Rx Last Taken Unknown] ezetimibe 10 mg tablet 10 mg PO DAILY . 05/25/21 [History Last Taken 12/05/21] prednisone 5 mg tablet 10 mg PO DAILY PRN PRN . 05/25/21 [History Last Taken Unknown] ascorbic acid (vitamin C) 500 mg tablet (Vitamin C) 500 mg PO DAILY 12/05/21 [History Last Taken 12/05/21] Allergy/AdvReac Type Severity Reaction Status Date / Time cat dander Allergy Unknown Verified 08/18/16 15:38 hydroxychloroquine AdvReac photosensit Verified 07/02/20 14:57 [From Plaquenil] ivity niacin AdvReac Rash Verified 07/02/20 14:57 Penicillins AdvReac Rash Verified 07/02/20 14:57 Family History Mother Hypertension Sister Lupus Surgical History History of section History of hernia repair history of wrist surgery Social History Smoking Status: Never smoker alcohol intake: current alcohol intake frequency: 0-2 drinks per day Alcohol type: wine ROS Constitutional Constitutional: Denies fever(s) or weight loss Eyes Eyes: Reports systems reviewed and no addt'l complaints, except as documented ENT HEENT: Reports systems reviewed and no addt'l complaints, except as documented Cardiovascular Cardiovascular: Reports chest pain at rest, chest pain with activity, dyspnea at rest and dyspnea on exertion; Denies edema, palpitations or paroxysmal nocturnal dyspnea Respiratory/Chest Respiratory/Chest: Denies dyspnea on exertion, productive cough, shortness of breath at rest or shortness of breath with exertion Gastrointestinal Gastrointestinal: Denies change in bowel habits, nausea, vomiting or weight changes Genitourinary Genitourinary: Denies difficulty urinating Musculoskeletal Musculoskeletal: Denies joint stiffness or muscle weakness Integumentary Integumentary: Denies lesions Neurologic Neurologic: Denies dizziness or syncope Psychiatric Psychiatric: Denies anxiety Endocrine Endocrinology: Denies excessive sweating or fatigue Hematologic/Lymphatic Hematologic/Lymphatic: Denies anemia Allergic/Immunologic Allergic/Immunologic: Denies seasonal rhinorrhea Physical Exam Const alert, oriented x3 and no apparent distress General Appearance: cooperative HEENT hearing grossly normal bilaterally Head and Scalp: atraumatic Eyes EOMs intact bilaterally Neck General: normal visual inspection Chest inspection of chest normal and palpation of chest normal Resp normal respiratory effort Auscultation: clear to auscultation bilaterally Cardio regular rate, regular rhythm, S1 normal heart sound and S2 normal heart sound Jugular Venous Distention: JVD GI normal to inspection, nondistended, normoactive bowel sounds Extremity normal capillary refill and no pedal edema Peripheral Pulses: Yes pulses 2+ throughout and femoral pulses present Skin no rashes or lesions noted Neuro oriented x3 and CN's II-XII intact bilaterally Psych Appearance: grossly normal and appropriate Risk Stratification Risk Stratification Applicable: Yes Age >/= 65: Yes >/= 3 CAD Risk Factors (HTN, HLD, DM, family hx of CAD, or current smoker): No Aspirin Use in the Past 7 Days: No Severe Angina (>/= episodes in 24 hours): No EKG ST Changes >/= 0.5mm: No Positive Cardiac Marker: No JERE Risk Stratification Score: 1 JERE % Risk: 5% Risk Objective Data Vital Signs: Vital Signs Temp Pulse Resp BP Pulse Ox O2 Del Method 98.9 F 67 16 168/101 H 100 Room Air 12/05/21 19:00 12/05/21 19:00 12/05/21 19:00 12/05/21 19:00 12/05/21 19:00 12/05/21 19:00 Oxygen Delivery Method Room Air Weight: 128 lb Body Mass Index (BMI) 24.1 Lab / Micro Data Result Diagrams: 12/05/21 17:15 12/05/21 17:15 Labs: Laboratory Results - last 24 hr 12/05/21 17:15: WBC 7.8, RBC 4.93, Hgb 14.9, Hct 44.2, MCV 89.7, MCH 30.2, MCHC 33.7, RDW Std Deviation 43.8, RDW Coeff of Dejah 13.5, Plt Count 264, MPV 10.8, Immature Gran % (Auto) 0.300, Neut % (Auto) 70.6 H, Lymph % (Auto) 22.1, [place] % (Auto) 5.9, Eos % (Auto) 0.3, Baso % (Auto) 0.8, Absolute Neuts (auto) 5.5, Absolute Lymphs (auto) 1.73, Nucleated RBC % 0 12/05/21 17:15: Sodium 140, Potassium 4.2, Chloride 105, Carbon Dioxide 26.0, Anion Gap 9, BUN 22 H, Creatinine 1.02, Estim Creat Clear Calc 36.51, Est GFR (MDRD) Af Amer 68, Est GFR (MDRD) Non-Af 56 L, BUN/Creatinine Ratio 21.6 H, Glucose 99, Calcium 9.8, Troponin I High Sens 81 H 12/05/21 19:00: Troponin I High Sens 83 H Cardiology Labs/Tests 12/05/21 17:15: WBC 7.8, RBC 4.93, Hgb 14.9, Hct 44.2, MCV 89.7, MCH 30.2, MCHC 33.7, Plt Count 264, MPV 10.8, Immature Gran % (Auto) 0.300, Neut % (Auto) 70.6 H, Lymph % (Auto) 22.1, [place] % (Auto) 5.9, Eos % (Auto) 0.3, Baso % (Auto) 0.8, Absolute Neuts (auto) 5.5, Nucleated RBC % 0 12/05/21 17:15: Sodium 140, Potassium 4.2, Chloride 105, Carbon Dioxide 26.0, Anion Gap 9, BUN 22 H, Creatinine 1.02, Est GFR (MDRD) Af Amer 68, Est GFR (MDRD) Non-Af 56 L, BUN/Creatinine Ratio 21.6 H, Glucose 99, Calcium 9.8 Rhythm: EKG: ECHO: Stress Test: Cardiac Cath: PCI: CT Surgery: Holter monitor: EPS: PPM: CXR: Chest CT Scan: Radiography Diagnostic Testing: Radiology Impression Chest X-Ray 12/05/21 18:15 IMPRESSION: 1. Left ventricular cardiac configuration without cardiomegaly or heart failure. 2. No other active cardiopulmonary disease. 3. No pneumonia, pneumonitis, bronchitis, or pulmonary mass lesions 4. No interval change since the previous study of 01/14/2016. Electronically Signed: Carmelo Mcarthur MD at 18:43 EDT ,
[2021-12-06] VITALS (11 sets, daily range): BP systolic 108–158; BP diastolic 73–108; PULSE 62–79; RESP 16; TEMP 36.6–36.7; O2SAT 96–99
[2021-12-06 00:17] LABS: Troponin-I HS 87 pg/mL (3.0-54.0)
[2021-12-06 07:18] LABS: Absolute Lymphocyte Count 2.42 X10^3/uL (0.83-4.51); Basophil# 0.05 X10^3/uL; Eosinophil# 0.19 X10^3/uL; Eosinophils% 3.7 % (0-5); Hematocrit 43.7 % (37-47); Hemoglobin 14.5 g/dL (12.0-15.0); Lymphocyte # 2.42 X10^3/ul (0.83-4.51); Lymphocyte % 47.3 % (19-41); Mean Corp Hgb Conc 33.2 g/dL (32-36); Mean Corpuscular Hgb 30.5 pg (27.0-32.0); Mean Corpuscular Volume 91.8 fL (81-99); Mean Platelet Vol. 10.3 fl (6.2-12.0); Monocyte% 9.8 % (0-10); NRBC Flagged by Analyzer 0 % (0-5); Neutrophil # 1.95 X10^3/uL (2.7-7.7); Platelet Count 244 K/mm3 (150-450); RBC Distribution Width CV 13.4 % (11.6-14.6); RBC Distribution Width SD 45.3 fl (35.1-43.9); Red Blood Count 4.76 M/mm3 (4.2-5.4); White Blood Count 5.1 K/mm3 (4.4-11.0)
[2021-12-06 07:49] LABS: Anion Gap 7 (5-15); BUN 16 mg/dL (7-18); BUN/Creat Ratio 21.6 RATIO (10-20); Calcium,Total 8.9 mg/dL (8.5-10.1); Chloride 109 mmol/L (98-107); Creatinine, Serum 0.74 mg/dL (0.55-1.02); EST Glomerular Filtration Rate 81 mL/min (>60); Est Glom Filt Rate - Afr Amer 99 mL/min (>60); Estimated Creatinine Clearance 37.24 ml/min; Glucose 83 mg/dL (74-106); Magnesium 2.4 mg/dL (1.6-2.6); Phosphorus 3.8 mg/dL (2.5-4.9); Potassium 3.8 mmol/L (3.5-5.1); Sodium Level 142 mmol/L (136-145)
--- NOTE | 2021-12-06 09:23 | PN.CARD_ITS ---
Subjective Subjective Patient seen and evaluated. Appears to be doing well. Objective Data Vital Signs: Vital Signs Temp Pulse Resp BP Pulse Ox O2 Del Method 98.1 F 68 16 140/73 H 99 Room Air 12/06/21 05:00 12/06/21 07:34 12/06/21 05:00 12/06/21 05:00 12/06/21 05:00 12/06/21 05:00 Oxygen Delivery Method Room Air Weight: 128 lb Body Mass Index (BMI) 24.1 Intake & Output: Intake and Output for Last 24 Hours 12/04/21 12/05/21 12/06/21 23:59 23:59 23:59 Intake Total 500 / 500 Balance 500 / 500 Lab / Micro Data Result Diagrams: 12/06/21 06:45 12/06/21 06:45 Labs: Laboratory Results - last 24 hr 12/05/21 17:15: WBC 7.8, RBC 4.93, Hgb 14.9, Hct 44.2, MCV 89.7, MCH 30.2, MCHC 33.7, RDW Std Deviation 43.8, RDW Coeff of Dejah 13.5, Plt Count 264, MPV 10.8, Immature Gran % (Auto) 0.300, Neut % (Auto) 70.6 H, Lymph % (Auto) 22.1, [facility] % (Auto) 5.9, Eos % (Auto) 0.3, Baso % (Auto) 0.8, Absolute Neuts (auto) 5.5, Absolute Lymphs (auto) 1.73, Nucleated RBC % 0 12/05/21 17:15: Sodium 140, Potassium 4.2, Chloride 105, Carbon Dioxide 26.0, Anion Gap 9, BUN 22 H, Creatinine 1.02, Estim Creat Clear Calc 36.51, Est GFR (MDRD) Af Amer 68, Est GFR (MDRD) Non-Af 56 L, BUN/Creatinine Ratio 21.6 H, Glucose 99, Calcium 9.8, Troponin I High Sens 81 H 12/05/21 19:00: Troponin I High Sens 83 H 12/05/21 23:51: Troponin I High Sens 87 H 12/06/21 06:45: WBC 5.1, RBC 4.76, Hgb 14.5, Hct 43.7, MCV 91.8, MCH 30.5, MCHC 33.2, RDW Std Deviation 45.3 H, RDW Coeff of Dejah 13.4, Plt Count 244, MPV 10.3, Immature Gran % (Auto) 0.200, Neut % (Auto) 38.0 L, Lymph % (Auto) 47.3 H, [facility] % (Auto) 9.8, Eos % (Auto) 3.7, Baso % (Auto) 1.0, Absolute Neuts (auto) 2.0, Absolute Lymphs (auto) 2.42, Nucleated RBC % 0 12/06/21 06:45: Sodium 142, Potassium 3.8, Chloride 109 H, Carbon Dioxide 26.0, Anion Gap 7, BUN 16, Creatinine 0.74, Estim Creat Clear Calc 37.24, Est GFR (MDRD) Af Amer 99, Est GFR (MDRD) Non-Af 81, BUN/Creatinine Ratio 21.6 H, Glucose 83, Calcium 8.9, Phosphorus 3.8, Magnesium 2.4 Micro: Microbiology 12/05/21 21:05 Nasal Secretion SARS-CoV-2 Antigen (Rapid) - Final Rhythm Strip Rhythm Strip: Sinus Rhythm Rate: 79 Ectopy: None Cardiology Labs/Tests 12/05/21 17:15: WBC 7.8, RBC 4.93, Hgb 14.9, Hct 44.2, MCV 89.7, MCH 30.2, MCHC 33.7, Plt Count 264, MPV 10.8, Immature Gran % (Auto) 0.300, Neut % (Auto) 70.6 H, Lymph % (Auto) 22.1, [facility] % (Auto) 5.9, Eos % (Auto) 0.3, Baso % (Auto) 0.8, Absolute Neuts (auto) 5.5, Nucleated RBC % 0 12/05/21 17:15: Sodium 140, Potassium 4.2, Chloride 105, Carbon Dioxide 26.0, Anion Gap 9, BUN 22 H, Creatinine 1.02, Est GFR (MDRD) Af Amer 68, Est GFR (MDRD) Non-Af 56 L, BUN/Creatinine Ratio 21.6 H, Glucose 99, Calcium 9.8 12/06/21 06:45: WBC 5.1, RBC 4.76, Hgb 14.5, Hct 43.7, MCV 91.8, MCH 30.5, MCHC 33.2, Plt Count 244, MPV 10.3, Immature Gran % (Auto) 0.200, Neut % (Auto) 38.0 L, Lymph % (Auto) 47.3 H, [facility] % (Auto) 9.8, Eos % (Auto) 3.7, Baso % (Auto) 1.0, Absolute Neuts (auto) 2.0, Nucleated RBC % 0 12/06/21 06:45: Sodium 142, Potassium 3.8, Chloride 109 H, Carbon Dioxide 26.0, Anion Gap 7, BUN 16, Creatinine 0.74, Est GFR (MDRD) Af Amer 99, Est GFR (MDRD) Non-Af 81, BUN/Creatinine Ratio 21.6 H, Glucose 83, Calcium 8.9, Phosphorus 3.8, Magnesium 2.4 Rhythm: EKG: ECHO: Stress Test: Cardiac Cath: PCI: CT Surgery: Holter monitor: EPS: PPM: CXR: Chest CT Scan: Radiography Diagnostic Testing: Radiology Impression Chest X-Ray 12/05/21 18:15 IMPRESSION: 1. Left ventricular cardiac configuration without cardiomegaly or heart failure. 2. No other active cardiopulmonary disease. 3. No pneumonia, pneumonitis, bronchitis, or pulmonary mass lesions 4. No interval change since the previous study of 01/14/2016. Electronically Signed: Carmelo Mcarthur MD at 18:43 EDT , Physical Exam Const alert, oriented x3 and no apparent distress General Appearance: cooperative HEENT hearing grossly normal bilaterally Head and Scalp: atraumatic Eyes EOMs intact bilaterally Neck General: normal visual inspection Chest inspection of chest normal and palpation of chest normal Resp normal respiratory effort Auscultation: clear to auscultation bilaterally Cardio regular rate, regular rhythm, S1 normal heart sound and S2 normal heart sound Jugular Venous Distention: JVD GI normal to inspection, nondistended, normoactive bowel sounds Extremity normal capillary refill and no pedal edema Peripheral Pulses: Yes pulses 2+ throughout and femoral pulses present Skin no rashes or lesions noted Neuro oriented x3 and CN's II-XII intact bilaterally Psych Appearance: grossly normal and appropriate Assessment & Plan Assessment/Plan (1) Chest pain: PLAN: She presents with chest discomfort and shortness of breath which appears to be progressive over the last 2 to 3 months. She does keep a rather active exercise schedule but has been having some of this discomfort with exertion and then also occurring at more frequent episodes. Due to the above I would recommend foregoing stress testing and proceeding with a left heart catheterization. Depending on the findings further recommendations will be made. Of note is the fact that her blood pressure is also elevated and this could also be contributing to some of her symptomatology. * She underwent a cardiac catheterization today which demonstrated essentially normal coronary arteries. There was tortuous vessels noted as well as a tortuous aorta. The above suggest hypertension. (2) Hypertension: PLAN: Her blood pressure appears to be suboptimally controlled. I would recommend that we add losartan 50 mg a day to her current regimen and for her to have her blood pressures checked at home 3 times a week and will follow-up in the office. Obtain an echocardiogram today to assess her ventricular function. And look at wall thickness. Can be discharged later today.
--- NOTE | 2021-12-06 09:30 | CL.D_ITS ---
Patient Name: LIBORIO GENTILE D Study Date: 12/06/2021 Performing: Timbo Davis MD Ht: 61 inches 155 cm : 1945 Wt: 128 lbs 58 kg Age: 76 Gender: female BSA: 1.56 PROCEDURE(S) PERFORMED [id number])LHC/COR/LV CLINICAL PROFILE AND INDICATIONS Indications: Worsening Angina Heart Failure: None Stress/Imaging Stress/Image Study Performed: No CAD Presentations: Unstable angina. CONCLUSIONS Non obstructive coronary arteries RECOMMENDATIONS Medical therapy DESCRIPTION OF PROCEDURE The patient arrived to the procedure lab. The risks and benefits of the procedure as well as a full d escription of our services here and current unavailability of surgical backup were fully explained to the patient and/or their significant other prior to the catheterization. The Timeout was completed, verifying the correct patient and procedure. The patient's procedural site was prepped and draped in the usual fashion. Local anesthetic was given subcutaneously to right groin region with Lidocaine 2%. Using a modified Seldinger technique, arterial access was obtained via the right femoral artery, a 5 Fr sheath was inserted. Left Coronary Artery selective angiography was performed in multiple views u sing a 5 Fr. JL4 catheter. Right Coronary Artery selective angiography was then performed in multiple views using a 5 Fr. 3DRC (Ialn) catheter. Left Ventriculography was performed in [place]OW[place] projection using a 5 Fr. Pigtail catheter. LV to AO pullback pressures were then recorded.Contrast was injected through the sheath and the Right Iliac and Femoral artery were assessed for possible tung sure device.The arterial sheath was pulled and a Mynx closure device was deployed for hemostasis CORONARY ANGIOGRAPHY DOMINANCE: Right Dominant LEFT HEART ASSESSMENT Left Ventricular Ejection Fraction: by LV Gram 65 % Normal LV wall motion LEFT MAIN: Angiographically normal LEFT ANTERIOR DESCENDING ARTERY: No significant disease noted CIRCUMFLEX ARTERY: Mild luminal irregularities COMPLICATIONS No Complications PROCEDURE MEDICATIONS Fentanyl 50 mcg IV Versed 1 mg IV Versed 1 mg IV Oxygen: 2 L/min via nasal cannula Baby Aspirin (81mg) 1 Tabs PO @ 12/06/2021 08:39:30 SUMMARY OF HEMODYNAMIC DATA Time AIR REST ECG 08:43:14 AO 149/82 (110) SA 08:56:05 LV 163/15, 18 09:02:52 LV 157/12, 16 09:02:58 LV 165/20, 25 09:03:37 LV 168/18, 22 09:03:43 LVp 170/18, 24 09:03:48 AOp 164/90 (121) 09:03:53 Signed By Timbo Davis MD On 12/06/2021 9:29:41 AM Timbo Davis MD
[2021-12-06] MEDS: Losartan Potassium 50 MG Tablet PO (11:14)
[2021-12-06] MEDS: Ezetimibe 10 MG Tablet PO (11:14)
[2021-12-06] MEDS: Calcium Carb/Vitamin D 1 TABLET Tablet PO (11:14)
--- NOTE | 2021-12-06 12:34 | DCINST_ITS ---
Discharge Instructions Diet Discharge Diet: Low fat / Low cholesterol and 2000 mg Sodium Diet Activity Discharge Activity: Return to Normal Activity Dressing / Incision Call your doctor if you observe: Shortness of breath, Fainting spells, Swelling in the ankles, Chest pain and Increased palpitations (irregular heartbeat) Follow Up Care Test Results: Test results from this visit will be discussed in further detail at your follow- up appointment, if applicable. Discharge Plan Admission Admit Date/Time: 12/05/21 18:16 Primary Reason for Your Visit: Chest Pain Attending Provider: Richard Telles Primary Care Provider: Jena Valentin Discharge Orders/Prescriptions Prescriptions: New losartan 50 mg Tablet 50 mg PO DAILY 30 Days Qty: 30 0RF Continued Prolia 60 mg/mL syringe 60 mg SC [id number] calcium carbonate-vitamin D3 [Calcium 600 + D(3)] 1 EACH tablet 1 ea PO BID tramadol 50 MG tablet 1 - 2 tab PO Q6H PRN PRN (Reason: Pain) methotrexate sodium 2.5 MG tablet 20 mg PO WE folic acid 1 MG tablet 2 mg PO DAILY Orencia 125 MG/ML syringe 125 mg SQ WE Rx Instructions: not taking this week due to diagnosis tizanidine 2 MG tablet 2 mg PO Q8H PRN PRN (Reason: MUSCLE STRAIN, SPASMS) Qty: 20 0RF rizatriptan 10 MG tablet 10 mg PO Q2H PRN (Reason: MIGRAINE SYMPTOMS) Qty: 10 0RF prednisone 5 mg Tablet 10 mg PO DAILY PRN PRN (Reason: .) Protocol: Titrate ezetimibe 10 mg tablet 10 mg PO DAILY ascorbic acid (vitamin C) [Vitamin C] 500 mg Tablet 500 mg PO DAILY Referrals / Follow Up: Jena Valentin MD [Primary Care Provider] - Disposition Disposition (needs filled in before D/C Order can be placed): Home, Self Care
--- NOTE | 2021-12-06 12:41 | PCM.DC.SUM ---
Documented by User: STAN Jorgensen 12/06/21 12:45 Providers Date of Admission: 12/05/21 Date of Discharge: 12/06/21 Primary Care Physician: Dr. Jena Valentin MD Reason For Visit: CHEST PAIN Diagnosis Discharge Diagnosis (1) Chest pain: Status: Acute Code(s): R07.9 - Chest pain, unspecified (2) Hypertension: Status: Chronic Code(s): I10 - Essential (primary) hypertension Medications at Discharge Home Medications abatacept 125 mg/mL subcutaneous syringe (Orencia) 125 mg SQ WE RA 08/18/16 calcium carbonate 600 mg-vitamin D3 5 mcg (200 unit) tablet (Calcium 600 + D(3)) 1 ea PO BID supplement 08/18/16 folic acid 1 mg tablet 2 mg PO DAILY supplement 08/18/16 methotrexate sodium 2.5 mg tablet 20 mg PO WE rheumatoid arthritis 08/18/16 tramadol 50 mg tablet 1 - 2 tab PO Q6H PRN PRN Pain 08/18/16 denosumab 60 mg/mL subcutaneous syringe (Prolia) 60 mg subcut [id number] bone health 04/03/18 rizatriptan 10 mg tablet 10 mg PO Q2H PRN MIGRAINE SYMPTOMS #10 tabs 07/05/20 tizanidine 2 mg tablet 2 mg PO Q8H PRN PRN MUSCLE STRAIN, SPASMS #20 tabs 07/05/20 ezetimibe 10 mg tablet 10 mg PO DAILY . 05/25/21 prednisone 5 mg tablet 10 mg PO DAILY PRN PRN . 05/25/21 ascorbic acid (vitamin C) 500 mg tablet (Vitamin C) 500 mg PO DAILY 12/05/21 losartan 50 mg tablet 50 mg PO DAILY 30 days #30 tabs 12/06/21 Hospital Course Procedures Cardiac catheterization Summary of Care Provided Minutes Spent on Discharge: 25 Hospital Course: Patient is a 76-year-old female who came in last night for chest pain and was scheduled for stress test this morning however upon evaluation by cardiology it was decided that patient might skip stress test and go straight to cardiac catheterization. Cardiac catheterization demonstrated normal coronary arteries however there were torturous vessels as well as a torturous aorta. Patient was also noted to be hypertensive upon admission and losartan 50 mg daily was added to her regimen per cardiology with instructions to check her blood pressure at home 3 times a week and to follow-up in the office with Dr. Davis. Cardiac catheterization patient underwent echocardiogram which demonstrated an EF of 65%. Weight / BMI Weight Weight: 128 lb Body Mass Index (BMI) 24.1 ABG / Lab / Microbiology Data Result Diagrams: 12/06/21 06:45 12/06/21 06:45 Laboratory: Laboratory Results - last 24 hr 12/05/21 17:15: WBC 7.8, RBC 4.93, Hgb 14.9, Hct 44.2, MCV 89.7, MCH 30.2, MCHC 33.7, RDW Std Deviation 43.8, RDW Coeff of Dejah 13.5, Plt Count 264, MPV 10.8, Immature Gran % (Auto) 0.300, Neut % (Auto) 70.6 H, Lymph % (Auto) 22.1, Sherman % (Auto) 5.9, Eos % (Auto) 0.3, Baso % (Auto) 0.8, Absolute Neuts (auto) 5.5, Absolute Lymphs (auto) 1.73, Nucleated RBC % 0 12/05/21 17:15: Sodium 140, Potassium 4.2, Chloride 105, Carbon Dioxide 26.0, Anion Gap 9, BUN 22 H, Creatinine 1.02, Estim Creat Clear Calc 36.51, Est GFR (MDRD) Af Amer 68, Est GFR (MDRD) Non-Af 56 L, BUN/Creatinine Ratio 21.6 H, Glucose 99, Calcium 9.8, Troponin I High Sens 81 H 12/05/21 19:00: Troponin I High Sens 83 H 12/05/21 23:51: Troponin I High Sens 87 H 12/06/21 06:45: WBC 5.1, RBC 4.76, Hgb 14.5, Hct 43.7, MCV 91.8, MCH 30.5, MCHC 33.2, RDW Std Deviation 45.3 H, RDW Coeff of Dejah 13.4, Plt Count 244, MPV 10.3, Immature Gran % (Auto) 0.200, Neut % (Auto) 38.0 L, Lymph % (Auto) 47.3 H, Sherman % (Auto) 9.8, Eos % (Auto) 3.7, Baso % (Auto) 1.0, Absolute Neuts (auto) 2.0, Absolute Lymphs (auto) 2.42, Nucleated RBC % 0 12/06/21 06:45: Sodium 142, Potassium 3.8, Chloride 109 H, Carbon Dioxide 26.0, Anion Gap 7, BUN 16, Creatinine 0.74, Estim Creat Clear Calc 37.24, Est GFR (MDRD) Af Amer 99, Est GFR (MDRD) Non-Af 81, BUN/Creatinine Ratio 21.6 H, Glucose 83, Calcium 8.9, Phosphorus 3.8, Magnesium 2.4 Microbiology: Microbiology 12/05/21 21:05 Nasal Secretion SARS-CoV-2 Antigen (Rapid) - Final Radiography Diagnostic Testing: Radiology Impression Chest X-Ray 12/05/21 18:15 IMPRESSION: 1. Left ventricular cardiac configuration without cardiomegaly or heart failure. 2. No other active cardiopulmonary disease. 3. No pneumonia, pneumonitis, bronchitis, or pulmonary mass lesions 4. No interval change since the previous study of 01/14/2016. Electronically Signed: Carmelo Mcarthur MD at 18:43 EDT , Echocardiogram 12/05/21 20:00 Interpretation Summary Normal LV size. Mild concentric left ventricular hypertrophy. Left ventricular systolic function is normal. The estimated ejection fraction is 65 %. Stage 1 diastolic dysfunction. Ordering Physician: Richard Telles Referring Physician: MD Richard Telles MD Performed By: Krystyna Huang RCS D/C Instructions Discharge Diet: Low fat / Low cholesterol and 2000 mg Sodium Diet Discharge Activity: Return to Normal Activity Call your doctor if you observe: Shortness of breath, Fainting spells, Swelling in the ankles, Chest pain and Increased palpitations (irregular heartbeat) Meaningful Use Info Meaningful Use Diagnoses (Choose all that apply): None applicable Discharge Plan Admission Admit Date/Time: 12/05/21 18:16 Primary Reason for Your Visit: Chest Pain Attending Provider: Richard Telles Primary Care Provider: Jena Valentin Discharge Orders/Prescriptions Prescriptions: New losartan 50 mg Tablet 50 mg PO DAILY 30 Days Qty: 30 0RF Continued Prolia 60 mg/mL syringe 60 mg SC [id number] calcium carbonate-vitamin D3 [Calcium 600 + D(3)] 1 EACH tablet 1 ea PO BID tramadol 50 MG tablet 1 - 2 tab PO Q6H PRN PRN (Reason: Pain) methotrexate sodium 2.5 MG tablet 20 mg PO WE folic acid 1 MG tablet 2 mg PO DAILY Orencia 125 MG/ML syringe 125 mg SQ WE Rx Instructions: not taking this week due to diagnosis tizanidine 2 MG tablet 2 mg PO Q8H PRN PRN (Reason: MUSCLE STRAIN, SPASMS) Qty: 20 0RF rizatriptan 10 MG tablet 10 mg PO Q2H PRN (Reason: MIGRAINE SYMPTOMS) Qty: 10 0RF prednisone 5 mg Tablet 10 mg PO DAILY PRN PRN (Reason: .) Protocol: Titrate ezetimibe 10 mg tablet 10 mg PO DAILY ascorbic acid (vitamin C) [Vitamin C] 500 mg Tablet 500 mg PO DAILY Referrals / Follow Up: Jena Valentin MD [Primary Care Provider] - Disposition Disposition (needs filled in before D/C Order can be placed): Home, Self Care Hospital Course Summary of Care Provided Hospital Course: This patient was seen in conjunction with STAN Jorgensen . I have independently interviewed and examined the patient and reviewed pertinent historical, laboratory, and other data. Please refer to STAN Jorgensen note for details of this patient's presentation, findings, and recommendations. I have reviewed STAN Jorgensen note and concur with documented findings. In brief, patient is a 76-year-old lady with past medical history signal for rheumatoid arthritis who presented with chest pain. Patient has slightly elevated troponin consult subsequently placed to cardiology patient underwent left heart catheterization which failed to demonstrate any hemodynamically obstructive lesions. Patient was however found to have slightly elevated blood pressure. She was started on antihypertensives prior to Physical Examination: GENERAL: cooperative HEENT: Atraumatic; EYES; Anicteric, Normal Conjunctiva NECK; supple, normal thyroid, RESPIRATORY: Diminished to auscultation CARDIOVASCULAR: Regular S1 S2, GI: soft, normoactive bowel sounds, : No Renal angle tenderness; EXTREMITIES: No edema, no clubbing, MUSCULOSKELETAL: no muscle wasting NEURO: Awake; no lateralizing signs. SKIN: No Rash PSYCH; Flat affect Hospital course; as documented above Total time spent by myself and the advanced practice practitioner evaluating patient, reviewing labs, subsequent management decisions, discussion with patient as well as other providers 40 minutes ( 25 of which was spent by myself) Documented by User: Dr. Richard Telles MD 12/06/21 14:21 Providers Date of Admission: 12/05/21 Reason For Visit: CHEST PAIN Diagnosis Discharge Diagnosis (1) Chest pain: Status: Acute Code(s): R07.9 - Chest pain, unspecified (2) Hypertension: Status: Chronic Code(s): I10 - Essential (primary) hypertension Medications at Discharge Home Medications abatacept 125 mg/mL subcutaneous syringe (Orencia) 125 mg SQ WE RA 08/18/16 calcium carbonate 600 mg-vitamin D3 5 mcg (200 unit) tablet (Calcium 600 + D(3)) 1 ea PO BID supplement 08/18/16 folic acid 1 mg tablet 2 mg PO DAILY supplement 08/18/16 methotrexate sodium 2.5 mg tablet 20 mg PO WE rheumatoid arthritis 08/18/16 tramadol 50 mg tablet 1 - 2 tab PO Q6H PRN PRN Pain 08/18/16 denosumab 60 mg/mL subcutaneous syringe (Prolia) 60 mg subcut [id number] bone health 04/03/18 rizatriptan 10 mg tablet 10 mg PO Q2H PRN MIGRAINE SYMPTOMS #10 tabs 07/05/20 tizanidine 2 mg tablet 2 mg PO Q8H PRN PRN MUSCLE STRAIN, SPASMS #20 tabs 07/05/20 ezetimibe 10 mg tablet 10 mg PO DAILY . 05/25/21 prednisone 5 mg tablet 10 mg PO DAILY PRN PRN . 05/25/21 ascorbic acid (vitamin C) 500 mg tablet (Vitamin C) 500 mg PO DAILY 12/05/21 losartan 50 mg tablet 50 mg PO DAILY 30 days #30 tabs 12/06/21 Hospital Course Operations None Procedures Cardiac catheterization Summary of Care Provided Minutes Spent on Discharge: 40 ABG / Lab / Microbiology Data Result Diagrams: 12/06/21 06:45 12/06/21 06:45 Discharge Plan Admission Admit Date/Time: 12/05/21 18:16 Primary Reason for Your Visit: Chest Pain Attending Provider: Richard Telles Primary Care Provider: Jena Valentin Discharge Orders/Prescriptions Prescriptions: New losartan 50 mg Tablet 50 mg PO DAILY 30 Days Qty: 30 0RF Continued Prolia 60 mg/mL syringe 60 mg SC [id number] calcium carbonate-vitamin D3 [Calcium 600 + D(3)] 1 EACH tablet 1 ea PO BID tramadol 50 MG tablet 1 - 2 tab PO Q6H PRN PRN (Reason: Pain) methotrexate sodium 2.5 MG tablet 20 mg PO WE folic acid 1 MG tablet 2 mg PO DAILY Orencia 125 MG/ML syringe 125 mg SQ WE Rx Instructions: not taking this week due to diagnosis tizanidine 2 MG tablet 2 mg PO Q8H PRN PRN (Reason: MUSCLE STRAIN, SPASMS) Qty: 20 0RF rizatriptan 10 MG tablet 10 mg PO Q2H PRN (Reason: MIGRAINE SYMPTOMS) Qty: 10 0RF prednisone 5 mg Tablet 10 mg PO DAILY PRN PRN (Reason: .) Protocol: Titrate ezetimibe 10 mg tablet 10 mg PO DAILY ascorbic acid (vitamin C) [Vitamin C] 500 mg Tablet 500 mg PO DAILY Referrals / Follow Up: Jena Valentin MD [Primary Care Provider] - Disposition Disposition (needs filled in before D/C Order can be placed): Home, Self Care Charges/Coding Visit Charges OBSV E&M: 87938 Observation care discharge Hospital Course Operations None Procedures Procedures: Cardiac catheterization Summary of Care Provided Hospital Course: This patient was seen in conjunction with BRANDIE JorgensenC . I have independently interviewed and examined the patient and reviewed pertinent historical, laboratory, and other data. Please refer to STAN Jorgensen note for details of this patient's presentation, findings, and recommendations. I have reviewed STAN Jorgensen note and concur with documented findings. In brief, patient is a 76-year-old lady with past medical history signal for rheumatoid arthritis who presented with chest pain. Patient has slightly elevated troponin consult subsequently placed to cardiology patient underwent left heart catheterization which failed to demonstrate any hemodynamically obstructive lesions. Patient was however found to have slightly elevated blood pressure. She was started on antihypertensives prior to Physical Examination: GENERAL: cooperative HEENT: Atraumatic; EYES; Anicteric, Normal Conjunctiva NECK; supple, normal thyroid, RESPIRATORY: Diminished to auscultation CARDIOVASCULAR: Regular S1 S2, GI: soft, normoactive bowel sounds, : No Renal angle tenderness; EXTREMITIES: No edema, no clubbing, MUSCULOSKELETAL: no muscle wasting NEURO: Awake; no lateralizing signs. SKIN: No Rash PSYCH; Flat affect Hospital course; as documented above Total time spent by myself and the advanced practice practitioner evaluating patient, reviewing labs, subsequent management decisions, discussion with patient as well as other providers 40 minutes ( 25 of which was spent by myself)
--- NOTE | 2021-12-06 14:58 | PHA.DC.MR ---
Pharmacy Service has performed discharge medication reconciliation for this patient. The patient's discharge medication list was reviewed for discrepancies and discrepancies were resolved. Medication education papers prepared, patient discharged before I was able to teacher counselor. Home Medications abatacept 125 mg/mL subcutaneous syringe (Orencia) 125 mg SQ WE RA 08/18/16 calcium carbonate 600 mg-vitamin D3 5 mcg (200 unit) tablet (Calcium 600 + D(3)) 1 ea PO BID supplement 08/18/16 folic acid 1 mg tablet 2 mg PO DAILY supplement 08/18/16 methotrexate sodium 2.5 mg tablet 20 mg PO WE rheumatoid arthritis 08/18/16 tramadol 50 mg tablet 1 - 2 tab PO Q6H PRN PRN Pain 08/18/16 denosumab 60 mg/mL subcutaneous syringe (Prolia) 60 mg subcut [id number] bone health 04/03/18 rizatriptan 10 mg tablet 10 mg PO Q2H PRN MIGRAINE SYMPTOMS #10 tabs 07/05/20 tizanidine 2 mg tablet 2 mg PO Q8H PRN PRN MUSCLE STRAIN, SPASMS #20 tabs 07/05/20 ezetimibe 10 mg tablet 10 mg PO DAILY . 05/25/21 prednisone 5 mg tablet 10 mg PO DAILY PRN PRN . 05/25/21 ascorbic acid (vitamin C) 500 mg tablet (Vitamin C) 500 mg PO DAILY 12/05/21 losartan 50 mg tablet 50 mg PO DAILY 30 days #30 tabs 12/06/21
== END 2021-12-06 09:22 | disposition home or self-care (01) ==
LOC: ED 18:19 → PCU 18:51
PROVIDERS: Admitting Provider Internal Medicine; Emergency Provider Emergency Medicine; PCP Internal Medicine; Visit Provider Internal Medicine
DX: R07.89 Other chest pain (principal); M06.9 Rheumatoid arthritis, unspecified; I10 Essential (primary) hypertension; E78.5 Hyperlipidemia, unspecified; R06.02 Shortness of breath; Z79.899 Other long term (current) drug therapy; M81.0 Age-related osteoporosis without current pathological fracture; Q25.46 Tortuous aortic arch
CPT/HCPCS: 36415; 71045; 80048; 83735; 84100; 84484; 85025; 87811; 93005; 93306; 93458; 99152; 99153; 99218; 99251; 99285; C1760; C1769; C8929; G0378; G0463; Q9967

== ENCOUNTER → 2021-12-26 | Outpatient (CLI) | payer MEDICARE, OTHER, SELFPAY ==
[2021-12-26 10:09] LABS: Absolute Neutrophil Count 1.7 X10^3/uL (2.0-7.7); Basophil# 0.06 X10^3/uL; Basophil% 1.3 % (0-1); Eosinophil# 0.24 X10^3/uL; Eosinophils% 5.1 % (0-5); Hematocrit 43.5 % (37-47); Hemoglobin 14.8 g/dL (12.0-15.0); Lymphocyte % 48.6 % (19-41); Mean Corpuscular Hgb 30.6 pg (27.0-32.0); Mean Corpuscular Volume 90.1 fL (81-99); Mean Platelet Vol. 10.7 fl (6.2-12.0); Monocyte% 8.5 % (0-10); NRBC Flagged by Analyzer 0 % (0-5); Neutrophil # 1.72 X10^3/uL (2.7-7.7); Neutrophil % 36.3 % (47-70); Platelet Count 247 K/mm3 (150-450); RBC Distribution Width CV 12.9 % (11.6-14.6); Red Blood Count 4.83 M/mm3 (4.2-5.4); White Blood Count 4.7 K/mm3 (4.4-11.0)
[2021-12-26 10:28] LABS: ALB/GLOB Ratio 1.1 RATIO (0.9-2.4); AST(SGOT) 22 U/L (15-37); Alanine Aminotransfer ALT/SGPT 27 U/L (13-56); Albumin, Serum 3.4 g/dL (3.2-5.0); Alkaline Phosphatase 48 U/L (45-117); Anion Gap 5 (5-15); BUN 23 mg/dL (7-18); BUN/Creat Ratio 28.9 RATIO (10-20); Calcium,Total 9.5 mg/dL (8.5-10.1); Chloride 103 mmol/L (98-107); EST Glomerular Filtration Rate 75 mL/min (>60); Est Glom Filt Rate - Afr Amer 91 mL/min (>60); Globulin 3.2 g/dL (2.2-4.2); Glucose 83 mg/dL (74-106); Potassium 3.6 mmol/L (3.5-5.1); Protein, Total 6.6 g/dL (6.4-8.2); Sodium Level 138 mmol/L (136-145)
== END | disposition home or self-care (01) ==
PROVIDERS: PCP Internal Medicine; Referring Provider Internal Medicine Rheumatology; Visit Provider Internal Medicine Rheumatology
DX: M06.00 Rheumatoid arthritis without rheumatoid factor, unspecified site (principal); Z79.899 Other long term (current) drug therapy; M16.11 Unilateral primary osteoarthritis, right hip; M17.0 Bilateral primary osteoarthritis of knee; M18.12 Unilateral primary osteoarthritis of first carpometacarpal joint, left hand; M81.0 Age-related osteoporosis without current pathological fracture; M47.897 Other spondylosis, lumbosacral region; M47.892 Other spondylosis, cervical region; M50.30 Other cervical disc degeneration, unspecified cervical region; E78.5 Hyperlipidemia, unspecified; G47.33 Obstructive sleep apnea (adult) (pediatric); I10 Essential (primary) hypertension; R77.8 Other specified abnormalities of plasma proteins
CPT/HCPCS: 36415; 80053; 85025

== ENCOUNTER → 2022-01-12 | Outpatient (CLI) | payer MEDICARE, OTHER, SELFPAY ==
--- NOTE | 2022-01-12 12:12 | CT_ITS ---
STUDY: CTA CHEST REASON FOR EXAM: Female, 76 years old. Chest pain with exertion. RADIATION DOSAGE (If Supplied By Facility): CTDIvol = ( 6.92 ) mGy, DLP = ( 170.70 ) mGycm TECHNIQUE: The examination was performed with the intravenous administration of IV 100mL Isovue-370. Post-processing of the angiographic images was performed, with multiplanar reformation and 3D reconstruction. Individualized dose optimization techniques were used for this CT. COMPARISON: None. FINDINGS: Normal enhancement of the main pulmonary artery and right and left pulmonary arteries. Normal enhancement of the bilateral peripheral pulmonary arteries. There is no demonstrated pulmonary embolism. Normal thoracic aorta and visualized great vessels. There is no demonstrated aortic dissection. Minimal anterior pericardial thickening. Normal mediastinum. Normal hilar regions. Normal visualized trachea and bronchi. The lungs are well expanded. Minimal degree of increased markings at the lung bases suggestive of bibasilar atelectasis. Normal pleura. Normal chest wall structures. There are degenerative changes of thoracic spine. Normal visualized upper abdomen. CT/CTA Chest W/WO Contrast IMPRESSION: There is no evidence of pulmonary embolism. Minimal increased linear markings at the lung bases suggestive of a linear atelectasis. Electronically Signed: Yaya Bartlett MD at 12:44 EDT ,
== END | disposition home or self-care (01) ==
LOC: CT 12:12
PROVIDERS: PCP Internal Medicine; Referring Provider Internal Medicine Cardiovascular Disease; Visit Provider Internal Medicine Cardiovascular Disease
DX: R07.9 Chest pain, unspecified (principal)
CPT/HCPCS: 71275; Q9967

== ENCOUNTER → 2022-01-16 | Outpatient (CLI) | payer MEDICARE, OTHER, SELFPAY ==
--- NOTE | 2022-01-16 07:57 | RDU_ITS ---
Reason For Study: HTN Right Renal Artery Left Renal Artery Right renal artery ostium 119.8/32 Left renal artery ostium 87/13.9 RSV/EDV. PSV/EDV. Right renal artery proximal Left renal artery proximal PSV/EDV 110.7/30.7 PSV/EDV. 81.2/27.2 . Right renal artery mid 107.7/31.4 Left renal artery mid 84.9/24.9 PSV/EDV. PSV/EDV . Right renal artery distal 82.6/27.1 Left renal artery distal 95.7/32 PSV/EDV. PSV/EDV. Right RAR 1.56. Left RAR 1.24. Right Renal Parenchyma Left Renal Parenchyma Upper Pole Medula 35.2/13.3 Left upper pole medulla 28/9 PSV/EDV. PSV/EDV . Right upper pole medulla EDR 0.4 . Left upper pole medulla EDR 0.3 . Right upper pole medulla R.I. Left upper pole medulla R.I. 0.68 . 0.62 . UP Cortex 18.8/6.5 PSV/EDV. Upper Myles Cortx 12.6/5 PSV/EDV. Left upper pole cortex EDR 0.3 . Right upper pole cortex EDR 0.4 . Left upper pole cortex R.I. 0.65 . Right upper pole cortex R.I. 0.60 . Left lower Pole medulla 25.5/9.6 Right lower Pole medulla 28.2/8.8 PSV/EDV . PSV/EDV . Left lower pole medulla EDR 0.4 . Right lower pole medulla EDR 0.3 . Left lower pole medulla R.I. 0.62 . Right lower pole medulla R.I. Lower Pole Cortx 13.5/4.7 PSV/EDV. 0.69 . Left lower pole cortex EDR 0.3 . Lower Pole Cortex 14.5/5.5 PSV/EDV. Left lower pole cortex R.I. 0.65 . Right lower pole cortex EDR 0.4 . Left Renal Hilar Right lower pole cortex R.I. 0.62 . LT Hilar avg 60.5/19.3 PSV/EDV . Right Renal Hilar Left hilar acceleration time 40 Right Hilar avg 63.2/19.5 PSV/EDV. m/sec. Right hilar acceleration time 40 Left Renal Dimensions m/sec. Left kidney size 9.52 cm . Right Renal Dimensions Left cortical dimension 1.37 cm . Right kidney size 9.72 cm . Right cortical dimension 1.37 cm . Aorta Proximal abdominal aorta 1.89 x 1.91 cm . Proximal abdominal aorta peak systolic velocity is 76.9 cm/sec . Distal abdominal aorta 1.65 x 1.64 cm . Distal abdominal aorta peak systolic velocity is 76.9 cm/sec . VL/Renal Artery Duplex Ultrasound Interpretation Summary Normal maximal aortic diameter proximally at 1.89 x 1.91 cm. Normal aortic flow velocity. Less than 60% stenosis bilateral renal arteries Maintained right renal length of 9.72 cm. Maintained left renal length of 9.52 cm Ordering Physician: Jena Valentin Referring Physician: Jena Valentin Performed By: Terrie Park RVT
== END | disposition home or self-care (01) ==
LOC: CVS 07:56
PROVIDERS: PCP Internal Medicine; Referring Provider Internal Medicine; Visit Provider Internal Medicine
DX: I10 Essential (primary) hypertension (principal)
CPT/HCPCS: 93975

== ENCOUNTER → 2022-01-19 | Outpatient (CLI) | payer MEDICARE, OTHER, SELFPAY ==
[2022-01-19 15:37] LABS: Anion Gap 6 (5-15); BUN 17 mg/dL (7-18); BUN/Creat Ratio 18.7 RATIO (10-20); Calcium,Total 9.5 mg/dL (8.5-10.1); Chloride 98 mmol/L (98-107); Creatinine, Serum 0.91 mg/dL (0.55-1.02); EST Glomerular Filtration Rate 64 mL/min (>60); Est Glom Filt Rate - Afr Amer 78 mL/min (>60); Glucose 111 mg/dL (74-106); Magnesium 2.1 mg/dL (1.6-2.6); Potassium 4.2 mmol/L (3.5-5.1); Sodium Level 135 mmol/L (136-145)
== END | disposition home or self-care (01) ==
LOC: LABSPEC 14:52
PROVIDERS: PCP Internal Medicine; Visit Provider Internal Medicine
DX: I70.1 Atherosclerosis of renal artery (principal)
CPT/HCPCS: 80048; 83735

== ENCOUNTER → 2022-02-06 | Outpatient (CLI) | payer MEDICARE, OTHER, SELFPAY ==
[2022-02-06 11:03] LABS: AST(SGOT) 21 U/L (15-37); Alanine Aminotransfer ALT/SGPT 32 U/L (13-56); Albumin, Serum 3.4 g/dL (3.2-5.0); Alkaline Phosphatase 50 U/L (45-117); Anion Gap 7 (5-15); BUN 18 mg/dL (7-18); Calcium,Total 9.4 mg/dL (8.5-10.1); Chloride 103 mmol/L (98-107); Cholesterol 182 mg/dL (200); Creatinine, Serum 0.86 mg/dL (0.55-1.02); EST Glomerular Filtration Rate 69 mL/min (>60); Est Glom Filt Rate - Afr Amer 83 mL/min (>60); Globulin 3.3 g/dL (2.2-4.2); Glucose 99 mg/dL (74-106); High Density Lipoprotein 74 mg/dL; Potassium 3.8 mmol/L (3.5-5.1); Protein, Total 6.7 g/dL (6.4-8.2); Sodium Level 138 mmol/L (136-145); Triglycerides 123 mg/dL; Very Low Density Lipoprotein 25 mg/dL (5-40)
== END | disposition home or self-care (01) ==
LOC: MTLAB 07:15
PROVIDERS: PCP Internal Medicine; Referring Provider Internal Medicine; Visit Provider Internal Medicine
DX: E78.00 Pure hypercholesterolemia, unspecified (principal)
CPT/HCPCS: 36415; 80053; 80061

== ENCOUNTER 2022-03-25 10:06 | Emergency (ER) | payer MEDICARE, OTHER, SELFPAY ==
[2022-03-25 10:06] VITALS: BP 135/80; PULSE 82; RESP 16; TEMP 36.3; O2SAT 100; BMI 24.3
--- NOTE | 2022-03-25 10:29 | CT_ITS ---
STUDY: CT CERVICAL SPINE WITHOUT CONTRAST REASON FOR EXAM: Female, 76 years old. Trauma RADIATION DOSAGE (If Supplied By Facility): CTDIvol = ( 14.12 ) mGy, DLP = ( 231.77 ) mGycm TECHNIQUE: High resolution transaxial imaging was performed without contrast material. Sagittal and coronal images were reconstructed. Individualized dose optimization techniques were used for this CT. COMPARISON: None FINDINGS: Normal craniovertebral junction. Normal anterior atlantoaxial articulation. Normal odontoid process. There is reversal of the normal cervical lordosis. There is cervical dextroscoliosis. There is no acute fracture. Normal vertebral bodies and posterior osseous elements. C2-3: Normal endplates. Normal disc height and morphology. Facet spurring. Normal central canal and intervertebral neuroforamina. C3-4: Mild spurring. Facet spurring. No canal stenosis. Left greater than right foraminal narrowing. C4-5: Normal endplates. Normal disc height and morphology. Facet spurring on the left. Normal central canal. Mild left foraminal narrowing. C5-6: Disc bulge and spurring to the left. Facet spurring. No canal stenosis. Bilateral foraminal narrowing. C6-7: Disc bulge and spurring. Facet spurring on the left. No gasless. Mild left foraminal narrowing. C7-T1: Normal endplates. Normal disc height and morphology. Normal central canal and intervertebral neuroforamina. Normal visualized soft tissue structures. CT/Spine Cervical without Contras IMPRESSION: Multilevel degenerative changes, as described above. Electronically Signed: Sunday Norris MD at 11:53 EDT ,
--- NOTE | 2022-03-25 10:29 | CT_ITS ---
STUDY: CT BRAIN WITHOUT CONTRAST REASON FOR EXAM: Female, 76 years old. Trauma RADIATION DOSAGE (If Supplied By Facility): CTDIvol = ( 44.99 ) mGy, DLP = ( 829.85 ) mGycm TECHNIQUE: Transaxial CT imaging of the brain was performed without administration of intravenous contrast material. Individualized dose optimization techniques were used for this CT. COMPARISON: No relevant priors. FINDINGS: Normal soft tissue structures. Normal calvarium. Normal size ventricles and extra-axial spaces for the patient''s age. Normal white matter tracts of the cerebral hemispheres. Normal basal ganglia and thalami. Normal brainstem. Normal cerebellum. There is no intracranial hemorrhage. There are no findings of an acute ischemic infarction. Normal visualized paranasal sinuses. CT/Brain/Head without Contrast IMPRESSION: Normal unenhanced CT scan of the brain. Electronically Signed: Sunday Norris MD at 11:46 EDT ,
--- NOTE | 2022-03-25 10:36 | EDS_ITS ---
HPI HPI - Fall History of Present Illness Chief Complaint: Fall Narrative Narrative: Patient presents with posterior scalp laceration after mechanical fall. She was in the kitchen back away and fell after she slipped and hit the back of her head. She has no neck pain she had no loss of consciousness no nausea or vomiting or vision changes. She had recent shoulder surgery and she was trying to protect her right shoulder, she did not injure anything else. Tetanus is not up-to-date. She is not anticoagulated. [facility] Medical History Chest pain (12/05/21) COVID-19 (05/25/21) Disseminated herpes zoster Essential hypertension Immunocompromised state due to drug therapy Rheumatoid arthritis Rheumatoid arthritis Home Medications abatacept 125 mg/mL subcutaneous syringe (Orencia) 125 mg SQ WE RA 08/18/16 [History Last Taken 11/30/21] calcium carbonate 600 mg-vitamin D3 5 mcg (200 unit) tablet (Calcium 600 + D(3)) 1 ea PO BID supplement 08/18/16 [History Last Taken 12/05/21] folic acid 1 mg tablet 2 mg PO DAILY supplement 08/18/16 [History Last Taken 12/05/21] methotrexate sodium 2.5 mg tablet 20 mg PO WE rheumatoid arthritis 08/18/16 [History Last Taken 11/30/21] tramadol 50 mg tablet 1 - 2 tab PO Q6H PRN PRN Pain 08/18/16 [History Last Taken Unknown] denosumab 60 mg/mL subcutaneous syringe (Prolia) 60 mg subcut [id number] bone health 04/03/18 [History Last Taken 06/30/20] ezetimibe 10 mg tablet 10 mg PO DAILY . 05/25/21 [History Last Taken 12/05/21] prednisone 5 mg tablet 10 mg PO DAILY PRN PRN . 05/25/21 [History Last Taken Unknown] ascorbic acid (vitamin C) 500 mg tablet (Vitamin C) 500 mg PO DAILY 12/05/21 [History Last Taken 12/05/21] losartan 100 mg-hydrochlorothiazide 25 mg tablet 1 tab PO DAILY #90 tabs 12/20/21 [Rx Last Taken Unknown] ranolazine 1,000 mg tablet,extended release,12 hr (Ranexa) 1,000 mg PO BID #60 tabs 01/20/22 [Rx Last Taken Unknown] Allergy/AdvReac Type Severity Reaction Status Date / Time cat dander Allergy Unknown Verified 03/25/22 10:10 hydroxychloroquine AdvReac photosensit Verified 03/25/22 10:10 [From Plaquenil] ivity niacin AdvReac Rash Verified 03/25/22 10:10 Penicillins AdvReac Rash Verified 03/25/22 10:10 Family History Mother Hypertension Sister Lupus Surgical History History of section History of hernia repair History of left heart catheterization (12/06/21) history of wrist surgery Social History Smoking Status: Never smoker alcohol intake: never substance use type: does not use caffeine: Yes Type: coffee Number of servings: 1 ROS ROS ED ROS Narrative Social: Noncontributory Medications: Reviewed Past medical history: Reviewed Review of systems General: Head injury, no loss of consciousness Head: Scalp laceration HEENT: No facial injury Neck: No neck pain Cardiovascular: Patient denies any chest pain or palpitations Chest wall: No chest wall contusions Respiratory: There is no shortness of breath GI: There is no nausea vomiting diarrhea or abdominal pain, no abdominal wall contusions Skin: No other lacerations or abrasions Neurological: Patient has no memory loss, confusion, or any focal weakness Psychiatric: No recent behavioral changes Back: No back pain, no problems with ambulation Musculoskeletal: No extremity injury All other systems are reviewed and normal EXAM Physical Exam Narrative Exam Narrative: Physical exam Vitals reviewed General: Does not appear in significant distress, no obvious injuries HEENT: No facial injury Head: 2 cm posterior scalp laceration is gaping. Slight bleeding. Eyes: Extraocular movements intact Neck: No C-spine tenderness with full range of motion Heart: Regular rate normal pulses Chest wall: No chest wall pain Lungs clear lungs bilaterally with normal inspiration and expiration without tachypnea GI: Abdomen is soft and nontender there is no mass no guarding no abdominal wall contusion : Stable pelvis Musculoskeletal: Moves all extremities without any signs of trauma, slight tenderness to the right shoulder, she tells me this is normal and she did not injure it. Skin: No other abrasions or laceration Neurological: Patient is alert and oriented with no focal deficits Const Vital Signs: 03/25/22 10:06 03/25/22 10:25 Temperature 97.4 F L Temperature Source Temporal Pulse Rate 82 Respiratory Rate 16 Respiratory Effort Normal Non-Labored Respiratory Depth Normal Respiratory Pattern Normal Blood Pressure 135/80 H Blood Pressure Mean 98 Pulse Ox 100 Oxygen Delivery Method Room Air Room Air MDM MDM Radiography Diagnostic Testing: Clinical Impression(s) from Imaging Studies Brain CT 03/25/22 10:29 IMPRESSION: Normal unenhanced CT scan of the brain. Electronically Signed: Sunday Norris MD at 11:46 EDT , Cervical Spine CT 03/25/22 10:29 IMPRESSION: Multilevel degenerative changes, as described above. Electronically Signed: Sunday Norris MD at 11:53 EDT , Treatment and Re-Evaluation Narrative: Tetanus was updated, CT is unremarkable scalp laceration was sutured. Patient has no other injuries I will discharge in stable condition. Procedures Lacerations Scalp laceration: Length: 0.79 in Depth: Skin Shape: Linear Prep: Tanya-Rodger Number of Sutures/Tim: 1 Comment: 1 staple was placed with no difficulty. I did not need to use her any lidocaine. Discharge Plan Triage Chief Complaint: Fall ED Provider: Atul Phelps Dx/Rx/DC Orders Clinical Impression: Concussion without loss of consciousness, Scalp laceration, Fall Instructions: ED Head Injury (Adult), ED Laceration Scalp Stitches or Newcomb Prescriptions: No Action Prolia 60 mg/mL syringe 60 mg SC [id number] calcium carbonate-vitamin D3 [Calcium 600 + D(3)] 1 EACH tablet 1 ea PO BID tramadol 50 MG tablet 1 - 2 tab PO Q6H PRN PRN (Reason: Pain) methotrexate sodium 2.5 MG tablet 20 mg PO WE folic acid 1 MG tablet 2 mg PO DAILY Orencia 125 MG/ML syringe 125 mg SQ WE Rx Instructions: not taking this week due to diagnosis prednisone 5 mg Tablet 10 mg PO DAILY PRN PRN (Reason: .) Protocol: Titrate ezetimibe 10 mg tablet 10 mg PO DAILY ascorbic acid (vitamin C) [Vitamin C] 500 mg Tablet 500 mg PO DAILY losartan-hydrochlorothiazide 100-25 mg tablet 1 tab PO DAILY Qty: 90 3RF ranolazine [Ranexa] 1,000 mg tablet extended release 12 hr 1,000 mg PO BID Qty: 60 3RF Primary Care Provider: Jena Valentin Referrals: Jena Valentin MD [Primary Care Provider] - 10 Day for suture removal Disposition Disposition: Home, Self Care
[2022-03-25] MEDS: Diphth,Pertuss(Acell),Tet Vac 0.5 ML Vial IM (10:40)
== END 2022-03-25 12:11 | disposition home or self-care (01) ==
LOC: ED 10:56
PROVIDERS: Emergency Provider Emergency Medicine; PCP Internal Medicine; Visit Provider Emergency Medicine
DX: S01.01XA Laceration without foreign body of scalp, initial encounter (principal); I10 Essential (primary) hypertension; S06.0X0A Concussion without loss of consciousness, initial encounter; W01.0XXA Fall on same level from slipping, tripping and stumbling without subsequent striking against object, initial encounter; Z23 Encounter for immunization
CPT/HCPCS: 70450; 72125; 90715; 96372; 99282

== ENCOUNTER → 2022-04-03 | Outpatient (CLI) | payer MEDICARE, OTHER, SELFPAY ==
[2022-04-03 12:20] LABS: Absolute Lymphocyte Count 2.01 X10^3/uL (0.83-4.51); Absolute Neutrophil Count 2.2 X10^3/uL (2.0-7.7); Basophil# 0.05 X10^3/uL; Eosinophil# 0.31 X10^3/uL; Eosinophils% 6.2 % (0-5); Hematocrit 39.5 % (37-47); Hemoglobin 13.2 g/dL (12.0-15.0); Lymphocyte # 2.01 X10^3/ul (0.83-4.51); Mean Corp Hgb Conc 33.4 g/dL (32-36); Mean Corpuscular Hgb 30.3 pg (27.0-32.0); Mean Corpuscular Volume 90.8 fL (81-99); Mean Platelet Vol. 10.1 fl (6.2-12.0); Monocyte# 0.46 X10^3/uL; Monocyte% 9.2 % (0-10); NRBC Flagged by Analyzer 0 % (0-5); Neutrophil # 2.18 X10^3/uL (2.7-7.7); Neutrophil % 43.4 % (47-70); Platelet Count 357 K/mm3 (150-450); RBC Distribution Width CV 12.2 % (11.6-14.6); RBC Distribution Width SD 40.5 fl (35.1-43.9); Red Blood Count 4.35 M/mm3 (4.2-5.4)
[2022-04-03 13:18] LABS: ALB/GLOB Ratio 1.1 RATIO (0.9-2.4); AST(SGOT) 18 U/L (15-37); Alanine Aminotransfer ALT/SGPT 26 U/L (13-56); Albumin, Serum 3.4 g/dL (3.2-5.0); Alkaline Phosphatase 62 U/L (45-117); Anion Gap 11 (5-15); BUN 16 mg/dL (7-18); BUN/Creat Ratio 20.9 RATIO (10-20); Calcium,Total 9.4 mg/dL (8.5-10.1); Chloride 99 mmol/L (98-107); Creatinine, Serum 0.77 mg/dL (0.55-1.02); EST Glomerular Filtration Rate 78 mL/min (>60); Est Glom Filt Rate - Afr Amer 95 mL/min (>60); Globulin 3.2 g/dL (2.2-4.2); Glucose 86 mg/dL (74-106); Potassium 3.7 mmol/L (3.5-5.1); Protein, Total 6.6 g/dL (6.4-8.2); Sodium Level 135 mmol/L (136-145)
== END | disposition home or self-care (01) ==
PROVIDERS: PCP Internal Medicine; Referring Provider Internal Medicine Rheumatology; Visit Provider Internal Medicine Rheumatology
DX: M06.00 Rheumatoid arthritis without rheumatoid factor, unspecified site (principal); M16.11 Unilateral primary osteoarthritis, right hip; M17.0 Bilateral primary osteoarthritis of knee; M18.12 Unilateral primary osteoarthritis of first carpometacarpal joint, left hand; M81.0 Age-related osteoporosis without current pathological fracture; M47.897 Other spondylosis, lumbosacral region; M47.892 Other spondylosis, cervical region; M50.30 Other cervical disc degeneration, unspecified cervical region; E78.5 Hyperlipidemia, unspecified; G47.33 Obstructive sleep apnea (adult) (pediatric); Z79.899 Other long term (current) drug therapy
CPT/HCPCS: 36415; 80053; 85025

== ENCOUNTER 2022-05-11 10:00 | Outpatient (RCR) | payer MEDICARE, OTHER, SELFPAY ==
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
--- NOTE | 2022-04-12 13:24 | HP.PTREVAL ---
AYLA COFFMAN, It has been my pleasure to treat LIBORIO FAJARDO over the last 9 visits for Right Reverse Total Shoulder. Please see the progress note below for an update on the physical therapy plan of care! Subjective: She feels that day to day she notices that she is getting better and better. She can lift up a small plate but hard to get it up into a higher shelf. Sleep is a lot better. Went to see the PA and she was thrilled at how well she was doing. No significant pain just achy. Per MD: now were working on active range of motion but no more than #2 of weight. Objective/Function: Posture: fair throughout- no sling or guarding. Observation: incision healing well no s/s of infection. Palpation: tender along anterior joint. ROM: Elbow/Wrist/Hand: WFL. AROM: flexion: 120 degrees, Abd: 125 degrees, IR: pocket, ER: 40 degrees. Strength: elbow: 4+/5, Shoulder: 4/5 at neutral isometric Plan Plan: 04/12/22: Continue 2x a week for 4 weeks with progression per protocol. Progress to full ER, flexion and initiate IR ROM beginning 04/06/22 per protocol Balance/Gait/Functional tests - Balance/Special Test Scores Quick DASH Score: 25.0000 Goals Goal 1:: Patient will be I with HEP and progression Goal Time Frame: 4-6 Weeks Goal 2:: Patient will demo full AROM of the shoulder per protocl Goal Time Frame: 4-6 Weeks Goal 3:: Patient will maintain proper posture to demo increased scap s/s Goal Time Frame: 4-6 Weeks Goal 4:: Patient will report 80% improvement Goal Time Frame: 4-6 Weeks Anticipated Interventions Patient/Client Instruction: Educate patient on: Benefits of Fitness Program Therapeutic Exercise to Include: Strength training, Endurance training, Balance training, Coordination, Agility training, Body mechanics, Postural training, Flexibilty training, Gait and locomotor training, Neuromotor development, Passive ROM, Active ROM, Dynamic Lumbar Stabilization, Scapular Strength/Stabilization For the Purpose of:: To improve muscle performance and motor function TENS: Yes Cryotherapy (ice pack, ice massage): Yes Thermo therapy (hot pack): Yes Ultrasound (thermal/non thermal): No Please do not hesitate to contact me at [phone] by phone or if you have questions or concerns regarding this new plan of care! Sincerely, DELICIA RuddT
--- NOTE | 2022-05-11 11:47 | HP.PTREVAL ---
AYLA COFFMAN, It has been my pleasure to treat LIBORIO FAJARDO over the last 18 visits for Right Reverse Total Shoulder. Please see the progress note below for an update on the physical therapy plan of care! Subjective: Patient reports that she saw the MD yesterday who is happy with progress and wants her to stretch a little bit further. She has no pain she has some stiffness but she is able to sleep on that side now. Back to teaching spin class. Objective/Function: Posture: fair throughout- no sling or guarding. Observation: incision healing well no s/s of infection. Palpation: tender along anterior joint. ROM: Elbow/Wrist/Hand: WFL. AROM: flexion: 130 degrees, Abd: 140 degrees, IR: waiste, ER:50 degrees. Strength: elbow: 4+/5, Shoulder: 4/5 at neutral isometric Plan Plan: 05/11/22: Hold 4 weeks and reassess- will do HEP in the gym for stretching and strength. Initiate isometrics next week(04-24) Continue 2x a week for 4 weeks with progression per protocol. Progress to full ER, flexion and initiate IR ROM beginning 04/06/22 per protocol Balance/Gait/Functional tests - Balance/Special Test Scores Quick DASH Score: 9.0900 Goals Goal 1:: Patient will be I with HEP and progression Goal Time Frame: 4-6 Weeks Goal 2:: Patient will demo full AROM of the shoulder per protocl Goal Time Frame: 4-6 Weeks Goal 3:: Patient will maintain proper posture to demo increased scap s/s Goal Time Frame: 4-6 Weeks Goal 4:: Patient will report 80% improvement Goal Time Frame: 4-6 Weeks Anticipated Interventions Patient/Client Instruction: Educate patient on: Benefits of Fitness Program Therapeutic Exercise to Include: Strength training, Endurance training, Balance training, Coordination, Agility training, Body mechanics, Postural training, Flexibilty training, Gait and locomotor training, Neuromotor development, Passive ROM, Active ROM, Dynamic Lumbar Stabilization, Scapular Strength/Stabilization For the Purpose of:: To improve muscle performance and motor function TENS: Yes Cryotherapy (ice pack, ice massage): Yes Thermo therapy (hot pack): Yes Ultrasound (thermal/non thermal): No Please do not hesitate to contact me at [phone] by phone or if you have questions or concerns regarding this new plan of care! Sincerely, DELICIA RuddT
--- NOTE | 2022-08-21 08:15 | HP.PT.NRP ---
LIBORIO FAJARDO was seen in my office for initial evaluation on 03/14/22. The following Plan of Care was established for this patient: Initial Frequency: 2x /Week Initial Duration: 4 Weeks Patient/Client Instruction: Educate patient on: Benefits of Fitness Program Therapeutic Exercise to Include: Strength training, Endurance training, Balance training, Coordination, Agility training, Body mechanics, Postural training, Flexibilty training, Gait and locomotor training, Neuromotor development, Passive ROM, Active ROM, Dynamic Lumbar Stabilization, Scapular Strength/Stabilization For the Purpose of:: To improve muscle performance and motor function TENS: Yes Cryotherapy (ice pack, ice massage): Yes Thermo therapy (hot pack): Yes Ultrasound (thermal/non thermal): No This patient was last seen in our office . Pertinent comments regarding their Physical therapy will appear below: Patient continues to do well with home exercise program- appropriate to be discharged. At this point I will be discontinuing this patient from physical therapy. I would be happy to see this patient again in the future if found appropriate by the physician. Thank you! Amy Pierce, MANJIT Balance/Gait/Functional tests - Balance/Special Test Scores Quick DASH Score: 9.0900
== END 2022-05-11 19:00 | disposition home or self-care (01) ==
LOC: PT 10:00
PROVIDERS: PCP Internal Medicine
DX: M12.811 Other specific arthropathies, not elsewhere classified, right shoulder (principal)
CPT/HCPCS: 97110; 97140; 97164

== ENCOUNTER → 2022-06-16 | Outpatient (CLI) | payer MEDICARE, OTHER, SELFPAY ==
[2022-06-16 18:10] LABS: Hematocrit 41.9 % (37-47); Hemoglobin 13.6 g/dL (12.0-15.0); Mean Corp Hgb Conc 32.5 g/dL (32-36); Mean Corpuscular Hgb 29.4 pg (27.0-32.0); Mean Corpuscular Volume 90.7 fL (81-99); Mean Platelet Vol. 10.9 fl (6.2-12.0); Platelet Count 326 K/mm3 (150-450); RBC Distribution Width CV 13.1 % (11.6-14.6); RBC Distribution Width SD 42.5 fl (35.1-43.9); Red Blood Count 4.62 M/mm3 (4.2-5.4); White Blood Count 6.8 K/mm3 (4.4-11.0)
[2022-06-16 18:21] LABS: Anion Gap 4 (5-15); BUN 13 mg/dL (7-18); BUN/Creat Ratio 15.2 RATIO (10-20); Calcium,Total 9.6 mg/dL (8.5-10.1); Chloride 102 mmol/L (98-107); Creatinine, Serum 0.86 mg/dL (0.55-1.02); EST Glomerular Filtration Rate 69 mL/min (>60); Est Glom Filt Rate - Afr Amer 83 mL/min (>60); Glucose 96 mg/dL (74-106); Sodium Level 136 mmol/L (136-145)
== END | disposition home or self-care (01) ==
LOC: MTLAB 15:08
PROVIDERS: PCP Internal Medicine; Referring Provider Internal Medicine Cardiovascular Disease; Visit Provider Internal Medicine Cardiovascular Disease
DX: R42 Dizziness and giddiness (principal); I10 Essential (primary) hypertension
CPT/HCPCS: 36415; 80048; 85027

== ENCOUNTER → 2022-06-21 | Outpatient (CLI) | payer MEDICARE, OTHER, SELFPAY ==
--- NOTE | 2022-06-21 15:07 | STRESSREP ---
Stress Test Report Exercise myocardial perfusion stress test. 76-year-old lady with a history of chest pain Stress protocol: Resting EKG demonstrates normal sinus rhythm with a rate of 68 bpm resting blood pressure is 118/68 mmHg. The patient exercised according to the regular Balaji protocol for a total duration of 9 minutes attaining a maximum heart rate of 146 bpm which was 100% of maximum predicted heart rate; the maximum workload was 11.7 metabolic equivalents. At rest there were no ST or T wave changes noted to suggest ischemia and at peak exercise upsloping ST changes only were noted which did not meet the criteria for ischemia. No clinical angina was noted the test was terminated due to the target heart rate being achieved/fatigue. The peak blood pressure was 152/68 mmHg. Rate-pressure product was 21,100. No arrhythmias were noted. Conclusion: Exercise stress test with no evidence of ischemia at a high workload. Excellent functional aerobic capacity. No clinical angina noted.
== END | disposition home or self-care (01) ==
LOC: CVS 10:45
PROVIDERS: PCP Internal Medicine; Visit Provider Internal Medicine Cardiovascular Disease
DX: R53.83 Other fatigue (principal); R07.9 Chest pain, unspecified
CPT/HCPCS: 93017

== ENCOUNTER → 2022-06-23 | Outpatient (CLI) | payer MEDICARE, OTHER, SELFPAY ==
[2022-06-23 13:52] LABS: Absolute Lymphocyte Count 2.22 X10^3/uL (0.83-4.51); Absolute Neutrophil Count 3.7 X10^3/uL (2.0-7.7); Basophil# 0.04 X10^3/uL; Basophil% 0.6 % (0-1); Eosinophil# 0.11 X10^3/uL; Eosinophils% 1.7 % (0-5); Hematocrit 41.1 % (37-47); Hemoglobin 13.8 g/dL (12.0-15.0); Lymphocyte # 2.22 X10^3/ul (0.83-4.51); Lymphocyte % 33.8 % (19-41); Mean Corp Hgb Conc 33.6 g/dL (32-36); Mean Corpuscular Hgb 29.7 pg (27.0-32.0); Mean Corpuscular Volume 88.6 fL (81-99); Mean Platelet Vol. 10.1 fl (6.2-12.0); Monocyte# 0.45 X10^3/uL; Monocyte% 6.9 % (0-10); NRBC Flagged by Analyzer 0 % (0-5); Neutrophil # 3.73 X10^3/uL (2.7-7.7); Neutrophil % 56.8 % (47-70); Platelet Count 344 K/mm3 (150-450); RBC Distribution Width CV 13.1 % (11.6-14.6); RBC Distribution Width SD 42.3 fl (35.1-43.9); Red Blood Count 4.64 M/mm3 (4.2-5.4); White Blood Count 6.6 K/mm3 (4.4-11.0)
[2022-06-23 14:12] LABS: ALB/GLOB Ratio 0.9 RATIO (0.9-2.4); AST(SGOT) 22 U/L (15-37); Alanine Aminotransfer ALT/SGPT 28 U/L (13-56); Albumin, Serum 3.4 g/dL (3.2-5.0); Alkaline Phosphatase 52 U/L (45-117); Anion Gap 8 (5-15); BUN 22 mg/dL (7-18); BUN/Creat Ratio 21.4 RATIO (10-20); Calcium,Total 9.7 mg/dL (8.5-10.1); Chloride 99 mmol/L (98-107); Creatinine, Serum 1.03 mg/dL (0.55-1.02); EST Glomerular Filtration Rate 56 mL/min (>60); Est Glom Filt Rate - Afr Amer 67 mL/min (>60); Globulin 3.6 g/dL (2.2-4.2); Glucose 99 mg/dL (74-106); Potassium 4.1 mmol/L (3.5-5.1); Sodium Level 136 mmol/L (136-145)
[2022-06-23 16:04] LABS: Cholesterol 172 mg/dL (200); High Density Lipoprotein 61 mg/dL; Triglycerides 170 mg/dL; Very Low Density Lipoprotein 34 mg/dL (5-40)
== END | disposition home or self-care (01) ==
LOC: MTLAB 12:42
PROVIDERS: Physician Assistant Medical; PCP Internal Medicine; Referring Provider Internal Medicine Rheumatology; Visit Provider Internal Medicine Rheumatology
DX: M06.00 Rheumatoid arthritis without rheumatoid factor, unspecified site (principal); Z79.899 Other long term (current) drug therapy; M16.11 Unilateral primary osteoarthritis, right hip; M17.0 Bilateral primary osteoarthritis of knee; M18.12 Unilateral primary osteoarthritis of first carpometacarpal joint, left hand; M81.0 Age-related osteoporosis without current pathological fracture; M47.897 Other spondylosis, lumbosacral region; M47.892 Other spondylosis, cervical region; M50.30 Other cervical disc degeneration, unspecified cervical region; E78.5 Hyperlipidemia, unspecified; G47.33 Obstructive sleep apnea (adult) (pediatric); I10 Essential (primary) hypertension
CPT/HCPCS: 36415; 80053; 80061; 85025

== ENCOUNTER 2022-08-24 12:45 | Outpatient (RCR) | payer MEDICARE, OTHER, SELFPAY ==
[2022-08-24 13:22] VITALS: BP 147/78; PULSE 80; RESP 16; TEMP 35.9; BMI 23.6
--- NOTE | 2022-08-24 14:42 | HBO.CON.PC_ITS ---
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, jaw: (2) Osteonecrosis due to drugs: (3) Rheumatoid arthritis: QUALIFIERS: Rheumatoid arthritis location: multiple sites Rheumatoid factor presence: unspecified presence Qualified Code(s): M06.9 - Rheumatoid arthritis, unspecified (4) Essential hypertension: (5) History of shingles: (6) History of total right hip replacement: (7) History of left knee replacement: (8) History of right shoulder replacement: (9) History of surgery on left wrist: (10) Grade I diastolic dysfunction: PLAN: Plan This is a generally healthy 76-year-old female who presented with history of medication-related osteonecrosis of the right mandible. She is currently under the care of Dr. William Ku, a specialist in Otolaryngology at [facility] in [place], [place]. Patient's history and clinical findings are, indeed, consistent with medication-related osteonecrosis of the jaw. A lengthy discussion has been undertaken with the patient and her as to the potential role of hyperbaric oxygen therapy, as an adjunctive measure related to her condition. The indications and risks of hyperbaric oxygen therapy have been discussed thoroughly with the patient and her . Protocols related to hyperbaric oxygen therapy have been explained. The patient has toured our hyperbaric oxygen facilities. I have spoken with Sailaja Britt, Dr. Ku's creative assistant, as Dr. Ku is currently out of town. It has been learned that the patient has a CT scan of the head and neck scheduled for September 01, 2022. It is planned that the CT scan will be reviewed, and the indications for hyperbaric oxygen therapy will be determined based upon the results of the diagnostic study. Therefore, we will await further indication from Dr. Ku or his staff as to the indication to proceed with hyperbaric oxygen therapy. It is understood that surgery debridement is anticipated as well as other surgical interventions. Hyperbaric oxygen therapy may well provide a useful adjunct to any plan surgical intervention in the future. There appears to be no contraindications to proceeding with hyperbaric oxygen therapy treatments from a medical perspective. The patient indicates she suffers from claustrophobia, which may warrant anxiolytic pre-medication. Total Time: 58 minutes History of Present Illness Date of Service: 08/24/22 Chief Complaint: Medication-related osteonecrosis of the jaw Progress of Wound: This is a 76-year-old female who was in her normal state of health until April 2022. She developed erythema of the gingiva in the right mandible in April 2023. At the time, she noted redness at the site, and thought it to be related to a dental extraction which had occurred several years previously. She was evaluated by her local dentist, and placed on clindamycin orally. The condition worsened, and the patient subsequently sought attention with an oral surgeon. She was again placed on clindamycin, and subsequently underwent an exploratory office procedure, and was told that the bone looked good. The patient and her subsequently left for a one-month long vacation in [place]. [place], she began to develop increased pain and swelling in the area, which prompted her to seek medical attention in an emergency department while in [place]. She was again placed on clindamycin, and treated with steroids. It should be noted that treatment with penicillins was initially avoided, due to a suspected penicillin allergy. However, in recent days, the patient has learned that she is not allergic to penicillin, according to her and her . Upon return to [place], the patient sought an appointment with Dr. Soto Crane, an ENT specialist. Dr. Crane expressed concern about his initial clinical findings, and referred the patient to a colleague at [facility], Dr. William Ku. Dr. Ku's diagnostic evaluation included the performance of a CT scan of the neck with contrast, which revealed multiloculated peripherally enhancing fluid collection in the submental space and floor the mouth, concerning for a large multiloculated abscess, with extensive nonspecific soft tissue stranding and edema present within the submental space, extending within the deep spaces of the neck to the level of the thyroid and clavicles, likely dentiginous in etiology, as there is a large lucency present in the right mandibular area with loss of inner and outer table of the mandible. The patient's clinical presentation and CT scan findings aroused concern regarding possible airway compromise, and she underwent urgent surgical intervention with drainage of the submental/perimandibular space, with endotracheal intubation and admission to the Intensive Care Unit. The patient spent 2 to 3 days in the intensive care unit. Since the patient's discharge, the patient has had a PICC catheter inserted into her left arm, and the patient has been receiving Ertapenem antibiotic intravenously on a daily basis, anticipated to be administered for a total of 6 weeks. She is also using chlorhexidine as a mouth rinse. It is known that the patient has previously been treated with medications including Orencia, methotrexate, Fosamax, and Prolia. The osteonecrosis of her jaw is felt likely to be secondary to the administration of Prolia. The patient's pre-existing medical problems include hypertension, rheumatoid arthritis, and Grade 1 diastolic dysfunction. 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, jaw Rheumatoid arthritis Rheumatoid arthritis Home Medications abatacept 125 mg/mL subcutaneous syringe (Orencia) 125 mg SQ WE RA 08/18/16 [History Last Taken 11/30/21] calcium carbonate 600 mg-vitamin D3 5 mcg (200 unit) tablet (Calcium 600 + D(3)) 1 ea PO BID supplement 08/18/16 [History Last Taken 12/05/21] folic acid 1 mg tablet 2 mg PO DAILY supplement 08/18/16 [History Last Taken 12/05/21] methotrexate sodium 2.5 mg tablet 20 mg PO WE rheumatoid arthritis 08/18/16 [History Last Taken 11/30/21] tramadol 50 mg tablet 1 - 2 tab PO Q6H PRN PRN Pain 08/18/16 [History Last Taken Unknown] denosumab 60 mg/mL subcutaneous syringe (Prolia) 60 mg subcut [id number] bone health 04/03/18 [History Last Taken 06/30/20] ezetimibe 10 mg tablet 10 mg PO DAILY . 05/25/21 [History Last Taken 12/05/21] prednisone 5 mg tablet 10 mg PO DAILY PRN PRN . 05/25/21 [History Last Taken Unknown] ascorbic acid (vitamin C) 500 mg tablet (Vitamin C) 500 mg PO DAILY 12/05/21 [History Last Taken 12/05/21] ranolazine 1,000 mg tablet,extended release,12 hr (Ranexa) 1,000 mg PO BID #60 tabs 12/14/22 [Rx Last Taken Unknown] losartan 100 mg tablet 100 mg PO DAILY #90 tabs 06/17/22 [Rx Last Taken Unknown] hydrochlorothiazide 25 mg tablet 25 mg PO DAILY #89 tabs 06/21/22 [Rx Last Taken Unknown] Allergy/AdvReac Type Severity Reaction Status Date / Time cat dander Allergy Unknown Verified 03/25/22 10:10 hydroxychloroquine AdvReac photosensit Verified 03/25/22 10:10 [From Plaquenil] ivity niacin AdvReac Rash Verified 03/25/22 10:10 Penicillins AdvReac Rash Verified 03/25/22 10:10 Family History Mother Hypertension Sister Lupus Surgical History History of section History of hernia repair History of left heart catheterization (12/06/21) History of left knee replacement History of right shoulder replacement History of surgery on left wrist History of total right hip replacement history of wrist surgery Social History Smoking Status: Never smoker alcohol intake: never substance use type: does not use caffeine: Yes Type: coffee Number of servings: 1 ROS ROS Narrative The patient's history is negative for myocardial infarction, congestive heart failure, diabetes mellitus, cerebrovascular accident, pulmonary disease, renal disease, and thyroid disease. Patient underwent cardiac catheterization in November 2021, the results of which indicated normal coronary arteries. Recent testing has indicated the patient's ejection fraction to be 65%. The patient denies a medical history of symptoms or diagnostic problems related to the following systems, but for those listed elsewhere: hematologic, endocrine, cardiovascular, pulmonary, otologic, neurologic, integumentary, neurologic, gastrointestinal, genitourinary, musculoskeletal, immunologic. She does claim to be claustrophobic. She travels frequently with her , often engaging in commercial air travel. She denies problems with barotrauma related to her ears. She has previously undergone placement of tympanic tubes due to fluid accumulation. Physical Exam Physical Exam Narrative The patient is of normal body habitus. Her BMI is 23.6. Const alert, oriented x3, no apparent distress and well nourished General Appearance: cooperative and well developed Orientation / Consciousness: awake, oriented to person, oriented to place and oriented to time HEENT normocephalic and head/scalp atraumatic Head and Scalp: normal to inspection, normocephalic and atraumatic External Ear: external ears normal External Auditory Canal: EAC's normal Mouth: oral and palatal mucosa abnormal other (Frankly necrotic bone is noted in the right mandibular area at the site of remote tooth extraction.) Eyes PERRL and EOMs intact bilaterally General Eye: normal appearance of both eyes Neck no JVD General: trachea midline Resp normal respiratory effort, normal air movement, no retractions and no use of accessory muscles Effort and Inspection: able to speak in complete sentences Cardio regular rate GI non-distended Extremity normal to inspection, full ROM, no clubbing, cyanosis or edema and no calf tenderness General Extremity: Negative for clubbing or cyanosis Skin skin turgor normal Neuro oriented x3, CN's II-XII intact bilaterally and moves all extremities Speech: speech normal Gait (Neuro): normal gait Motor Exam: strength 5/5 throughout Psych mental status grossly normal and affect normal Appearance: grossly normal, appropriate and well kempt Attitude: calm Activity / Motor Behavior: appropriate eye contact Speech: normal speech Mood & Affect: euthymic mood Thought Process: normal thought process Thought Content: normal thought content Attention / Concentration: attention grossly intact Nursing Assessment and Debridement Post-Debridement Measurements and Additional Note: Post-Debridement Measurements/Treatment - Nurse 1 - General Ulcer Assessment Start: 08/24/22 13:22 Freq: Status: Active Protocol: PRAVIN Activity Type Activity Date Activity User E-sign Co-sign Detail Recorded Client Recorded Date Recorded By Document 08/24/22 13:22 MONO [id number] 08/24/22 13:26 MOON 08/24/22 13:22 - Today's Visit Information Type of service HBO Consult Arrival Mode Ambulatory Patient Requires Transmission-Based No Precautions Height and Weight Height 5 ft 1 in Weight 125 lb Weight in Pounds 125.0 lbs Body Mass Index (BMI) 23.6 BMI Classification Normal BSA - Patel 1.55 Vital Signs Temperature (97.8 F-99.1 F) 96.6 F L Temperature Source Tympanic Pulse Rate (60-100 beats/min) 80 Pulse Location Monitor Respiratory Rate (12-18 breaths/min) 16 Respiratory rate source Observation Blood Pressure (90/60-120/80 mm Hg) 147/78 H Blood Pressure Mean (mm Hg) 101 Source Monitor Position Semi-Fowlers Blood Pressure Location Left Arm History Since Last Visit- (Skip if this is Patient's initial visit) Left Footwear Regular Shoe Right Footwear Regular Shoe Pain Scale: 0-10 Numeric Is Patient Pain Free? Yes
== END 2022-08-25 23:59 | disposition home or self-care (01) ==
LOC: WC 12:45
PROVIDERS: PCP Internal Medicine; Referring Provider Otolaryngology; Visit Provider Surgery
DX: M87.180 Osteonecrosis due to drugs, jaw (principal); M06.9 Rheumatoid arthritis, unspecified; I10 Essential (primary) hypertension; F40.240 Claustrophobia; Z79.52 Long term (current) use of systemic steroids; Z79.899 Other long term (current) drug therapy; Z86.16 Personal history of COVID-19; Z96.652 Presence of left artificial knee joint; Z96.611 Presence of right artificial shoulder joint; Z96.641 Presence of right artificial hip joint
CPT/HCPCS: 99213; 99214; G0463

== ENCOUNTER → 2022-10-12 | Outpatient (CLI) | payer MEDICARE, OTHER, SELFPAY ==
[2022-10-12 18:27] LABS: Absolute Lymphocyte Count 2.04 X10^3/uL (0.83-4.51); Absolute Neutrophil Count 3.7 X10^3/uL (2.0-7.7); Basophil# 0.07 X10^3/uL; Basophil% 1.1 % (0-1); Eosinophil# 0.01 X10^3/uL; Eosinophils% 0.2 % (0-5); Hematocrit 40.5 % (37-47); Hemoglobin 13.6 g/dL (12.0-15.0); Lymphocyte # 2.04 X10^3/ul (0.83-4.51); Lymphocyte % 32.5 % (19-41); Mean Corp Hgb Conc 33.6 g/dL (32-36); Mean Corpuscular Hgb 29.9 pg (27.0-32.0); Mean Platelet Vol. 11.2 fl (6.2-12.0); Monocyte# 0.44 X10^3/uL; NRBC Flagged by Analyzer 0 % (0-5); Platelet Count 267 K/mm3 (150-450); RBC Distribution Width CV 12.8 % (11.6-14.6); RBC Distribution Width SD 42.1 fl (35.1-43.9); Red Blood Count 4.55 M/mm3 (4.2-5.4); White Blood Count 6.3 K/mm3 (4.4-11.0)
[2022-10-12 18:56] LABS: ALB/GLOB Ratio 1.1 RATIO (0.9-2.4); AST(SGOT) 26 U/L (15-37); Alanine Aminotransfer ALT/SGPT 25 U/L (13-56); Albumin, Serum 3.8 g/dL (3.2-5.0); Alkaline Phosphatase 56 U/L (45-117); Anion Gap 8 (5-15); BUN 21 mg/dL (7-18); BUN/Creat Ratio 26.2 RATIO (10-20); Calcium,Total 9.9 mg/dL (8.5-10.1); Chloride 102 mmol/L (98-107); EST Glomerular Filtration Rate 74 mL/min (>60); Est Glom Filt Rate - Afr Amer 90 mL/min (>60); Globulin 3.4 g/dL (2.2-4.2); Glucose 82 mg/dL (74-106); Potassium 3.8 mmol/L (3.5-5.1); Protein, Total 7.2 g/dL (6.4-8.2); Sodium Level 136 mmol/L (136-145)
== END | disposition home or self-care (01) ==
LOC: MTLAB 14:25
PROVIDERS: PCP Internal Medicine; Referring Provider Internal Medicine Rheumatology; Visit Provider Internal Medicine Rheumatology
DX: M06.00 Rheumatoid arthritis without rheumatoid factor, unspecified site (principal); Z79.899 Other long term (current) drug therapy
CPT/HCPCS: 36415; 80053; 85025

== ENCOUNTER → 2022-11-16 | Outpatient (CLI) | payer MEDICARE, OTHER, SELFPAY ==
[2022-11-16 16:04] LABS: Absolute Lymphocyte Count 1.93 X10^3/uL (0.83-4.51); Absolute Neutrophil Count 3.4 X10^3/uL (2.0-7.7); Basophil# 0.06 X10^3/uL; Eosinophil# 0.11 X10^3/uL; Eosinophils% 1.8 % (0-5); Hemoglobin 14.2 g/dL (12.0-15.0); Lymphocyte # 1.93 X10^3/ul (0.83-4.51); Lymphocyte % 32.4 % (19-41); Mean Corp Hgb Conc 33.8 g/dL (32-36); Mean Corpuscular Hgb 30.2 pg (27.0-32.0); Mean Corpuscular Volume 89.4 fL (81-99); Mean Platelet Vol. 11.3 fl (6.2-12.0); Monocyte# 0.43 X10^3/uL; Monocyte% 7.2 % (0-10); NRBC Flagged by Analyzer 0 % (0-5); Neutrophil % 57.3 % (47-70); Platelet Count 271 K/mm3 (150-450); RBC Distribution Width CV 12.2 % (11.6-14.6); RBC Distribution Width SD 39.7 fl (35.1-43.9)
[2022-11-16 16:14] LABS: ALB/GLOB Ratio 1.2 RATIO (0.9-2.4); AST(SGOT) 33 U/L (15-37); Alanine Aminotransfer ALT/SGPT 38 U/L (13-56); Albumin, Serum 3.7 g/dL (3.2-5.0); Alkaline Phosphatase 64 U/L (45-117); Anion Gap 7 (5-15); BUN 20 mg/dL (7-18); Chloride 104 mmol/L (98-107); Creatinine, Serum 1.05 mg/dL (0.55-1.02); EST Glomerular Filtration Rate 54 mL/min (>60); Est Glom Filt Rate - Afr Amer 66 mL/min (>60); Globulin 3.2 g/dL (2.2-4.2); Glucose 123 mg/dL (74-106); Potassium 3.8 mmol/L (3.5-5.1); Protein, Total 6.9 g/dL (6.4-8.2); Sodium Level 138 mmol/L (136-145)
== END | disposition home or self-care (01) ==
LOC: MTLAB 13:11
PROVIDERS: PCP Internal Medicine; Referring Provider Internal Medicine Rheumatology; Visit Provider Internal Medicine Rheumatology
DX: M06.00 Rheumatoid arthritis without rheumatoid factor, unspecified site (principal); Z79.899 Other long term (current) drug therapy
CPT/HCPCS: 36415; 80053; 85025

== ENCOUNTER 2022-12-04 08:38 | Outpatient (RCR) | payer MEDICARE, OTHER, SELFPAY | END 2022-12-04 19:00 | disposition home or self-care (01) | LOC: PT 08:38 | PROVIDERS: PCP Internal Medicine; Referring Provider Orthopaedic Surgery; Visit Provider Orthopaedic Surgery | DX: M12.811 Other specific arthropathies, not elsewhere classified, right shoulder (principal) ==

== ENCOUNTER → 2023-02-08 | Outpatient (CLI) | payer MEDICARE, OTHER, SELFPAY ==
[2023-02-08 17:53] LABS: Absolute Lymphocyte Count 2.23 X10^3/uL (0.83-4.51); Absolute Neutrophil Count 3.1 X10^3/uL (2.0-7.7); Basophil# 0.05 X10^3/uL; Basophil% 0.8 % (0-1); Eosinophil# 0.13 X10^3/uL; Eosinophils% 2.2 % (0-5); Hematocrit 39.6 % (37-47); Hemoglobin 13.3 g/dL (12.0-15.0); Lymphocyte # 2.23 X10^3/ul (0.83-4.51); Lymphocyte % 37.5 % (19-41); Mean Corp Hgb Conc 33.6 g/dL (32-36); Mean Corpuscular Hgb 30.9 pg (27.0-32.0); Mean Corpuscular Volume 92.1 fL (81-99); Mean Platelet Vol. 10.5 fl (6.2-12.0); Monocyte# 0.39 X10^3/uL; Monocyte% 6.6 % (0-10); NRBC Flagged by Analyzer 0 % (0-5); Neutrophil # 3.14 X10^3/uL (2.7-7.7); Neutrophil % 52.7 % (47-70); Platelet Count 314 K/mm3 (150-450); RBC Distribution Width CV 13.4 % (11.6-14.6); RBC Distribution Width SD 44.7 fl (35.1-43.9)
[2023-02-08 18:20] LABS: ALB/GLOB Ratio 1.2 RATIO (0.9-2.4); AST(SGOT) 27 U/L (15-37); Alanine Aminotransfer ALT/SGPT 26 U/L (13-56); Albumin, Serum 3.8 g/dL (3.2-5.0); Alkaline Phosphatase 77 U/L (45-117); Anion Gap 6 (5-15); BUN 15 mg/dL (7-18); BUN/Creat Ratio 17.4 RATIO (10-20); Calcium,Total 9.6 mg/dL (8.5-10.1); Chloride 100 mmol/L (98-107); Creatinine, Serum 0.86 mg/dL (0.55-1.02); EST Glomerular Filtration Rate 68 mL/min (>60); Est Glom Filt Rate - Afr Amer 82 mL/min (>60); Globulin 3.1 g/dL (2.2-4.2); Glucose 100 mg/dL (74-106); Potassium 3.9 mmol/L (3.5-5.1); Protein, Total 6.9 g/dL (6.4-8.2); Sodium Level 135 mmol/L (136-145)
== END | disposition home or self-care (01) ==
LOC: MTLAB 14:44
PROVIDERS: PCP Internal Medicine; Visit Provider Internal Medicine Rheumatology
DX: M06.00 Rheumatoid arthritis without rheumatoid factor, unspecified site (principal); Z79.899 Other long term (current) drug therapy
CPT/HCPCS: 36415; 80053; 85025

== ENCOUNTER → 2023-02-14 | Outpatient (CLI) | payer MEDICARE, OTHER, SELFPAY ==
--- NOTE | 2023-02-14 09:31 | BI_ITS ---
MAMMOGRAPHY - BILATERAL SCREENING REASON FOR EXAM: Female, 77 years old. Routine annual screening examination. PERTINENT HISTORY: Non-contributory. Remote left excisional breast biopsy. TECHNIQUE: Digital bilateral breast jackelin (3D mammographic acquisition) in the CC and MLO projections. 2-D mediolateral oblique (MLO) and craniocaudad (CC) views of both breasts were obtained. CAD: Full Field Digital Mammography with Computer Added Detection was performed. COMPARISON: Comparison is made with prior study dated August 04, 2021 and August 03, 2020. FINDINGS: Breast Composition: The breasts are heterogeneously dense, which may obscure small masses. There are no dominant masses or suspicious calcifications. No other significant abnormalities are identified. There has been no significant change since the prior study. BI/SCRN MAMM (CAD)W/JACKELIN BILAT IMPRESSION: Stable bilateral screening mammogram. Yearly follow-up mammogram recommended. (A) ASSESSMENT CATEGORY: BIRADS Category 1: Negative. A letter regarding these results will be sent to the patient by the facility within 30 days. Approximately 10% of breast cancers are not detected by mammography. A normal mammogram should not delay biopsy of a clinically suspicious abnormality. [id number] Electronically Signed: Yaya Bartlett MD at 11:27 EDT ,
--- NOTE | 2023-02-14 09:32 | BD_ITS ---
STUDY: DUAL ENERGY X-RAY ABSORPTIOMETRY / DXA REASON FOR EXAM: Female, 77 years old. [id number] TECHNIQUE: Bone Mineral Density (BMD) measurements of lumbar spine and left hip were obtained. COMPARISON: Comparison is made with prior study of August 03, 2020. FINDINGS: Lumbar Spine (L1-L4): g/cm2 (1.122) / T-score (0.8) / Z-score (3.2) Findings are suggestive of normal bone density with a low fracture risk. Left Femur Total: g/cm2 (0.795) / T-score (-1.2) / Z-score (0.6) Left Femoral Neck: g/cm2 (0.656) / T-score (-1.7) / Z-score (0.4) The T-Scores on the most recent prior examination were: Lumbar Spine (L1-L4): There has been worsening of bone density since the previous examination. Left Femur Total: which represents a worsening of 6.4%. BD/Dexa Bone Density Study IMPRESSION: The patient is considered osteopenic as outlined below according to World Richard Organization (WHO) criteria with a moderate fracture risk. There has been worsening of bone density since the previous examination. Reference Information: The T-score is the number of standard deviations above or below the standard which is normal for young adults at their peak bone mineral density. The World Health Organization (WHO) interprets the T-scores as follows: Above -1 Normal bone density Between -1 and -2.5 Osteopenia Equal to / or below -2.5 Osteoporosis As a practical clinical guideline, osteopenia may be graded as follows: Mild -1 through -1.5 Moderate -1.6 through -2.0 Severe -2.1 through -2.4 The Z-score is the number of standard deviations above or below age-matched controls. A Z-score of less than -1.5 would be considered abnormal. References: 1. NIH Osteoporosis and Related Bone Diseases www osteo.org 2. International Society for Clinical Densitometry www iscd.org 3. National Osteoporosis Foundation www nof.org Electronically Signed: Yaya Bartlett MD at 10:03 EDT ,
== END | disposition home or self-care (01) ==
PROVIDERS: PCP Internal Medicine; Referring Provider Internal Medicine; Visit Provider Internal Medicine
DX: Z12.31 Encounter for screening mammogram for malignant neoplasm of breast (principal); Z78.0 Asymptomatic menopausal state
CPT/HCPCS: 77063; 77067; 77080

== ENCOUNTER 2023-04-26 08:30 | Outpatient (RCR) | payer MEDICARE, OTHER, SELFPAY ==
--- NOTE | 2023-04-16 08:58 | HP.PTEVAL_ITS ---
Patient's Visit Information Visit Information Visit Information: LIBORIO FAJARDO is a 77 year old F referred to Physical Therapy by Dr. Chapito Moody MD with a diagnosis of Unilateral OA R knee. Date of Evaluation: 04/16/23 Physical Therapist: TODD Schreiber Visit Plan Frequency: 1-2x /Week Duration: 6 Weeks Plan: 2X/ week for 6 weeks for B hip and knee strength, eccentric control, gait training, stairs, functional activities, with HEP Pt is likly using her L LE more than her R Subjective Subjective: She has not had a R TKR but she has had a L TKR, R THR and R TSA in the past. She is having trouble going up and down stairs and the R knee wants to give out. She has had her R knee drained in the past due to swelling. Last Spring walking 1-2 miles she would need a sleeve to walk. She has trouble walking on more uneven surfaces. She is now uncomfortable using her R leg to lower her L leg. Dr wants her to have a R TKR 07-02-23. On X-ray she is bone on bone. Pain is worse with using her knee. There is no fluid to be drained right now. The pain will wake her up at night occ. Pain R knee pain: Pain Intensity (Out of 10): 1 Objective Objective: Gait: Walks with normal gait pattern and decrease stance time on the L LE LE MMT: R hip flex 19 and L hip flex 16 R knee ext 17 and L 18 R knee flex 15 and L 12 R hip abd 9 and L 11 R hip ext 10 and L 8 R knee AROM: -1 degree to 130 degrees L knee AROM: -1 degree to 125 degrees Stairs: Pt is able to go up and down the stairs recip but has decreased eccentric control (gypsy on the L causing slamming down on the R foot) and hard to push through the leg to ascend the step. Balance/Special Test Scores Lower Extremity Functional Score: 31 Goals Goal 1:: I HEP Goal Time Frame: 6-8 Weeks Goal 2:: Be able to go up and down the stairs recip with B good eccentric control Goal Time Frame: 6-8 Weeks Goal 3:: Decrease R overall knee pain by 50% Goal Time Frame: 6-8 Weeks Goal 4:: Increase B LE strength (at the time of the eval: LE MMT: R hip flex 19 and L hip flex 16 R knee ext 17 and L 18 R knee flex 15 and L 12 R hip abd 9 and L 11 R hip ext 10 and L 8). Goal Time Frame: 6-8 Weeks Rehabilitation Potential Rehabilitation Potential: Good Anticipated Interventions Patient/Client Instruction: Educate patient on: Condition and Plan of Care For the Purpose of:: To decrease pain, To increase ROM, To improve nutrient delivery to tissue, To improve muscle performance and motor function, To improve ability to perform ADL's, To increase tolerance to activity/condition/position, To improve performance and independence with ADL's, To decrease level of s upervision to perform tasks, To improve ability of physical actions for home/community/work/leisure, To improve gait and locomotor functions, To improve health of tissue, To decrease soft tissue restriction and To increase flexibility/ROM Therapeutic Exercise to Include: Strength training, Postural training, Flexibilty training, Gait and locomotor training, Neuromotor development, Passive ROM, Active ROM and Scapular Strength/Stabilization For the Purpose of:: To decrease pain, To increase ROM, To improve nutrient delivery to tissue, To increase oxygenation perfusion, To improve muscle performance and motor function, To improve ability to perform ADL's, To increase tolerance to activity/condition/position, To decrease level of supervision to perform tasks, To improve ability of physical actions for home/community/work/leisure, To improve gait and locomotor functions, To improve health of tissue, To decrease soft tissue restriction, To increase flexibility/ROM and To improve safety with gait Functional Training to Include: Gait training For the Purpose of:: To improve gait and locomotor functions Text: Thank you for the opportunity to evaluate your patient. For Medicare and Medicare HMO plans, please review the plan of care and approve it. It will need to be FAXED BACK to us at [phone] for Medicare purposes. For Medicare only, by signing this I certify the plan of care. Please let me know if there are questions or concerns regarding this plan of care. Physician Signature: Date:
== END 2023-04-26 19:00 | disposition home or self-care (01) ==
LOC: PT 08:30
PROVIDERS: PCP Internal Medicine; Referring Provider Orthopaedic Surgery; Visit Provider Orthopaedic Surgery
DX: M17.11 Unilateral primary osteoarthritis, right knee (principal)
CPT/HCPCS: 97110; 97161

== ENCOUNTER → 2023-05-08 | Outpatient (CLI) | payer MEDICARE, OTHER, SELFPAY ==
[2023-05-08 12:07] LABS: Absolute Lymphocyte Count 1.92 X10^3/uL (0.83-4.51); Absolute Neutrophil Count 2.3 X10^3/uL (2.0-7.7); Basophil# 0.04 X10^3/uL; Basophil% 0.8 % (0-1); Eosinophil# 0.06 X10^3/uL; Eosinophils% 1.3 % (0-5); Hematocrit 42.7 % (37-47); Hemoglobin 14.3 g/dL (12.0-15.0); Lymphocyte # 1.92 X10^3/ul (0.83-4.51); Lymphocyte % 40.3 % (19-41); Mean Corp Hgb Conc 33.5 g/dL (32-36); Mean Corpuscular Hgb 30.6 pg (27.0-32.0); Mean Corpuscular Volume 91.4 fL (81-99); Mean Platelet Vol. 10.3 fl (6.2-12.0); Monocyte# 0.44 X10^3/uL; Monocyte% 9.2 % (0-10); NRBC Flagged by Analyzer 0 % (0-5); Neutrophil # 2.29 X10^3/uL (2.7-7.7); Neutrophil % 48.2 % (47-70); Platelet Count 267 K/mm3 (150-450); RBC Distribution Width CV 12.6 % (11.6-14.6); RBC Distribution Width SD 41.9 fl (35.1-43.9); Red Blood Count 4.67 M/mm3 (4.2-5.4); White Blood Count 4.8 K/mm3 (4.4-11.0)
[2023-05-08 12:29] LABS: ALB/GLOB Ratio 1.1 RATIO (0.9-2.4); AST(SGOT) 19 U/L (15-37); Alanine Aminotransfer ALT/SGPT 23 U/L (13-56); Albumin, Serum 3.5 g/dL (3.2-5.0); Alkaline Phosphatase 64 U/L (45-117); Anion Gap 5 (5-15); BUN 14 mg/dL (7-18); BUN/Creat Ratio 16.6 RATIO (10-20); Calcium,Total 9.5 mg/dL (8.5-10.1); Chloride 103 mmol/L (98-107); Creatinine, Serum 0.84 mg/dL (0.55-1.02); EST Glomerular Filtration Rate 70 mL/min (>60); Est Glom Filt Rate - Afr Amer 84 mL/min (>60); Globulin 3.2 g/dL (2.2-4.2); Glucose 85 mg/dL (74-106); Potassium 4.1 mmol/L (3.5-5.1); Protein, Total 6.7 g/dL (6.4-8.2); Sodium Level 136 mmol/L (136-145)
== END | disposition home or self-care (01) ==
LOC: MTLAB 10:35
PROVIDERS: PCP Internal Medicine; Referring Provider Internal Medicine Rheumatology; Visit Provider Internal Medicine Rheumatology
DX: M06.00 Rheumatoid arthritis without rheumatoid factor, unspecified site (principal); Z79.899 Other long term (current) drug therapy
CPT/HCPCS: 36415; 80053; 85025

== ENCOUNTER → 2023-07-18 | Outpatient (CLI) | payer MEDICARE, OTHER, SELFPAY ==
--- NOTE | 2023-07-18 17:22 | RAD_ITS ---
STUDY: X-RAY - LUMBAR SPINE REASON FOR EXAM: Female, 77 years old. PAIN TECHNIQUE: 2 view(s) of the lumbar spine were obtained. COMPARISON: 03/18/2013 FINDINGS: There is a slightly exaggerated lumbar lordosis. There is scoliosis of the lumbar spine with convexity to the right. Minimal anterolisthesis of L4 on L5 (3 mm). There is multilevel endplate spondylosis of the lumbar vertebrae. There is multi-level advanced degenerative disc disease with multi-level disc space narrowing. There is multilevel vacuum phenomenon. No acute fracture. Extensive bilateral facet hypertrophy seen. The soft tissue structures are unremarkable. RAD/Lumbar Spine 2 or 3 Views IMPRESSION: Advanced degenerative disease as described with mild scoliosis, convexity to the right. Minimal anterolisthesis of L4 on L5, likely degenerative related. No acute fracture. Electronically Signed: Henna Abarca MD at 21:37 EST ,
== END | disposition home or self-care (01) ==
LOC: RAD 17:17
PROVIDERS: PCP Internal Medicine; Referring Provider Anesthesiology Pain Medicine; Visit Provider Anesthesiology Pain Medicine
DX: M51.36 Other intervertebral disc degeneration, lumbar region (principal)
CPT/HCPCS: 72100

== ENCOUNTER 2023-08-01 08:23 | Outpatient (CLI) | payer MEDICARE, OTHER, SELFPAY ==
[2023-08-01 10:35] LABS: Absolute Lymphocyte Count 2.83 X10^3/uL (0.83-4.51); Absolute Neutrophil Count 4.2 X10^3/uL (2.0-7.7); Basophil# 0.06 X10^3/uL; Basophil% 0.8 % (0-1); Eosinophil# 0.08 X10^3/uL; Hematocrit 43.2 % (37-47); Hemoglobin 14.6 g/dL (12.0-15.0); Lymphocyte # 2.83 X10^3/ul (0.83-4.51); Lymphocyte % 35.7 % (19-41); Mean Corp Hgb Conc 33.8 g/dL (32-36); Mean Corpuscular Hgb 30.7 pg (27.0-32.0); Mean Corpuscular Volume 90.8 fL (81-99); Mean Platelet Vol. 11.3 fl (6.2-12.0); Monocyte# 0.77 X10^3/uL; Monocyte% 9.7 % (0-10); NRBC Flagged by Analyzer 0 % (0-5); Neutrophil # 4.16 X10^3/uL (2.7-7.7); Neutrophil % 52.5 % (47-70); Platelet Count 275 K/mm3 (150-450); RBC Distribution Width CV 13.1 % (11.6-14.6); RBC Distribution Width SD 42.7 fl (35.1-43.9); Red Blood Count 4.76 M/mm3 (4.2-5.4); White Blood Count 7.9 K/mm3 (4.4-11.0)
[2023-08-01 10:46] LABS: Partial Thromboplast Time 26.6 Seconds (24.1-36.2)
[2023-08-01 11:15] LABS: ALB/GLOB Ratio 1.1 RATIO (0.9-2.4); AST(SGOT) 18 U/L (15-37); Alanine Aminotransfer ALT/SGPT 22 U/L (13-56); Albumin, Serum 3.7 g/dL (3.2-5.0); Alkaline Phosphatase 66 U/L (45-117); Anion Gap 7 (5-15); BUN 17 mg/dL (7-18); BUN/Creat Ratio 20.2 RATIO (10-20); Bilirubin, Direct 0.22 mg/dL (0.00-0.30); Calcium,Total 9.7 mg/dL (8.5-10.1); Chloride 105 mmol/L (98-107); Creatinine, Serum 0.84 mg/dL (0.55-1.02); EST Glomerular Filtration Rate 70 mL/min (>60); Est Glom Filt Rate - Afr Amer 85 mL/min (>60); Globulin 3.4 g/dL (2.2-4.2); Glucose 86 mg/dL (74-106); Protein, Total 7.1 g/dL (6.4-8.2); Sodium Level 136 mmol/L (136-145)
[2023-08-01 11:20] LABS: Prothrombin Time (Protime)PT. 13.5 SECONDS (11.7-14.9)
== END 2023-08-01 23:59 | disposition home or self-care (01) ==
LOC: MTLAB 08:24
PROVIDERS: PCP Internal Medicine; Referring Provider Internal Medicine Rheumatology; Visit Provider Internal Medicine Rheumatology
DX: R58 Hemorrhage, not elsewhere classified (principal); M06.00 Rheumatoid arthritis without rheumatoid factor, unspecified site; Z79.899 Other long term (current) drug therapy; M16.11 Unilateral primary osteoarthritis, right hip; M18.12 Unilateral primary osteoarthritis of first carpometacarpal joint, left hand
CPT/HCPCS: 36415; 80053; 82248; 85025; 85610; 85730

== ENCOUNTER 2023-08-16 10:25 | Emergency (ER) | payer MEDICARE, OTHER, SELFPAY ==
[2023-08-16] VITALS (10 sets, daily range): BP systolic 140–159; BP diastolic 77–85; PULSE 69–80; RESP 12–22; TEMP 36.4–36.8; O2SAT 97–100; BMI 23.3
--- NOTE | 2023-08-16 10:34 | CT_ITS ---
STUDY: CTA HEAD AND NECK WITH CONTRAST REASON FOR EXAM: Female, 77 years old. Neuro deficit, acute, stroke suspected RADIATION DOSAGE (If Supplied By Facility): CTDIvol = ( 19.17 ) mGy, DLP = ( 473.51 ) mGycm TECHNIQUE: CT angiography was performed with a multi-detector CT scanner. Data acquisition was obtained from the skull base through the vertex following intravenous administration of IV 100mL Isovue-370. MIP images were reconstructed from the axial data set. Post-processing of the angiographic images was performed, with multiplanar reformation and 3D reconstruction. Individualized dose optimization techniques were used for this CT. COMPARISON: No relevant priors. FINDINGS: Normal bilateral petrous carotid arteries. Normal right cavernous carotid artery with a normal supraclinoid bifurcation. Normal left cavernous carotid artery with a normal supraclinoid bifurcation. Normal right A1 segments of the anterior cerebral artery. Normal left A1 segments of the anterior cerebral artery. Normal intact anterior communicating artery (ACOM). Normal bilateral A2 segments of the anterior cerebral arteries. Normal right M1 and M2 segments of the middle cerebral arteries, with a normal M1 bifurcation. Normal left M1 and M2 segments of the middle cerebral arteries, with a normal M1 bifurcation. Normal right posterior communicating artery (PCOM). Normal left posterior communicating artery (PCOM). Normal bilateral vertebral arteries. Normal basilar artery with a normal basilar bifurcation. The visualized bilateral superior cerebellar (SCA) arteries are normal. Normal bilateral P1, P2 and visualized P3 segments of the posterior cerebral arteries. There is no demonstrated aneurysm of the [place]. AORTIC ARCH: There is atherosclerotic calcific plaque formation of the aortic arch and great vessels arising from the aortic arch, without a hemodynamically significant stenosis. There is a normal origin of the brachiocephalic, left common carotid, and left subclavian arteries. RIGHT CAROTID ARTERIES: Normal right common carotid artery (CCA). Normal right common carotid bulb. Normal origin of the right internal carotid (ICA) artery without a hemodynamically significant stenosis. Normal visualized cervical portion of the right internal carotid artery. Normal origin of the right external carotid artery (ECA). LEFT CAROTID ARTERIES: Normal left common carotid artery (CCA). Normal left common carotid bulb. Minimal plaque is seen at the origin of the left internal carotid artery. Normal visualized cervical portion of the left internal carotid artery. Normal origin of the left external carotid artery (ECA). VERTEBRAL ARTERIES: Normal bilateral vertebral arteries. CT/STROKE CTA Head AND Neck W/Con IMPRESSION: Normal CTA Head and neck with contrast. N.B. : The above Results were Read Back by Yaya Bartlett MD to Dr Dylan DO, and understanding confirmed on 08/16/2023 12:38:24 (ET). Electronically Signed: Yaya Bartlett MD at 12:39 EDT ,
--- NOTE | 2023-08-16 10:34 | EKG12_ITS ---
Test Reason : NEURO Blood Pressure : / mmHG Vent. Rate : 071 BPM Atrial Rate : 071 BPM P-R Int : 154 ms QRS Dur : 088 ms QT Int : 398 ms P-R-T Axes : 065 019 084 degrees QTc Int : 432 ms Normal sinus rhythm Nonspecific T wave abnormality Abnormal ECG Confirmed by Jacob De La Torre ([id number]), video tape editor BRENNEN GARDINER ([id number]) on 08/17/2023 8:26:47 AM Referred By: Confirmed By:Jacob De La Torre
--- NOTE | 2023-08-16 10:35 | EDS_ITS ---
HPI History of Present Illness Chief Complaint: Stroke Alert Onset/Context/Timing Onset: Today Context: Sudden Onset Timing: Intermittent Onset: 9:15 AM today Worsened by: Nothing Relieved by: Nothing Associated Symptoms Associated Symptoms: Negative for Headache, Nausea, Vomiting or Chest Pain Narrative Narrative: Patient presents with some slurred speech that was noticed this morning at 915. 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 After the class was over, patient called her daughter on the phone. Daughter thought that the patient was having some slurred speech and expressive aphasia. states that the patient was having some difficulty getting some of her words out. Currently, states patient is talking normally. states the patient had jaw surgery and has been having a mild lisp since that surgery. Patient denies any headaches. Patient denies any facial or extremity weakness. Patient denies any paresthesias. 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, jaw Rheumatoid arthritis Sublingual abscess Home Medications abatacept 125 mg/mL subcutaneous syringe (Orencia) 125 mg subcut WE RHEUMATOID ARTHRITIS 08/18/16 [History Last Taken 11/30/21] methotrexate sodium 2.5 mg tablet 20 mg PO WE RHEUMATOID ARTHRITSIS 08/18/16 [History Last Taken 11/30/21] tramadol 50 mg tablet 1 - 2 tab PO Q6H PRN PAIN 08/18/16 [History Last Taken Unknown] ezetimibe 10 mg tablet 10 mg PO DAILY CHOLESTEROL 05/25/21 [History Last Taken 12/05/21] prednisone 5 mg tablet 10 mg PO DAILY PRN FLARE UPS 05/25/21 [History Last Taken Unknown] ascorbic acid (vitamin C) 500 mg tablet (Vitamin C) 500 mg PO DAILY SUPPLEMENT 12/05/21 [History Last Taken 12/05/21] ranolazine 500 mg tablet,extended release,12 hr 1,000 mg (2 x 500 mg) PO BID CHEST PAIN #120 tabs 10/04/22 [Rx Last Taken Unknown] losartan 50 mg tablet 50 mg PO DAILY BLOOD PRESSURE #90 tabs 12/08/22 [Rx Last Taken Unknown] calcium carbonate 600 mg-vitamin D3 5 mcg (200 unit) tablet (Calcium 600 + D(3)) 2 tab PO BID SUPPLEMENT 04/17/23 [History Last Taken Unknown] cholecalciferol (vitamin D3) 125 mcg (5,000 unit) tablet 125 mcg PO DAILY SUPPLEMENT 04/17/23 [History Last Taken Unknown] folic acid 1 mg tablet 1 mg PO SUMOTUTHFRSA SUPPLEMENT 04/17/23 [History Last Taken Unknown] folic acid 1 mg tablet 2 mg PO WE SUPPLEMENT 08/16/23 [History Last Taken Unknown] hydrochlorothiazide 25 mg tablet 25 mg PO DAILY BLOOD PRESSURE 08/16/23 [History Last Taken Unknown] Allergy/AdvReac Type Severity Reaction Status Date / Time cat dander Allergy Unknown Verified 08/16/23 10:31 hydroxychloroquine AdvReac photosensit Verified 08/16/23 10:31 [From Plaquenil] ivity niacin AdvReac Rash Verified 08/16/23 10:31 Family History (Reviewed 04/17/23 @ 09:59 by Paul Winn MIXER OPERATOR VACUUM PAN SALT, MIXER OPERATOR VACUUM PAN SALT-C) Mother Hypertension Sister Lupus Surgical History History of section History of hernia repair History of left heart catheterization (12/06/21) History of left knee replacement History of mandibular surgery History of right shoulder replacement History of surgery on left wrist History of total right hip replacement history of wrist surgery Social History Smoking Status: Never smoker alcohol intake: never substance use type: does not use caffeine: Yes Type: coffee Number of servings: 1 ROS ROS ED Constitutional Constitutional ED: Denies chills or fever(s) Eyes Eyes: Denies blurry vision or change in vision ENT ENT ED: Denies rhinorrhea or sore throat Cardiovascular Cardiovascular: Denies chest pain or palpitations Respiratory/Chest Respiratory/Chest: Denies cough or dyspnea Gastrointestinal Gastrointestinal: Denies nausea or vomiting Genitourinary Genitourinary ED: Denies dysuria or hematuria Musculoskeletal Musculoskeletal: Denies back pain or neck pain Integumentary Denies abscess or rash Neurologic Neurologic: Denies headache(s) or weakness Allergic/Immunologic Allergic/Immunologic ED: Denies mouth swelling or urticaria EXAM Physical Exam Const Vital Signs: 08/16/23 10:25 08/16/23 10:38 08/16/23 10:47 Temperature 97.6 F L 97.6 F L Temperature Source Temporal Temporal Pulse Rate 80 80 Respiratory Rate 16 16 Blood Pressure 153/79 H 153/79 H Blood Pressure Mean 103 103 Pulse Ox 100 100 Oxygen Delivery Method Room Air Room Air Room Air 08/16/23 10:34 08/16/23 11:04 08/16/23 11:30 Temperature 98.2 F Temperature Source Oral Pulse Rate 74 73 70 Respiratory Rate 16 22 H 12 Blood Pressure 156/84 H 150/80 H 159/79 H Blood Pressure Mean 108 103 105 Pulse Ox 98 98 99 Oxygen Delivery Method Room Air Room Air Room Air 08/16/23 12:00 08/16/23 12:30 08/16/23 13:00 Temperature 97.6 F L Temperature Source Temporal Pulse Rate 73 72 69 Respiratory Rate 16 16 14 Blood Pressure 150/80 H 140/82 H 145/85 H Blood Pressure Mean 103 101 105 Pulse Ox 100 100 98 Oxygen Delivery Method Room Air Room Air Room Air 08/16/23 13:30 Temperature 98.2 F Temperature Source Oral Pulse Rate 77 Respiratory Rate 17 Blood Pressure 150/79 H Blood Pressure Mean 102 Pulse Ox 98 Oxygen Delivery Method Room Air Positive well nourished and well developed General Appearance ED: well developed and NAD HEENT Reports moist mucous membranes Neck supple and no JVD Resp normal respiratory effort and clear to auscultation bilaterally Cardio Rate: regular rate Rhythm: regular rhythm GI soft to palpation, non-tender and non-distended Extremity normal to inspection Neuro oriented x3, CN's II-XII intact bilaterally and no sensory deficits noted [place] Coma Scale: document GCS findings Spontaneous Obeys Commands Oriented 15 Sensorium / Orientation: alert Speech: speech normal Motor Exam: strength 5/5 throughout Psych mental status grossly normal NIHSS NIHSS Initial: 1a Level of Consciousness: 0 1b LOC Questions (Score 2 if aphasic/stupor): 0 1c LOC Commands (Only score 1st attempt): 0 2 Best Gaze (If aphasic, use reflexive mvmts.): 0 3 Visual: 0 4 Facial Palsy: 0 5 Motor Arm Right (UN = amputation/fusion): 0 5 Motor Arm Left: 0 6 Motor Leg Right: 0 6 Motor Leg Left: 0 7 Limb ataxia (Only + if out of proportion): 0 8 Sensory (Aphasia/stupor=0 or 1, coma=2): 0 9 Best Language: 0 10 Dysarthria (mute, coma=2, intubated=UN): 0 11 Extinction and Inattention (only scored if +): 0 Total Score: 0 MDM MDM MDM Narrative Medical decision making narrative: Stroke alert was called in triage. Patient was evaluated there. Differential diagnosis includes stroke, TIA, cardiac dysrhythmia, cardiac ischemia, electrolyte abnormality, and peripheral vascular disease. CT scan of the brain will be obtained to assess for stroke and intracranial bleeding. CTA of the head and neck will be obtained to assess for large vessel occlusion and carotid stenosis. CBC will be obtained to assess for leukocytosis and anemia. Basic m etabolic profile will be obtained to assess for electrolyte abnormality and renal function. PT with INR and PTT will be obtained to assess for coagulopathy. High-sensitivity troponin will be obtained to assess for cardiac ischemia. Chest x-ray will be obtained to assess for widened mediastinum and pneumonia. EKG will be obtained to assess for cardiac dysrhythmia and cardiac ischemia. Lab Data Attestation: I reviewed the patient's lab results. Lab results narrative: CBC was reviewed and was essentially within normal limits. Basic metabolic profile was reviewed and was within normal limits. High-sensitivity troponin was reviewed and was normal at 33. PT with INR and PTT were reviewed and were within normal limits. Labs: Laboratory Results - last 24 hr 08/16/23 08/16/23 10:47 12:41 WBC 6.3 RBC 4.90 Hgb 15.1 H Hct 45.3 MCV 92.4 MCH 30.8 MCHC 33.3 RDW Std Deviation 45.5 H RDW Coeff of Dejah 13.5 Plt Count 206 MPV 10.5 Immature Gran % (Auto) 0.300 Neut % (Auto) 56.9 Lymph % (Auto) 33.8 [place] % (Auto) 7.0 Eos % (Auto) 1.0 Baso % (Auto) 1.0 Absolute Neuts (auto) 3.6 Absolute Lymphs (auto) 2.12 Nucleated RBC % 0 PT 12.9 INR 1.0 APTT 24.9 Sodium 136 Potassium 3.9 Chloride 102 Carbon Dioxide 28.0 Anion Gap 6 BUN 18 Creatinine 0.88 Estim Creat Clear Calc 41.68 Est GFR (MDRD) Af Amer 81 Est GFR (MDRD) Non-Af 67 BUN/Creatinine Ratio 20.5 H Glucose 79 Calcium 9.5 Troponin I High Sens 33 Radiography Diagnostic Testing: Clinical Impression(s) from Imaging Studies Head/Neck CTA 08/16/23 10:34 IMPRESSION: Normal CTA Head and neck with contrast. N.B. : The above Results were Read Back by Yaya Bartlett MD to Dr Dylan DO, and understanding confirmed on 08/16/2023 12:38:24 (ET). Electronically Signed: Yaya Bartlett MD at 12:39 EDT , ADDENDUM: 08/16/23 1246 IMPRESSION: Normal CTA Head and neck with contrast. N.B. : The above Results were Read Back by Yaya Bartlett MD to Dr Dylan DO, and understanding confirmed on 08/16/2023 12:38:24 (ET). Electronically Signed: Yaya Bartlett MD at 12:39 EDT , Brain CT 08/16/23 10:36 IMPRESSION: Chronic involutional changes of the brain. N.B. : The above Results were Read Back by Yaya Bartlett MD to Dr Dylan DO, and understanding confirmed on 08/16/2023 10:48:22 (ET). Electronically Signed: Yaya Bartlett MD at 10:49 EDT , ADDENDUM: 08/16/23 1056 IMPRESSION: Chronic involutional changes of the brain. N.B. : The above Results were Read Back by Yaya Bartlett MD to Dr Dylan DO, and understanding confirmed on 08/16/2023 10:48:22 (ET). Electronically Signed: Yaya Bartlett MD at 10:49 EDT , Chest X-Ray 08/16/23 12:55 IMPRESSION: No acute abnormality is seen. Hiatal hernia. Electronically Signed: Yaya Bartlett MD at 13:10 EDT , CT scan of the brain was obtained. There is no acute intracranial abnormality. This was interpreted by the radiologist and was also independently reviewed by myself. CTA of the head and neck was obtained. There is no large vessel occlusion. There is no acute abnormality noted. This was interpreted by the radiologist was also independently reviewed by myself. Portable 1 view chest x-ray was obtained. On my independent interpretation, lung pearl are clear. There is normal cardiac silhouette. Bony thorax is normal. There is no acute process noted. Radiologist also interpreted the x- ray and agrees. EKG Initial EKG: Attestation: I personally reviewed and interpreted this EKG as follows: Interpretation: Sinus Rhythm (71) and Non-Specific ST Changes Comments: EKG was obtained. On my independent interpretation, it showed a normal sinus rhythm with a rate of 71. [place] interval, QRS interval, and QTc intervals were all normal. [place] was normal. There are nonspecific ST-T wave changes. Prior EKG tracings: available for review Prior: Unchanged (12/05/2021) Management Discussion w/another healthcare provider: [employer] (Dr. Andujar, stroke neurologist at [facility]) Treatment and Re-Evaluation Narrative: Patient was advised of her findings. Patient and states that her speech is back to his normal for her. Patient was advised that this could be a TIA. I recommended admission to the hospital to the patient and spouse. Patient states that she is with her almost all the time. She states that he is a physician and will be able to continue to monitor her. She states that if something were to return she would return to the emergency department. Patient will sign out AGAINST MEDICAL ADVICE. Patient was instructed to follow-up with her primary care physician in 3 to 5 days. Patient and spouse understood and were agreeable with the plan. All questions were answered. Discharge Plan Triage Chief Complaint: Stroke Alert ED Provider: Richard Richardson Dx/Rx/DC Orders Clinical Impression: Expressive aphasia, TIA (transient ischemic attack), Essential hypertension Instructions: ED TIA: Transient Ischemic Attack Prescriptions: No Action cholecalciferol (vitamin D3) 125 mcg (5,000 unit) tablet 125 mcg PO DAILY tramadol 50 MG tablet 1 - 2 tab PO Q6H PRN (Reason: PAIN ) methotrexate sodium 2.5 MG tablet 20 mg PO WE Orencia 125 MG/ML syringe 125 mg subcut WE Rx Instructions: not taking this week due to diagnosis folic acid 1 mg tablet 1 mg PO SUMOTUTHFRSA calcium carbonate-vitamin D3 [Calcium 600 + D(3)] 600 mg-5 mcg (200 unit) tablet 2 tab PO BID prednisone 5 mg Tablet 10 mg PO DAILY PRN (Reason: FLARE UPS ) Protocol: Titrate ezetimibe 10 mg tablet 10 mg PO DAILY ascorbic acid (vitamin C) [Vitamin C] 500 mg Tablet 500 mg PO DAILY folic acid 1 mg tablet 2 mg PO WE hydrochlorothiazide 25 mg tablet 25 mg PO DAILY ranolazine 500 mg tablet extended release 12 hr 1,000 mg PO BID Qty: 120 12RF losartan 50 mg tablet 50 mg PO DAILY Qty: 90 3RF Primary Care Provider: Jena Valentin Referrals: Jena Valentin MD [Primary Care Provider] - 3-5 Days Disposition Disposition: Against Medical Advice
--- NOTE | 2023-08-16 10:36 | CT_ITS ---
STUDY: CT HEAD STROKE PROTOCOL W/O CONTRAST INJECTION REASON FOR EXAM: Female, 77 years old. Neuro deficit, acute, stroke suspected RADIATION DOSAGE (If Supplied By Facility): CTDIvol = ( 44.99 ) mGy, DLP = ( 846.73 ) mGycm TECHNIQUE: Transaxial CT imaging of the brain was performed without administration of intravenous contrast material. Individualized dose optimization techniques were used for this CT. COMPARISON: Comparison is made with prior study March 25, 2022. FINDINGS: Normal soft tissue structures. Normal calvarium. There is mild cerebral atrophy with widening of the extra-axial spaces and ventricular dilatation. Normal white matter tracts of the cerebral hemispheres. Normal basal ganglia and thalami. Normal brainstem. There is mild cerebellar atrophy. There is no intracranial hemorrhage. There are no findings of an acute ischemic infarction. Atherosclerotic calcification of the carotid portions of the internal carotid arteries bilaterally. Normal visualized paranasal sinuses. ASPECT score: 10 CT/STROKE Brain/Head without Cont IMPRESSION: Chronic involutional changes of the brain. N.B. : The above Results were Read Back by Yaya Bartlett MD to Dr Dylan DO, and understanding confirmed on 08/16/2023 10:48:22 (ET). Electronically Signed: Yaya Bartlett MD at 10:49 EDT ,
--- NOTE | 2023-08-16 10:42 | ED.RN ---
[facility] having difficulty getting their connection to teleneurology with robot. Dr. Andujar is on phone with Dr. Richardson. pt is in CT at this time.
--- NOTE | 2023-08-16 10:50 | ED.RN ---
delay in patient getting back to ED room- has been in CT getting IV access for scans
[2023-08-16 10:59] LABS: Absolute Lymphocyte Count 2.12 X10^3/uL (0.83-4.51); Absolute Neutrophil Count 3.6 X10^3/uL (2.0-7.7); Basophil# 0.06 X10^3/uL; Eosinophil# 0.06 X10^3/uL; Hematocrit 45.3 % (37-47); Hemoglobin 15.1 g/dL (12.0-15.0); Lymphocyte # 2.12 X10^3/ul (0.83-4.51); Lymphocyte % 33.8 % (19-41); Mean Corp Hgb Conc 33.3 g/dL (32-36); Mean Corpuscular Hgb 30.8 pg (27.0-32.0); Mean Corpuscular Volume 92.4 fL (81-99); Mean Platelet Vol. 10.5 fl (6.2-12.0); Monocyte# 0.44 X10^3/uL; NRBC Flagged by Analyzer 0 % (0-5); Neutrophil # 3.58 X10^3/uL (2.7-7.7); Neutrophil % 56.9 % (47-70); Platelet Count 206 K/mm3 (150-450); RBC Distribution Width CV 13.5 % (11.6-14.6); RBC Distribution Width SD 45.5 fl (35.1-43.9); White Blood Count 6.3 K/mm3 (4.4-11.0)
[2023-08-16 11:18] LABS: Anion Gap 6 (5-15); BUN 18 mg/dL (7-18); BUN/Creat Ratio 20.5 RATIO (10-20); Calcium,Total 9.5 mg/dL (8.5-10.1); Chloride 102 mmol/L (98-107); Creatinine, Serum 0.88 mg/dL (0.55-1.02); EST Glomerular Filtration Rate 67 mL/min (>60); Est Glom Filt Rate - Afr Amer 81 mL/min (>60); Estimated Creatinine Clearance 41.68 ml/min; Glucose 79 mg/dL (74-106); Potassium 3.9 mmol/L (3.5-5.1); Sodium Level 136 mmol/L (136-145); Troponin-I HS 33 pg/mL (3.0-54.0)
[2023-08-16] MEDS: 0.9% Normal Saline (1000mL) 1,000 ML 999 ML IV (12:52)
--- NOTE | 2023-08-16 12:55 | RAD_ITS ---
STUDY: X-RAY CHEST REASON FOR EXAM: Female, 77 years old. Neuro deficit, acute, stroke suspected TECHNIQUE: Single AP portable view of the chest. COMPARISON: Comparison is made with prior study dated December 05, 2021. FINDINGS: EKG electrodes are seen. The lungs are clear and expanded. There is no demonstrated pleural abnormality. Normal size heart. Normal mediastinum and cara. Normal visualized pulmonary arteries. There is atherosclerotic tortuosity of the aortic arch and descending thoracic aorta. Normal visualized thoracic spine. Evidence of right reverse shoulder replacement. Hiatal hernia. RAD/Chest 1 View IMPRESSION: No acute abnormality is seen. Hiatal hernia. Electronically Signed: Yaya Bartlett MD at 13:10 EDT ,
[2023-08-16 13:11] LABS: Partial Thromboplast Time 24.9 Seconds (24.1-36.2); Prothrombin Time (Protime)PT. 12.9 SECONDS (11.7-14.9)
--- NOTE | 2023-08-16 14:00 | ED.RN ---
see IV extravasation for right arm. has had it elevated with ice. had previous bruising but swelling increased since event.
[2023-08-16 18:20] LABS: Bedside Glucose 106 mg/dL (74-106)
== END 2023-08-16 14:02 | disposition left against medical advice (07) ==
PROVIDERS: Emergency Provider Emergency Medicine; PCP Internal Medicine; Visit Provider Emergency Medicine
DX: G45.9 Transient cerebral ischemic attack, unspecified (principal); M06.9 Rheumatoid arthritis, unspecified; I11.0 Hypertensive heart disease with heart failure; I50.30 Unspecified diastolic (congestive) heart failure; R47.01 Aphasia; Z79.899 Other long term (current) drug therapy; Z96.652 Presence of left artificial knee joint; Z96.611 Presence of right artificial shoulder joint; Z96.641 Presence of right artificial hip joint
CPT/HCPCS: 70450; 70496; 70498; 71045; 80048; 82962; 84484; 85025; 85610; 85730; 93005; 96360; 99285; J7030; Q9967; A4216

== ENCOUNTER 2023-09-17 09:00 | Outpatient (RCR) | payer MEDICARE, OTHER, SELFPAY ==
--- NOTE | 2023-09-03 13:17 | HP.PTEVAL_ITS ---
Patient's Visit Information Visit Information Visit Information: LIBORIO GENTILE is a 77 year old F referred to Physical Therapy by Dr. 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 Nelson. She has had relatively no pain since surgery. She has the most pain is down by the elbow where the bruising is. Some incisional burning. She is wearing the sling. Right is right hand domin ate. She is able to do most of her ADL's but her is able to help. No exercise for 2 weeks after surgery. Worst: 06/06 Agg: movement Eases: rest and wearing the sling. Sleep: bed- not waking her up. Spinning instructor and very active. PMHX/Meds: see list in chart from ED 08/18 Objective Objective: Posture: good throughout- mild guarding of the right UE- sling in use Observation: incision healing well- no s/s of infection PROM: flexion: 120 degrees Abd: 130 degrees, IR: to belly, ER: 40 degrees Strength: shoulder not tested, Elbow: 4+/5, Pneudraulic Systems Mechanic: good Palpation: tender along incision Balance/Special Test Scores Quick DASH Score: 29.5450 Goals Goal 1:: Patient will report participation in home exercise program activities a minimum of 5 days per week, as adjunct to skilled physical therapy intervention in preparation for independent home management upon discharge. Goal Time Frame: 4-6 Weeks Goal 2:: Patient will demo full AROM of the right UE as protocol allows Goal Time Frame: 4-6 Weeks Goal 3:: Patient will maintain proper posture t/o session to demo increased scap s/s Goal Time Frame: 4-6 Weeks Goal 4:: Patient will report 80% improvement. Goal Time Frame: 4-6 Weeks Rehabilitation Potential Physical Therapy Diagnosis: Patient presents s/p surgical intervention- she has decreased pain free ROM, scapular strength/stabilization, muscular endurance leading to decreased ability to perform ADL's Rehabilitation Potential: Good Anticipated Interventions Patient/Client Instruction: Educate patient on: Benefits of Fitness Program Therapeutic Exercise to Include: Strength training, Endurance training, Coordination, Agility training, Body mechanics, Postural training, Flexibilty training, Neuromotor development, Passive ROM, Active ROM, Dynamic Lumbar Stabilization and Scapular Strength/Stabilization For the Purpose of:: To improve muscle performance and motor function TENS: Yes Cryotherapy (ice pack, ice massage): Yes Thermo therapy (hot pack): Yes Ultrasound (thermal/non thermal): No Text: Thank you for the opportunity to evaluate your patient. For Medicare and Medicare HMO plans, please review the plan of care and approve it. It will need to be FAXED BACK to us at [phone] for Medicare purposes. For Medicare only, by signing this I certify the plan of care. Please let me know if there are questions or concerns regarding this plan of care. Physician Signature: Date:
== END 2023-09-17 19:00 | disposition home or self-care (01) ==
LOC: PT 09:00
PROVIDERS: PCP Internal Medicine; Referring Provider Orthopaedic Surgery; Visit Provider Orthopaedic Surgery
DX: M12.811 Other specific arthropathies, not elsewhere classified, right shoulder (principal)
CPT/HCPCS: 97110; 97162

== ENCOUNTER → 2023-10-30 | Outpatient (CLI) | payer MEDICARE, OTHER, SELFPAY ==
[2023-10-30 09:50] LABS: Absolute Lymphocyte Count 2.01 X10^3/uL (0.83-4.51); Absolute Neutrophil Count 1.7 X10^3/uL (2.0-7.7); Basophil# 0.06 X10^3/uL; Basophil% 1.4 % (0-1); Eosinophil# 0.14 X10^3/uL; Eosinophils% 3.3 % (0-5); Hematocrit 43.1 % (37-47); Hemoglobin 14.4 g/dL (12.0-15.0); Lymphocyte # 2.01 X10^3/ul (0.83-4.51); Lymphocyte % 47.7 % (19-41); Mean Corp Hgb Conc 33.4 g/dL (32-36); Mean Corpuscular Hgb 30.8 pg (27.0-32.0); Mean Corpuscular Volume 92.1 fL (81-99); Mean Platelet Vol. 10.3 fl (6.2-12.0); Monocyte# 0.31 X10^3/uL; Monocyte% 7.4 % (0-10); NRBC Flagged by Analyzer 0 % (0-5); Neutrophil # 1.68 X10^3/uL (2.7-7.7); Platelet Count 309 K/mm3 (150-450); RBC Distribution Width CV 12.2 % (11.6-14.6); RBC Distribution Width SD 40.3 fl (35.1-43.9); Red Blood Count 4.68 M/mm3 (4.2-5.4); White Blood Count 4.2 K/mm3 (4.4-11.0)
[2023-10-30 10:32] LABS: ALB/GLOB Ratio 1.2 RATIO (0.9-2.4); AST(SGOT) 29 U/L (15-37); Alanine Aminotransfer ALT/SGPT 29 U/L (13-56); Albumin, Serum 3.7 g/dL (3.2-5.0); Alkaline Phosphatase 66 U/L (45-117); Anion Gap 9 (5-15); BUN 14 mg/dL (7-18); BUN/Creat Ratio 16.5 RATIO (10-20); Calcium,Total 9.4 mg/dL (8.5-10.1); Chloride 106 mmol/L (98-107); Creatinine, Serum 0.85 mg/dL (0.55-1.02); EST Glomerular Filtration Rate 70 mL/min (>60); Est Glom Filt Rate - Afr Amer 84 mL/min (>60); Globulin 3.2 g/dL (2.2-4.2); Glucose 99 mg/dL (74-106); Potassium 3.8 mmol/L (3.5-5.1); Protein, Total 6.9 g/dL (6.4-8.2); Sodium Level 139 mmol/L (136-145)
== END | disposition home or self-care (01) ==
LOC: MTLAB 08:27
PROVIDERS: PCP Internal Medicine; Referring Provider Internal Medicine Rheumatology; Visit Provider Internal Medicine Rheumatology
DX: M06.00 Rheumatoid arthritis without rheumatoid factor, unspecified site (principal); Z79.899 Other long term (current) drug therapy; M16.11 Unilateral primary osteoarthritis, right hip; M18.12 Unilateral primary osteoarthritis of first carpometacarpal joint, left hand; M81.0 Age-related osteoporosis without current pathological fracture
CPT/HCPCS: 36415; 80053; 85025

== ENCOUNTER → 2024-01-22 | Outpatient (CLI) | payer MEDICARE, OTHER, SELFPAY ==
[2024-01-22 18:01] LABS: Absolute Lymphocyte Count 1.87 X10^3/uL (0.83-4.51); Absolute Neutrophil Count 1.9 X10^3/uL (2.0-7.7); Basophil# 0.04 X10^3/uL; Basophil% 0.9 % (0-1); Eosinophils% 2.3 % (0-5); Hematocrit 41.3 % (37-47); Hemoglobin 13.6 g/dL (12.0-15.0); Lymphocyte # 1.87 X10^3/ul (0.83-4.51); Lymphocyte % 43.2 % (19-41); Mean Corp Hgb Conc 32.9 g/dL (32-36); Mean Corpuscular Hgb 30.4 pg (27.0-32.0); Mean Corpuscular Volume 92.2 fL (81-99); Mean Platelet Vol. 10.2 fl (6.2-12.0); Monocyte# 0.39 X10^3/uL; NRBC Flagged by Analyzer 0 % (0-5); Neutrophil # 1.92 X10^3/uL (2.7-7.7); Neutrophil % 44.4 % (47-70); Platelet Count 268 K/mm3 (150-450); RBC Distribution Width SD 43.2 fl (35.1-43.9); Red Blood Count 4.48 M/mm3 (4.2-5.4); White Blood Count 4.3 K/mm3 (4.4-11.0)
[2024-01-22 18:10] LABS: ALB/GLOB Ratio 1.1 RATIO (0.9-2.4); AST(SGOT) 25 U/L (15-37); Alanine Aminotransfer ALT/SGPT 30 U/L (13-56); Albumin, Serum 3.6 g/dL (3.2-5.0); Alkaline Phosphatase 66 U/L (45-117); Anion Gap 8 (5-15); BUN 19 mg/dL (7-18); BUN/Creat Ratio 21.6 RATIO (10-20); Calcium,Total 9.6 mg/dL (8.5-10.1); Chloride 101 mmol/L (98-107); Creatinine, Serum 0.88 mg/dL (0.55-1.02); EST Glomerular Filtration Rate 67 mL/min (>60); Est Glom Filt Rate - Afr Amer 81 mL/min (>60); Globulin 3.2 g/dL (2.2-4.2); Glucose 111 mg/dL (74-106); Potassium 3.7 mmol/L (3.5-5.1); Protein, Total 6.8 g/dL (6.4-8.2); Sodium Level 134 mmol/L (136-145)
== END | disposition home or self-care (01) ==
LOC: MTLAB 15:33
PROVIDERS: PCP Internal Medicine; Referring Provider Internal Medicine Rheumatology; Visit Provider Internal Medicine Rheumatology
DX: M06.00 Rheumatoid arthritis without rheumatoid factor, unspecified site (principal); Z79.899 Other long term (current) drug therapy; M16.11 Unilateral primary osteoarthritis, right hip; M18.12 Unilateral primary osteoarthritis of first carpometacarpal joint, left hand
CPT/HCPCS: 36415; 80053; 85025

== ENCOUNTER → 2024-02-18 | Outpatient (CLI) | payer MEDICARE, OTHER, SELFPAY ==
--- NOTE | 2024-02-18 10:41 | BI_ITS ---
MAMMOGRAPHY - BILATERAL SCREENING REASON FOR EXAM: Female, 78 years old. Routine annual screening examination. PERTINENT HISTORY: Non-contributory. Remote left excisional breast biopsy. TECHNIQUE: Digital bilateral breast jackelin (3D mammographic acquisition) in the CC and MLO projections. 2-D mediolateral oblique (MLO) and craniocaudad (CC) views of both breasts were obtained. CAD: Full Field Digital Mammography with Computer Added Detection was performed. COMPARISON: Comparison is made with prior study February 14, 2023 and August 04, 2021. FINDINGS: Breast Composition: The breasts are heterogeneously dense, which may obscure small masses. Questionable 1.4 cm x 1 cm nodular density in the slightly upper central portion of the left breast. Correlation with ultrasound is recommended. No other significant abnormalities are identified. BI/SCRN MAMM (CAD)W/JACKELIN BILAT IMPRESSION: Questionable 1.4 cm x 1 cm nodular density in the slightly upper central portion of the left breast. Correlation with ultrasound is recommended. ASSESSMENT CATEGORY: BIRADS Category 0: Incomplete. Need additional imaging evaluation. A letter regarding these results will be sent to the patient by the facility within 30 days. Approximately 10% of breast cancers are not detected by mammography. A normal mammogram should not delay biopsy of a clinically suspicious abnormality. [id number] Electronically Signed: Yaya Bartlett MD at 12:19 EDT ,
== END | disposition home or self-care (01) ==
LOC: OPBI 10:41
PROVIDERS: PCP Internal Medicine; Referring Provider Internal Medicine; Visit Provider Internal Medicine
DX: Z12.31 Encounter for screening mammogram for malignant neoplasm of breast (principal)
CPT/HCPCS: 77063; 77067

== ENCOUNTER → 2024-02-19 | Outpatient (CLI) | payer MEDICARE, OTHER, SELFPAY ==
--- NOTE | 2024-02-19 10:52 | US_ITS ---
STUDY: ULTRASOUND BREAST - LEFT REASON FOR EXAM: Female, 78 years old. Abnormal screening mammogram. TECHNIQUE: Axial and longitudinal images of the LEFT breast were performed with a high resolution ultrasound transducer. # OF IMAGES: 7 COMPARISON: Comparison is made with prior mammogram dated February 18, 2024. FINDINGS: LEFT Breast: The mammographic abnormality corresponds to a well-defined 1.6 cm x 1.5 cm x 0.4 cm hypoechoic nodule with distinct margins at the 12:00 position of the breast at 3 cm from the nipple. This most likely represents a fibroadenoma. Tissue diagnosis is recommended. US/Breast Limited Unilateral IMPRESSION: The mammographic abnormality corresponds to a well-defined hypoechoic nodule measuring 1.6 cm x 1.5 cm x 0.4 cm at the 12:00 position of the breast at 3 cm from the nipple. This most likely represents a fibroadenoma Biopsy recommended. ASSESSMENT CATEGORY: BIRADS Category 4: Suspicious - Biopsy Should Be Considered. A letter regarding these results will be sent to the patient by the facility within 30 days. Electronically Signed: Yaya Bartlett MD at 10:35 EDT ,
== END | disposition home or self-care (01) ==
LOC: OPUS 10:51
PROVIDERS: PCP Internal Medicine; Referring Provider Internal Medicine; Visit Provider Internal Medicine
DX: N63.21 Unspecified lump in the left breast, upper outer quadrant (principal)
CPT/HCPCS: 76642

== ENCOUNTER → 2024-03-10 | Outpatient (CLI) | payer MEDICARE, OTHER, SELFPAY ==
--- NOTE | 2024-03-10 08:05 | BRBX_PTH ---
PATIENT: LIBORIO GENTILE LOC: [facility] U#:[id number] AGE/SX: 78/F ROOM: RE03/10/[address]: Dr. Kaden Contreras MD : 1945 BED: DIS: 03/10/2024 SPEC #: [id number] RECD: 03/10/24 09:39 STATUS: BENITO REQ #: [id number] DIEGO: 03/10/24 08:[address]: Kaden Contreras DEPT: SURGICAL PATHOLOGY RECD BY: Michelle Batres ENTERED: 03/10/24 13:13 SP TYPE: BREAST BX OTHR DR: Dr. Jena Valentin MD Tissues: Left breast, NOS Procedures: Surgery Specimen Level IV HEADER OPERATION: Ultrasound guided needle core biopsy left breast PRE-OP DIAGNOSIS: Abnormal mammogram TISSUE SUBMITTED: Left breast biopsy Ischemic Time: 1 minute Fixation Time: 10 hours MICROSCOPIC DIAGNOSIS Left breast, ultrasound guided needle core biopsy: Focal mild intraductal hyperplasia without atypia. Focal dense fibrosis. Negative for malignancy. See comment. 03/11/2024 COMMENT Correlation with clinical, radiologic findings and appropriate follow up are necessary. MICROSCOPIC DESCRIPTION Slides are reviewed. GROSS DESCRIPTION Received in fixative is one container labeled with the patient's name and designated Left breast biopsy. The specimen consists of multiple elongated fragments of martinez-yellow fibroadipose tissue that in aggregate measure 1.5 x 0.4 x 0.1 cm. The specimen is totally submitted in one cassette. 03/10/2024 TC:5 CPT:74671
== END | disposition home or self-care (01) ==
LOC: LABSPEC 10:49
PROVIDERS: PCP Internal Medicine; Referring Provider Surgery; Visit Provider Surgery
DX: R92.8 Other abnormal and inconclusive findings on diagnostic imaging of breast (principal)
CPT/HCPCS: 88305

== ENCOUNTER → 2024-04-14 | Outpatient (CLI) | payer MEDICARE, OTHER, SELFPAY ==
[2024-04-14 12:53] LABS: Absolute Lymphocyte Count 1.88 X10^3/uL (0.83-4.51); Absolute Neutrophil Count 2.8 X10^3/uL (2.0-7.7); Basophil# 0.06 X10^3/uL; Basophil% 1.1 % (0-1); Eosinophil# 0.11 X10^3/uL; Eosinophils% 2.1 % (0-5); Hematocrit 42.9 % (37-47); Hemoglobin 14.3 g/dL (12.0-15.0); Lymphocyte # 1.88 X10^3/ul (0.83-4.51); Lymphocyte % 35.5 % (19-41); Mean Corp Hgb Conc 33.3 g/dL (32-36); Mean Corpuscular Volume 93.1 fL (81-99); Mean Platelet Vol. 10.5 fl (6.2-12.0); Monocyte# 0.39 X10^3/uL; Monocyte% 7.4 % (0-10); NRBC Flagged by Analyzer 0 % (0-5); Neutrophil # 2.84 X10^3/uL (2.7-7.7); Neutrophil % 53.7 % (47-70); Platelet Count 312 K/mm3 (150-450); RBC Distribution Width CV 12.7 % (11.6-14.6); RBC Distribution Width SD 42.7 fl (35.1-43.9); Red Blood Count 4.61 M/mm3 (4.2-5.4); White Blood Count 5.3 K/mm3 (4.4-11.0)
[2024-04-14 12:55] LABS: ALB/GLOB Ratio 1.3 RATIO (0.9-2.4); AST(SGOT) 17 U/L (15-37); Alanine Aminotransfer ALT/SGPT 25 U/L (13-56); Albumin, Serum 3.8 g/dL (3.2-5.0); Alkaline Phosphatase 66 U/L (45-117); Anion Gap 7 (5-15); BUN 16 mg/dL (7-18); BUN/Creat Ratio 18.1 RATIO (10-20); Calcium,Total 9.3 mg/dL (8.5-10.1); Chloride 104 mmol/L (98-107); Creatinine, Serum 0.88 mg/dL (0.55-1.02); EST Glomerular Filtration Rate 66 mL/min (>60); Est Glom Filt Rate - Afr Amer 80 mL/min (>60); Globulin 2.9 g/dL (2.2-4.2); Glucose 105 mg/dL (74-106); Potassium 3.8 mmol/L (3.5-5.1); Protein, Total 6.7 g/dL (6.4-8.2); Sodium Level 136 mmol/L (136-145)
== END | disposition home or self-care (01) ==
PROVIDERS: PCP Internal Medicine; Referring Provider Internal Medicine Rheumatology; Visit Provider Internal Medicine Rheumatology
DX: M06.00 Rheumatoid arthritis without rheumatoid factor, unspecified site (principal); Z79.899 Other long term (current) drug therapy
CPT/HCPCS: 36415; 80053; 85025

== ENCOUNTER → 2024-06-24 | Outpatient (CLI) | payer MEDICARE, OTHER, SELFPAY ==
[2024-06-24 10:37] LABS: Absolute Lymphocyte Count 2.35 X10^3/uL (0.83-4.51); Absolute Neutrophil Count 2.5 X10^3/uL (2.0-7.7); Basophil# 0.05 X10^3/uL; Basophil% 0.9 % (0-1); Eosinophil# 0.11 X10^3/uL; Hematocrit 42.7 % (37-47); Lymphocyte # 2.35 X10^3/ul (0.83-4.51); Lymphocyte % 42.6 % (19-41); Mean Corp Hgb Conc 35.1 g/dL (32-36); Mean Corpuscular Hgb 31.8 pg (27.0-32.0); Mean Corpuscular Volume 90.7 fL (81-99); Mean Platelet Vol. 10.4 fl (6.2-12.0); Monocyte# 0.45 X10^3/uL; Monocyte% 8.2 % (0-10); NRBC Flagged by Analyzer 0 % (0-5); Neutrophil # 2.54 X10^3/uL (2.7-7.7); Neutrophil % 46.1 % (47-70); Platelet Count 285 K/mm3 (150-450); RBC Distribution Width CV 12.6 % (11.6-14.6); RBC Distribution Width SD 40.9 fl (35.1-43.9); Red Blood Count 4.71 M/mm3 (4.2-5.4); White Blood Count 5.5 K/mm3 (4.4-11.0)
[2024-06-24 10:55] LABS: BNP,B-Type NATRIURETIC PEPTIDE 36.9 pg/mL (0-100)
[2024-06-24 11:30] LABS: AST(SGOT) 19 U/L (15-37); Alanine Aminotransfer ALT/SGPT 26 U/L (13-56); Albumin, Serum 3.7 g/dL (3.2-5.0); Alkaline Phosphatase 78 U/L (45-117); Anion Gap 11 (5-15); BUN 16 mg/dL (7-18); BUN/Creat Ratio 19.9 RATIO (10-20); Bilirubin, Direct 0.14 mg/dL (0.00-0.30); Calcium,Total 9.5 mg/dL (8.5-10.1); Chloride 104 mmol/L (98-107); Cholesterol 186 mg/dL (200); Creatinine, Serum 0.81 mg/dL (0.55-1.02); EST Glomerular Filtration Rate 73 mL/min (>60); Est Glom Filt Rate - Afr Amer 89 mL/min (>60); Globulin 3.1 g/dL (2.2-4.2); Glucose 89 mg/dL (74-106); High Density Lipoprotein 71 mg/dL; Potassium 3.7 mmol/L (3.5-5.1); Protein, Total 6.8 g/dL (6.4-8.2); Sodium Level 138 mmol/L (136-145); Triglycerides 250 mg/dL; Very Low Density Lipoprotein 50 mg/dL (5-40)
== END | disposition home or self-care (01) ==
LOC: LAB 09:56
PROVIDERS: PCP Internal Medicine; Referring Provider Internal Medicine Cardiovascular Disease; Visit Provider Internal Medicine Cardiovascular Disease
DX: I10 Essential (primary) hypertension (principal); E78.5 Hyperlipidemia, unspecified; R06.02 Shortness of breath; R53.83 Other fatigue
CPT/HCPCS: 36415; 80048; 80061; 80076; 83880; 84443; 85025

== ENCOUNTER → 2024-07-22 | Outpatient (CLI) | payer MEDICARE, OTHER, SELFPAY ==
[2024-07-22 13:04] LABS: Absolute Lymphocyte Count 2.07 X10^3/uL (0.83-4.51); Absolute Neutrophil Count 2.1 X10^3/uL (2.0-7.7); Basophil# 0.04 X10^3/uL; Basophil% 0.8 % (0-1); Eosinophil# 0.12 X10^3/uL; Eosinophils% 2.5 % (0-5); Hematocrit 41.5 % (37-47); Hemoglobin 14.3 g/dL (12.0-15.0); Lymphocyte # 2.07 X10^3/ul (0.83-4.51); Lymphocyte % 43.1 % (19-41); Mean Corp Hgb Conc 34.5 g/dL (32-36); Mean Corpuscular Hgb 31.6 pg (27.0-32.0); Mean Corpuscular Volume 91.6 fL (81-99); Mean Platelet Vol. 10.1 fl (6.2-12.0); Monocyte# 0.46 X10^3/uL; Monocyte% 9.6 % (0-10); NRBC Flagged by Analyzer 0 % (0-5); Neutrophil # 2.11 X10^3/uL (2.7-7.7); Platelet Count 283 K/mm3 (150-450); RBC Distribution Width CV 12.8 % (11.6-14.6); RBC Distribution Width SD 41.8 fl (35.1-43.9); Red Blood Count 4.53 M/mm3 (4.2-5.4); White Blood Count 4.8 K/mm3 (4.4-11.0)
[2024-07-22 19:18] LABS: ALB/GLOB Ratio 1.8 RATIO (0.9-2.4); AST(SGOT) 30 U/L (<=31); Alanine Aminotransfer ALT/SGPT 21 U/L (<=34); Albumin, Serum 4.1 g/dL (3.4-4.8); Alkaline Phosphatase 68 U/L (35-104); Anion Gap 13 (5-15); BUN 14 mg/dL (4-19); BUN/Creat Ratio 19.5 RATIO (10-20); Calcium 9.9 mg/dL (7.6-11.0); Carbon Dioxide 21.8 mmol/L (22.0-29.0); Chloride 100 mmol/L (96-108); Creatinine, Serum 0.7 mg/dL (0.6-1.0); EST Glomerular Filtration Rate 85 (>60); Globulin 2.3 g/dL (2.2-4.2); Glucose 103 mg/dL (70-99); Protein, Total 6.5 g/dL (5.9-8.4); Sodium Level 135 mmol/L (133-145); Total Bilirubin 0.41 mg/dL (0.00-1.30)
== END | disposition home or self-care (01) ==
LOC: MTLAB 10:24
PROVIDERS: PCP Internal Medicine; Referring Provider Internal Medicine Rheumatology; Visit Provider Internal Medicine Rheumatology
DX: M06.00 Rheumatoid arthritis without rheumatoid factor, unspecified site (principal); Z79.899 Other long term (current) drug therapy; M16.11 Unilateral primary osteoarthritis, right hip; M18.12 Unilateral primary osteoarthritis of first carpometacarpal joint, left hand
CPT/HCPCS: 36415; 80053; 85025

== ENCOUNTER → 2024-10-23 | Outpatient (CLI) | payer MEDICARE, OTHER, SELFPAY ==
[2024-10-23 17:45] LABS: Absolute Lymphocyte Count 2.25 X10^3/uL (0.83-4.51); Basophil# 0.05 X10^3/uL; Basophil% 0.8 % (0-1); Eosinophils% 1.7 % (0-5); Hematocrit 39.7 % (37-47); Hemoglobin 13.9 g/dL (12.0-15.0); Lymphocyte # 2.25 X10^3/ul (0.83-4.51); Lymphocyte % 38.1 % (19-41); Mean Corpuscular Hgb 31.2 pg (27.0-32.0); Mean Corpuscular Volume 89.2 fL (81-99); Mean Platelet Vol. 10.1 fl (6.2-12.0); Monocyte# 0.47 X10^3/uL; NRBC Flagged by Analyzer 0 % (0-5); Neutrophil # 3.01 X10^3/uL (2.7-7.7); Neutrophil % 51.1 % (47-70); Platelet Count 301 K/mm3 (150-450); RBC Distribution Width CV 12.4 % (11.6-14.6); RBC Distribution Width SD 40.4 fl (35.1-43.9); Red Blood Count 4.45 M/mm3 (4.2-5.4); White Blood Count 5.9 K/mm3 (4.4-11.0)
[2024-10-23 18:00] LABS: ALB/GLOB Ratio 1.9 RATIO (0.9-2.4); AST(SGOT) 31 U/L (<=31); Alanine Aminotransfer ALT/SGPT 17 U/L (<=34); Albumin, Serum 4.1 g/dL (3.4-4.8); Alkaline Phosphatase 72 U/L (35-104); Anion Gap 12 (5-15); BUN 17 mg/dL (4-19); BUN/Creat Ratio 21.2 RATIO (10-20); Calcium,Total 9.4 mg/dL (7.6-11.0); Carbon Dioxide 23.4 mmol/L (21.0-32.0); Chloride 99 mmol/L (98-108); Creatinine, Serum 0.82 mg/dL (0.70-1.20); EST Glomerular Filtration Rate 74 (>60); Globulin 2.2 g/dL (2.2-4.2); Glucose 97 mg/dL (70-99); Potassium 3.7 mmol/L (3.3-5.1); Protein, Total 6.3 g/dL (5.9-8.4); Sodium Level 134 mmol/L (133-145); Total Bilirubin 0.33 mg/dL (0.00-1.30)
== END | disposition home or self-care (01) ==
LOC: MTLAB 15:34
PROVIDERS: PCP Internal Medicine; Referring Provider Internal Medicine Rheumatology; Visit Provider Internal Medicine Rheumatology
DX: M06.00 Rheumatoid arthritis without rheumatoid factor, unspecified site (principal); Z79.899 Other long term (current) drug therapy
CPT/HCPCS: 36415; 80053; 85025

== ENCOUNTER → 2025-01-14 | Outpatient (CLI) | payer MEDICARE, OTHER, SELFPAY ==
[2025-01-14 10:41] LABS: Hematocrit 45.9 % (37-47); Hemoglobin 15.9 g/dL (12.0-15.0); Immature Granulocytes Count 0.040 X10^3/uL (0.0-0.0); Mean Corp Hgb Conc 34.6 g/dL (32-36); Mean Corpuscular Volume 93.1 fL (81-99); Mean Platelet Vol. 10.4 fl (6.2-12.0); NRBC Flagged by Analyzer 0 % (0-5); Platelet Count 356 K/mm3 (150-450); RBC Distribution Width CV 13.1 % (11.6-14.6); RBC Distribution Width SD 44.4 fl (35.1-43.9); Red Blood Count 4.93 M/mm3 (4.2-5.4); White Blood Count 9.1 K/mm3 (4.4-11.0)
[2025-01-14 11:05] LABS: AST(SGOT) 15 U/L (<=31); Alanine Aminotransfer ALT/SGPT 17 U/L (<=34); Albumin, Serum 4.3 g/dL (3.4-4.8); Alkaline Phosphatase 57 U/L (35-104); Anion Gap 12 (5-15); BUN 14 mg/dL (4-19); BUN/Creat Ratio 20.5 RATIO (10-20); Calcium,Total 9.6 mg/dL (7.6-11.0); Carbon Dioxide 23.9 mmol/L (21.0-32.0); Chloride 102 mmol/L (98-108); Globulin 2.2 g/dL (2.2-4.2); Glucose 76 mg/dL (70-99); Potassium 4.1 mmol/L (3.3-5.1)
== END | disposition home or self-care (01) ==
LOC: MTLAB 08:23
PROVIDERS: PCP Internal Medicine; Referring Provider Internal Medicine Rheumatology; Visit Provider Internal Medicine Rheumatology
DX: M06.00 Rheumatoid arthritis without rheumatoid factor, unspecified site (principal); M25.561 Pain in right knee; M16.11 Unilateral primary osteoarthritis, right hip; M18.12 Unilateral primary osteoarthritis of first carpometacarpal joint, left hand
CPT/HCPCS: 36415; 80053; 85025

== ENCOUNTER → 2025-01-27 | Outpatient (CLI) | payer MEDICARE, OTHER, SELFPAY ==
[2025-01-27 13:39] LABS: Color, Urine Yellow (Yellow); Glucose, Dipstick Normal (Normal); Ketone-Dipstick Negative (Negative); Leukocyte Esterase-Dipstick 500 /ul (Negative); Nitrite-Dipstick Negative (Negative); Occult Blood-Urine 10 /ul (Negative); Protein-Dipstick 15 mg/dl (Negative); Specific Gravity, Urine 1.010 (1.002-1.030); Urine Bilirubin Dipstick Negative (Negative)
[2025-01-27 14:25] LABS: AST(SGOT) 22 U/L (<=31); Alanine Aminotransfer ALT/SGPT 18 U/L (<=34); Albumin, Serum 4.2 g/dL (3.4-4.8); Alkaline Phosphatase 57 U/L (35-104); Anion Gap 10 (5-15); BUN 15 mg/dL (4-19); BUN/Creat Ratio 19.2 RATIO (10-20); Calcium,Total 9.4 mg/dL (7.6-11.0); Carbon Dioxide 23.8 mmol/L (21.0-32.0); Chloride 104 mmol/L (98-108); Globulin 1.8 g/dL (2.2-4.2); Glucose 86 mg/dL (70-99); Potassium 3.9 mmol/L (3.3-5.1)
[2025-01-27 15:04] LABS: Creatinine, Urine (random) 74.90 mg/dL (28.00-217.00); Microalbumin,Random Urine < 12.0 mg/L (<20 mg/L)
== END | disposition home or self-care (01) ==
PROVIDERS: PCP Internal Medicine; Referring Provider Internal Medicine; Visit Provider Internal Medicine
DX: I10 Essential (primary) hypertension (principal)
CPT/HCPCS: 80053; 81002; 82043; 82570

== ENCOUNTER → 2025-03-10 | Outpatient (CLI) | payer MEDICARE, OTHER, SELFPAY ==
--- NOTE | 2025-03-10 14:29 | BD_ITS ---
PROCEDURE: DEXA BONE DENSITY STUDY 03/10/2025 REASON FOR EXAM: F, age 79 y/o . Postmenopausal. TECHNIQUE: Procedure Code: BDDBD Modality: DX Procedure: DEXA BONE DENSITY STUDY COMPARISON: Prior study dated February 14, 2023. FINDINGS: BMD and T-SCORES Lumbar spine: 1.203 g/cm2, T-score 1.5 Levels: L1 through L4 Change from prior: Improvement of 7.3%. Left femoral neck: 0.629 g/cm2, T-score -2.0 Femoral neck comparison data not recommended for monitoring change. Left total hip: 0.750 g/cm2, T-score -1.6 Change from prior: Loss of 5.7%. The World Health Organization has defined the following categories based on bone density: Normal bone density: T-score equal to or greater than -1.0 Osteopenia: T-score between -1.0 and -2.5 Osteoporosis: T-score equal to or less than -2.5 FRAX (or Comparable) Fracture Risk Assessment: 10 Year Probability of Fracture: Major Osteoporotic Fracture: 26% Hip Fracture: 7.2% (Note: FRAX is not to be reported in setting of normal range bone density, osteoporosis on DEXA, known history of osteoporosis, prior osteoporotic hip or vertebral fracture, or for any patient undergoing pharmacological treatment for bone loss.) The National Osteoporosis Foundation (NOF) recommends pharmacological treatment for patients with a FRAX 10-year risk of 3% or higher for a hip fracture, or 20% or higher for a major osteoporotic fracture, to prevent osteoporosis and reduce fracture risk. The patient does meet the pharmacological treatment recommendations for prevention of osteoporosis. BD/Dexa Bone Density Study IMPRESSION: OSTEOPENIA. Recommend follow-up as clinically warranted. Reading Location: [place] [id number]
--- NOTE | 2025-03-10 15:00 | BI_ITS ---
EXAM: SCRN MAMM (CAD)W/JACKELIN BILAT DATE: 03/10/2025 CLINICAL HISTORY: F, Age 79 y/o , SCREENING No family history. Prior left ultrasound-guided breast biopsy. TECHNIQUE: Procedure Code: [id number] Modality: MG Procedure: SCRN MAMM (CAD)W/JACKELIN BILAT COMPARISON: Prior exam(s) dated February 18, 2024.. FINDINGS: TISSUE DENSITY: The breasts are heterogeneously dense, which may obscure small masses. Bilateral Breast Mammographic Findings: No significant masses, calcifications or other abnormalities are identified. A tissue clip marker is now seen in the central upper aspect of the left breast. Stable appearance of the 1.3 cm nodule at the site. No suspicious masses, areas of developing architectural distortion, or suspicious calcifications. There has been no significant interval change. BI/SCRN MAMM (CAD)W/JACKELIN BILAT IMPRESSION: Status post left ultrasound-guided breast biopsy. OVERALL FINAL ASSESSMENT BI-RADS 2: BENIGN RECOMMENDATION: Routine annual follow-up in 1 Year Additional Recommendation none A letter with findings and recommendations will be mailed to the patient. Reading Location: [place] [id number]
== END | disposition home or self-care (01) ==
LOC: OPBD 14:25
PROVIDERS: PCP Internal Medicine; Referring Provider Internal Medicine; Visit Provider Internal Medicine
DX: Z12.31 Encounter for screening mammogram for malignant neoplasm of breast (principal); Z78.0 Asymptomatic menopausal state
CPT/HCPCS: 77063; 77067; 77080

== ENCOUNTER → 2025-04-01 | Outpatient (CLI) | payer MEDICARE, OTHER, SELFPAY ==
[2025-04-01 12:37] LABS: Hematocrit 42.3 % (37-47); Hemoglobin 14.4 g/dL (12.0-15.0); Immature Granulocytes Count 0.010 X10^3/uL (0.0-0.0); Mean Corp Hgb Conc 34.0 g/dL (32-36); Mean Corpuscular Volume 93.4 fL (81-99); Mean Platelet Vol. 10.5 fl (6.2-12.0); NRBC Flagged by Analyzer 0 % (0-5); Platelet Count 279 K/mm3 (150-450); RBC Distribution Width CV 12.7 % (11.6-14.6); RBC Distribution Width SD 42.9 fl (35.1-43.9); Red Blood Count 4.53 M/mm3 (4.2-5.4); White Blood Count 4.5 K/mm3 (4.4-11.0)
[2025-04-01 12:48] LABS: AST(SGOT) 27 U/L (<=31); Alanine Aminotransfer ALT/SGPT 18 U/L (<=34); Albumin, Serum 3.3 g/dL (3.4-4.8); Alkaline Phosphatase 55 U/L (35-104); Anion Gap 15 (5-15); BUN 15 mg/dL (4-19); BUN/Creat Ratio 17.4 RATIO (10-20); Calcium,Total 8.9 mg/dL (7.6-11.0); Carbon Dioxide 20.5 mmol/L (21.0-32.0); Chloride 103 mmol/L (98-108); Globulin 2.4 g/dL (2.2-4.2); Glucose 80 mg/dL (70-99); Potassium 4.0 mmol/L (3.3-5.1)
== END | disposition home or self-care (01) ==
LOC: MTLAB 09:24
PROVIDERS: PCP Internal Medicine; Referring Provider Internal Medicine Rheumatology; Visit Provider Internal Medicine Rheumatology
DX: M06.00 Rheumatoid arthritis without rheumatoid factor, unspecified site (principal); M25.561 Pain in right knee; M16.11 Unilateral primary osteoarthritis, right hip; M18.12 Unilateral primary osteoarthritis of first carpometacarpal joint, left hand
CPT/HCPCS: 36415; 80053; 85025